=== PATIENT | female | born 1945 | race Caucasian/White ===

== ENCOUNTER → 2025-04-14 | Outpatient (CLI) | payer MEDICARE, OTHER, SELFPAY ==
--- NOTE | 2025-04-14 15:15 | RAD_ITS ---
PROCEDURE: CHEST PA AND LATERAL 04/14/2025 REASON FOR EXAM: COUGH TECHNIQUE: CHEST PA AND LATERAL COMPARISON: none FINDINGS: No focal consolidation. No pleural effusion or pneumothorax. Cardiac silhouette is within normal limits. Calcified aortic arch. No acute fractures. Right neck vesna. RAD/Chest PA and Lateral IMPRESSION: No focal consolidations. Reading Location: [facility]
== END | disposition home or self-care (01) ==
PROVIDERS: PCP Internal Medicine; Referring Provider Otolaryngology; Visit Provider Otolaryngology
DX: R05.9 Cough, unspecified (principal)
CPT/HCPCS: 71046

== ENCOUNTER 2025-04-20 10:20 | Observation (INO) | payer MEDICARE, OTHER, SELFPAY ==
[2025-04-20] VITALS (14 sets, daily range): BP systolic 136–174; BP diastolic 56–71; PULSE 42–56; RESP 10–21; TEMP 36.2–36.5; O2SAT 94–100; BMI 38.2; BMI 39.2
--- NOTE | 2025-04-20 10:50 | RAD_ITS ---
PROCEDURE: CHEST PA AND LATERAL 04/20/2025 REASON FOR EXAM: CHEST PAIN TECHNIQUE: CHEST PA AND LATERAL COMPARISON: April 14, 2025 FINDINGS: Hardware: EKG leads are present. Heart: Normal size. Aortic knob is atherosclerotic. Mediastinum: Normal Lungs: Clear. No pneumothorax or pleural effusion. Bones: Degenerative changes are identified within the thoracic spine. Advanced degenerative change with loose bodies at the proximal left humerus. Surgical clips overlying the thyroid gland. RAD/Chest PA and Lateral IMPRESSION: No acute cardiopulmonary process. Reading Location: [id number]
--- NOTE | 2025-04-20 10:50 | RAD_ITS ---
PROCEDURE: CHEST PA AND LATERAL 04/20/2025 REASON FOR EXAM: CHEST PAIN TECHNIQUE: CHEST PA AND LATERAL COMPARISON: April 14, 2025 FINDINGS: Hardware: EKG leads are present. Heart: Normal size. Aortic knob is atherosclerotic. Mediastinum: Normal Lungs: Clear. No pneumothorax or pleural effusion. Bones: Degenerative changes are identified within the thoracic spine. Advanced degenerative change with loose bodies at the proximal left humerus. Surgical clips overlying the thyroid gland. RAD/Chest PA and Lateral IMPRESSION: No acute cardiopulmonary process. Reading Location: [id number]
[2025-04-20 10:53] LABS: Hematocrit 45.8 % (37-47); Hemoglobin 14.8 g/dL (12.0-15.0); Immature Granulocytes Count 0.030 X10^3/uL (0.0-0.0); Mean Corp Hgb Conc 32.3 g/dL (32-36); Mean Corpuscular Volume 100.2 fL (81-99); Mean Platelet Vol. 10.6 fl (6.2-12.0); NRBC Flagged by Analyzer 0 % (0-5); Platelet Count 198 K/mm3 (150-450); RBC Distribution Width CV 13.2 % (11.6-14.6); RBC Distribution Width SD 48.6 fl (35.1-43.9); Red Blood Count 4.57 M/mm3 (4.2-5.4); White Blood Count 7.7 K/mm3 (4.4-11.0)
[2025-04-20 11:27] LABS: Anion Gap 11 (5-15); BUN 25 mg/dL (4-19); BUN/Creat Ratio 28.7 RATIO (10-20); Calcium,Total 9.5 mg/dL (7.6-11.0); Carbon Dioxide 24.4 mmol/L (21.0-32.0); Chloride 105 mmol/L (98-108); Estimated Creatinine Clearance 61.60 ml/min (50-250); Glucose 89 mg/dL (70-99); Potassium 4.7 mmol/L (3.3-5.1); Troponin T High Sensitivity 12 ng/L (<=14)
--- NOTE | 2025-04-20 12:13 | ED.VIS.CHEST ---
HPI History of Present Illness Chief Complaint: Chest Pain Narrative Narrative: Patient is a 79-year-old female presenting emergency department for chest pain. Patient has a past medical history of hypertension and hyperlipidemia. Patient states that she developed chest pain last night that she was about to go to sleep. She states she took Tums and it went away. She states today while she was at the dentist with her she developed midsternal chest pain that felt like a pressure that radiated across the front of her chest. She states it radiated up into her neck as well. She denies any shortness of breath. Denies any nausea, vomiting, diaphoresis. Denies any abdominal pain, dysuria, hematuria. Denies lower extremity edema. [facility] Medical History Hypercholesteremia Hypertension History of throat cancer Home Medications ?Medication ?Instructions ?Recorded ?Last Taken ?Type paroxetine HCl 40 mg tablet (Paxil) 20 mg PO DAILY 08/13/13 04/19/25 History Lactobacillus acidophilus 500 mmu cells PO DAILY 04/20/25 Unknown History (Acidophilus capsule) aspirin 81 mg capsule 81 mg PO DAILY 04/20/25 04/19/25 History atorvastatin 20 mg tablet 20 mg PO DAILY 04/20/25 04/19/25 History cholecalciferol (vitamin D3) 25 25 mcg PO DAILY 04/20/25 04/19/25 History mcg (1,000 unit) chewable tablet (VitaJoy Daily D) cyanocobalamin (B12)-cobamamide 5,000 robin sublingual DAILY 04/20/25 04/19/25 History 5,000 mcg-100 mcg sublingual supplement lozenge (B12) doxepin 10 mg/mL oral concentrate 5 mg PO DAILY 04/20/25 04/19/25 History levothyroxine 75 mcg tablet 75 mcg PO DAILY 04/20/25 04/20/25 History (Synthroid) lisinopril 5 mg tablet 5 mg PO DAILY 04/20/25 04/19/25 History multivitamin-ferrous 2 tab PO DAILY 04/20/25 Unknown History fumarate-folic acid 18 mg-400 mcg tablet ([employer] Complete Women's) omeprazole 20 mg capsule,delayed 20 mg PO DAILY 04/20/25 04/20/25 History release Allergy/AdvReac Type Severity Reaction Status Date / Time Sulfa (Sulfonamide Allergy Mild Rash Verified 04/20/25 10:21 Antibiotics) Family History Other Heart disease Surgical History History of surgery on wrist Hx of lymph node excision Social History Smoking Status: Former smoker ROS ROS ED ROS Narrative Please see HPI EXAM Physical Exam Narrative Exam Narrative: Vital signs: Reviewed General: Alert and oriented. No acute distress HEENT: Head is normocephalic and atraumatic, sinuses nontender, pupils equal round and reactive. Nares are patent. Oropharynx and throat exams normal. Neck: Supple without lymphadenopathy nontender Cardiovascular: Regular rate and rhythm, no murmurs. No rubs or gallops. Normal S1 and S2 Respiratory: Clear to auscultation bilaterally. No wheezes, rales, rhonchi Abdominal: Soft and tender. Normal bowel sounds. No guarding or rebound. Nonsurgical abdomen Extremities: No tenderness. No bruising. Normal range of motion. Normal sensation. Skin: No rash or redness. Neurological: Cranial nerves II through XII are grossly intact. Normal strength and sensation. Normal cerebellar function The rest of the physical exam is unremarkable Const Vital Signs: 04/20/25 10:21 04/20/25 10:25 04/20/25 11:30 Temperature 97.7 F L Temperature Source Oral Pulse Rate 51 L 49 L Respiratory Rate 12 13 Respiratory Pattern Normal Blood Pressure 174/62 H 161/56 H Blood Pressure Mean 99 86 Pulse Ox 97 99 Oxygen Delivery Method Room Air 04/20/25 11:45 04/20/25 12:00 04/20/25 12:15 Temperature Temperature Source Pulse Rate 46 L 47 L 42 L Respiratory Rate 13 21 H 10 L Respiratory Pattern Blood Pressure 155/71 H 158/67 H 154/61 H Blood Pressure Mean 95 95 89 Pulse Ox 97 99 98 Oxygen Delivery Method 04/20/25 12:30 04/20/25 12:45 04/20/25 13:00 Temperature Temperature Source Pulse Rate 43 L 47 L 42 L Respiratory Rate 11 L 12 10 L Respiratory Pattern Blood Pressure 163/59 H 157/63 H 152/58 H Blood Pressure Mean 89 92 86 Pulse Ox 97 97 100 Oxygen Delivery Method 04/20/25 14:00 04/20/25 15:00 04/20/25 15:04 Temperature 97.7 F L Temperature Source Pulse Rate 47 L 47 L 47 L Respiratory Rate 14 14 Respiratory Pattern Blood Pressure 143/59 H 158/62 H 158/62 H Blood Pressure Mean 87 94 94 Pulse Ox 99 97 97 Oxygen Delivery Method Room Air Room Air Heart Score History: Moderately Suspicious ECG: Normal Age: >/= 65 years Risk Factors: >/= 3 Risk Factors or History of CAD Troponin: </= Normal Limit Score: 5 MDM MDM MDM Narrative Medical decision making narrative: Patient is a 79-year-old female presenting to emergency department for chest pain. Patient was seen and examined. Vitals are stable. Patient resting bed comfortably no acute distress. Differential includes is not limited to ACS, less likely PE with no shortness of breath or hypoxia and no tachycardia, less likely aortic pathology, no ripping or tearing chest pain, pulses equal throughout, no significant HTN on exam. EKG shows sinus bradycardia with PACs. No ST elevation or depression noted. No significant T wave inversions. Chest x-ray, labs including troponin were ordered. Troponin reflex within normal limits. Blood work is largely unremarkable. Chest x-ray shows no acute radiographic abnormality. Patient was reevaluated and is pain-free at this time. Repeat EKG with no significant changes. Patient's heart score is elevated and they recommended admission for further cardiac evaluation, patient agreeable. Patient admitted to hospitalist under Dr. Henriquez for further management. Lab Data Labs: Laboratory Results - last 24 hr 04/20/25 04/20/25 04/20/25 10:25 13:11 15:00 WBC 7.7 RBC 4.57 Hgb 14.8 Hct 45.8 MCV 100.2 H MCH 32.4 H MCHC 32.3 RDW Std Deviation 48.6 H RDW Coeff of Awa 13.2 Plt Count 198 MPV 10.6 Immature Gran % (Auto) 0.400 Neut % (Auto) 59.5 Lymph % (Auto) 27.6 [place] % (Auto) 11.5 H Eos % (Auto) 0.5 Baso % (Auto) 0.5 Absolute Neuts (auto) 4.6 Absolute Lymphs (auto) 2.13 Nucleated RBC % 0 Sodium 141 Potassium 4.7 Chloride 105 Carbon Dioxide 24.4 Anion Gap 11 BUN 25 H Creatinine 0.87 Estim Creat Clear Calc 61.60 Est GFR (MDRD) Non-Af 68 BUN/Creatinine Ratio 28.7 H Glucose 89 Calcium 9.5 Troponin T High Sens 12 Troponin T Hi Sens 2 Hr 11 Troponin T Hi Sens 4Hr 12 Radiography Chest X-Ray - ED: 2 View, Read by ED Physician, No Acute Disease and No Infiltrates Diagnostic Testing: Clinical Impression(s) from Imaging Studies Chest X-Ray 04/20/25 10:50 IMPRESSION: No acute cardiopulmonary process. Reading Location: [id number] Management Discussion w/another healthcare provider: Hospitalist Discharge Plan Disposition Disposition: Acute Care Hospital [facility] Discharge Date/Time: 04/20/25 16:32
--- NOTE | 2025-04-20 12:36 | EKG12_ITS ---
Test Reason : CP Blood Pressure : */* mmHG Vent. Rate : 43 BPM Atrial Rate : 43 BPM P-R Int : 144 ms QRS Dur : 86 ms QT Int : 442 ms P-R-T Axes : 53 13 36 degrees QTcB Int : 373 ms Marked sinus bradycardia Abnormal ECG Confirmed by SONJA YBARRA, ROWAN ([id number]), supervising editor news reel MARYLIN ALY ([id number]) on 04/22/2025 7:35:40 AM Referred By: Confirmed By: ROWAN CASILLAS MD
--- NOTE | 2025-04-20 12:36 | EKG12_ITS ---
Test Reason : CP Blood Pressure : */* mmHG Vent. Rate : 43 BPM Atrial Rate : 43 BPM P-R Int : 144 ms QRS Dur : 86 ms QT Int : 442 ms P-R-T Axes : 53 13 36 degrees QTcB Int : 373 ms Marked sinus bradycardia Abnormal ECG Confirmed by SONJA YBARRA, ROWAN ([id number]), senior editor MARYLIN ALY ([id number]) on 04/22/2025 7:35:40 AM Referred By: Confirmed By: ROWAN CASILLAS MD
[2025-04-20 14:08] LABS: Troponin T High Sens 2 HR 11 ng/L (<=14)
[2025-04-20 15:37] LABS: Troponin T High Sens 4 HR 12 ng/L (<=14)
--- NOTE | 2025-04-20 16:02 | PCM.HP.STD ---
[facility] - General General Date of Service: 04/20/25 Chief Complaint: Chest pain [facility] Narrative REYNA ARCE, is a 79 F who presents with chest pain. Patient had 2 bouts of chest pain. The first was last night when she was sitting in her recliner she had a midsternal chest pain. Took some Tums and symptoms resolved shortly thereafter. And today she was in a waiting room for her 's doctor's appointment where she had chest pain and went across her chest. It lasted until she got to the emergency room. She did not take Tums at that time. By time she arrived to emergency room, her symptoms had resolved. She did not any other associated symptoms such as shortness of breath, diaphoresis, and abdominal pain. She presented to the emergency room and her workup here was unremarkable. Patient did have a stress test performed 2 years ago when she was living in [place] and that was negative. She had seen a tile grinder at that time who told her it was due to stress and anxiety. Patient did have chest pain back in 2012 where she underwent a left heart catheterization [facility] Medical History Hypercholesteremia Hypertension History of throat cancer Home Medications ?Medication ?Instructions ?Recorded ?Last Taken ?Type Bifidobacterium infantis 4 mg 4 mg PO DAILY 08/13/13 Unknown History capsule (Align (B.infantis)) Ranitidine [Zantac] 150 mg PO BID 08/13/13 Unknown History acetaminophen 650 mg 650 mg PO PRN PRN Pain 08/13/13 Unknown History tablet,extended release (Tylenol Arthritis Pain) alprazolam 0.5 mg tablet 0.5 mg PO BID 08/13/13 08/18/13 History aluminum hydrox-magnesium carb 254 355 ml PO 4X/DAY 08/13/13 Unknown History mg-237.5 mg/5 mL oral suspension (Gaviscon Extra Strength) amlodipine 5 mg tablet 5 mg PO DAILY 08/13/13 08/18/13 History calcium 500 mg (as 1 tab PO DAILY@0800 08/13/13 Unknown History carbonate)-vitamin D3 5 mcg (200 unit) tablet (Oyster Shell Calcium-Vitamin D3) lisinopril 40 mg tablet 40 mg PO DAILY 08/13/13 08/18/13 History metoprolol succinate 25 mg 25 mg PO DAILY 08/13/13 08/18/13 History tablet,extended release 24 hr oxybutynin chloride 10 mg 10 mg PO DAILY 08/13/13 Unknown History tablet,extended release 24 hr (Ditropan XL) paroxetine HCl 40 mg tablet (Paxil) 40 mg PO DAILY 08/13/13 08/18/13 History Allergy/AdvReac Type Severity Reaction Status Date / Time Sulfa (Sulfonamide Allergy Mild Rash Verified 04/20/25 10:21 Antibiotics) Family History Other Heart disease Surgical History History of surgery on wrist Hx of lymph node excision Social History Smoking Status: Former smoker ROS ROS Narrative All review of systems were negative except as mentioned above in the history of present illness and the other review of systems. Vital Signs Vital Signs Vital Signs: 04/20/25 10:21 04/20/25 10:25 04/20/25 11:30 Temperature 36.5 C L Temperature Source Oral Pulse Rate 51 L 49 L Respiratory Rate 12 13 Respiratory Pattern Normal Blood Pressure 174/62 H 161/56 H Blood Pressure Mean 99 86 Pulse Ox 97 99 Oxygen Delivery Method Room Air 04/20/25 11:45 04/20/25 12:00 04/20/25 12:15 Temperature Temperature Source Pulse Rate 46 L 47 L 42 L Respiratory Rate 13 21 H 10 L Respiratory Pattern Blood Pressure 155/71 H 158/67 H 154/61 H Blood Pressure Mean 95 95 89 Pulse Ox 97 99 98 Oxygen Delivery Method 04/20/25 12:30 04/20/25 12:45 04/20/25 13:00 Temperature Temperature Source Pulse Rate 43 L 47 L 42 L Respiratory Rate 11 L 12 10 L Respiratory Pattern Blood Pressure 163/59 H 157/63 H 152/58 H Blood Pressure Mean 89 92 86 Pulse Ox 97 97 100 Oxygen Delivery Method 04/20/25 14:00 04/20/25 15:00 04/20/25 15:04 Temperature 36.5 C L Temperature Source Pulse Rate 47 L 47 L 47 L Respiratory Rate 14 14 Respiratory Pattern Blood Pressure 143/59 H 158/62 H 158/62 H Blood Pressure Mean 87 94 94 Pulse Ox 99 97 97 Oxygen Delivery Method Room Air Room Air Weight Weight: 101 kg Body Mass Index (BMI) 38.2 Physical Exam Narrative - Physical Exam General: Alert, Oriented x3, Cooperative HEENT: Atraumatic, PERRLA, EOMI, Normocephalic Oral: Moist Mucosa, No Gingival or Mucosal Lesions/ Ulcerations Neck: Supple, No JVD, Negative Carotid Bruits Lungs: Clear to auscultation, Normal air movement Cardiovascular: Regular rate, Normal S1, Normal S2, No murmurs Abdomen: Bowel Sounds Present, Soft, Non Tender, Non-Distended, No Hepato-splenomegaly Extremities: No clubbing, No cyanosis, No edema, Capillary Refill Less than 3 Seconds Skin: No rashes, No breakdown Musculoskeletal: No Tenderness to Palpation of Joints or Extremities. Reproducible anterior chest wall tenderness. Neurological: Moves all extremities spontaneously. Psych/Mental Status: Normal Affect, Appropriate Results Lab / Micro Data Attestation: I reviewed the patient's lab results. 04/20/25 10:25 04/20/25 10:25 Labs: Laboratory Results - last 24 hr 04/20/25 10:25: WBC 7.7, RBC 4.57, Hgb 14.8, Hct 45.8, MCV 100.2 H, MCH 32.4 H, MCHC 32.3, RDW Std Deviation 48.6 H, RDW Coeff of Awa 13.2, Plt Count 198, MPV 10.6, Immature Gran % (Auto) 0.400, Neut % (Auto) 59.5, Lymph % (Auto) 27.6, [place] % (Auto) 11.5 H, Eos % (Auto) 0.5, Baso % (Auto) 0.5, Absolute Neuts (auto) 4.6, Absolute Lymphs (auto) 2.13, Nucleated RBC % 0, Sodium 141, Potassium 4.7, Chloride 105, Carbon Dioxide 24.4, Anion Gap 11, BUN 25 H, Creatinine 0.87, Estim Creat Clear Calc 61.60, Est GFR (MDRD) Non-Af 68, BUN/Creatinine Ratio 28.7 H, Glucose 89, Calcium 9.5, Troponin T High Sens 12 04/20/25 13:11: Troponin T Hi Sens 2 Hr 11 04/20/25 15:00: Troponin T Hi Sens 4Hr 12 EKG Initial EKG: Attestation: I personally reviewed and interpreted this EKG as follows: Prior EKG tracings: available for review EKG Rhythm Intrepretation: Sinus Bradycardia Imaging Radiology Impression Chest X-Ray 04/20/25 10:50 IMPRESSION: No acute cardiopulmonary process. Reading Location: [facility] Assessment & Plan Assessment/Plan (1) Chest pain: PLAN: Atypical Workup here has been unremarkable with negative troponin series. Patient had moved down to [place] and has recently back to the area. She does have a primary care doctor but does not have an appointment set up at this point in time. Explained to she and her family that I do not feel this is actually cardiac but could be related with GI issues as she does have a history of reflux and explained that this could be esophageal spasm given the intensity of chest pain and a negative cardiac workup. I did tell she and her family that she could do this is outpatient but it may be more difficult as she is not fully established with her primary care doctor yet to have stress test performed as outpatient. After lengthy discussion she agreed brought in to have a stress test. She is requesting a chemical stress test. Will start aspirin. If stress test is negative then we will discharge patient home . PLAN: Plan Hypertension: Continue lisinopril and metoprolol Anxiety: Continue with paroxetine VTE prophylaxis: Low risk given current observation status. CODE STATUS: Addressed with the patient. Patient wishes to be full code. Charges/Coding Visit Charges Inpatient E&M: 02668 Init Hosp L2
--- NOTE | 2025-04-20 16:02 | PCM.HP.STD ---
[facility] - General General Date of Service: 04/20/25 Chief Complaint: Chest pain [facility] Narrative REYNA ARCE, is a 79 F who presents with chest pain. Patient had 2 bouts of chest pain. The first was last night when she was sitting in her recliner she had a midsternal chest pain. Took some Tums and symptoms resolved shortly thereafter. And today she was in a waiting room for her 's doctor's appointment where she had chest pain and went across her chest. It lasted until she got to the emergency room. She did not take Tums at that time. By time she arrived to emergency room, her symptoms had resolved. She did not any other associated symptoms such as shortness of breath, diaphoresis, and abdominal pain. She presented to the emergency room and her workup here was unremarkable. Patient did have a stress test performed 2 years ago when she was living in [place] and that was negative. She had seen a marble installer at that time who told her it was due to stress and anxiety. Patient did have chest pain back in 2012 where she underwent a left heart catheterization [facility] Medical History Hypercholesteremia Hypertension History of throat cancer Home Medications ?Medication ?Instructions ?Recorded ?Last Taken ?Type Bifidobacterium infantis 4 mg 4 mg PO DAILY 08/13/13 Unknown History capsule (Align (B.infantis)) Ranitidine [Zantac] 150 mg PO BID 08/13/13 Unknown History acetaminophen 650 mg 650 mg PO PRN PRN Pain 08/13/13 Unknown History tablet,extended release (Tylenol Arthritis Pain) alprazolam 0.5 mg tablet 0.5 mg PO BID 08/13/13 08/18/13 History aluminum hydrox-magnesium carb 254 355 ml PO 4X/DAY 08/13/13 Unknown History mg-237.5 mg/5 mL oral suspension (Gaviscon Extra Strength) amlodipine 5 mg tablet 5 mg PO DAILY 08/13/13 08/18/13 History calcium 500 mg (as 1 tab PO DAILY@0800 08/13/13 Unknown History carbonate)-vitamin D3 5 mcg (200 unit) tablet (Oyster Shell Calcium-Vitamin D3) lisinopril 40 mg tablet 40 mg PO DAILY 08/13/13 08/18/13 History metoprolol succinate 25 mg 25 mg PO DAILY 08/13/13 08/18/13 History tablet,extended release 24 hr oxybutynin chloride 10 mg 10 mg PO DAILY 08/13/13 Unknown History tablet,extended release 24 hr (Ditropan XL) paroxetine HCl 40 mg tablet (Paxil) 40 mg PO DAILY 08/13/13 08/18/13 History Allergy/AdvReac Type Severity Reaction Status Date / Time Sulfa (Sulfonamide Allergy Mild Rash Verified 04/20/25 10:21 Antibiotics) Family History Other Heart disease Surgical History History of surgery on wrist Hx of lymph node excision Social History Smoking Status: Former smoker ROS ROS Narrative All review of systems were negative except as mentioned above in the history of present illness and the other review of systems. Vital Signs Vital Signs Vital Signs: 04/20/25 10:21 04/20/25 10:25 04/20/25 11:30 Temperature 36.5 C L Temperature Source Oral Pulse Rate 51 L 49 L Respiratory Rate 12 13 Respiratory Pattern Normal Blood Pressure 174/62 H 161/56 H Blood Pressure Mean 99 86 Pulse Ox 97 99 Oxygen Delivery Method Room Air 04/20/25 11:45 04/20/25 12:00 04/20/25 12:15 Temperature Temperature Source Pulse Rate 46 L 47 L 42 L Respiratory Rate 13 21 H 10 L Respiratory Pattern Blood Pressure 155/71 H 158/67 H 154/61 H Blood Pressure Mean 95 95 89 Pulse Ox 97 99 98 Oxygen Delivery Method 04/20/25 12:30 04/20/25 12:45 04/20/25 13:00 Temperature Temperature Source Pulse Rate 43 L 47 L 42 L Respiratory Rate 11 L 12 10 L Respiratory Pattern Blood Pressure 163/59 H 157/63 H 152/58 H Blood Pressure Mean 89 92 86 Pulse Ox 97 97 100 Oxygen Delivery Method 04/20/25 14:00 04/20/25 15:00 04/20/25 15:04 Temperature 36.5 C L Temperature Source Pulse Rate 47 L 47 L 47 L Respiratory Rate 14 14 Respiratory Pattern Blood Pressure 143/59 H 158/62 H 158/62 H Blood Pressure Mean 87 94 94 Pulse Ox 99 97 97 Oxygen Delivery Method Room Air Room Air Weight Weight: 101 kg Body Mass Index (BMI) 38.2 Physical Exam Narrative - Physical Exam General: Alert, Oriented x3, Cooperative HEENT: Atraumatic, PERRLA, EOMI, Normocephalic Oral: Moist Mucosa, No Gingival or Mucosal Lesions/ Ulcerations Neck: Supple, No JVD, Negative Carotid Bruits Lungs: Clear to auscultation, Normal air movement Cardiovascular: Regular rate, Normal S1, Normal S2, No murmurs Abdomen: Bowel Sounds Present, Soft, Non Tender, Non-Distended, No Hepato-splenomegaly Extremities: No clubbing, No cyanosis, No edema, Capillary Refill Less than 3 Seconds Skin: No rashes, No breakdown Musculoskeletal: No Tenderness to Palpation of Joints or Extremities. Reproducible anterior chest wall tenderness. Neurological: Moves all extremities spontaneously. Psych/Mental Status: Normal Affect, Appropriate Results Lab / Micro Data Attestation: I reviewed the patient's lab results. 04/20/25 10:25 04/20/25 10:25 Labs: Laboratory Results - last 24 hr 04/20/25 10:25: WBC 7.7, RBC 4.57, Hgb 14.8, Hct 45.8, MCV 100.2 H, MCH 32.4 H, MCHC 32.3, RDW Std Deviation 48.6 H, RDW Coeff of Awa 13.2, Plt Count 198, MPV 10.6, Immature Gran % (Auto) 0.400, Neut % (Auto) 59.5, Lymph % (Auto) 27.6, [place] % (Auto) 11.5 H, Eos % (Auto) 0.5, Baso % (Auto) 0.5, Absolute Neuts (auto) 4.6, Absolute Lymphs (auto) 2.13, Nucleated RBC % 0, Sodium 141, Potassium 4.7, Chloride 105, Carbon Dioxide 24.4, Anion Gap 11, BUN 25 H, Creatinine 0.87, Estim Creat Clear Calc 61.60, Est GFR (MDRD) Non-Af 68, BUN/Creatinine Ratio 28.7 H, Glucose 89, Calcium 9.5, Troponin T High Sens 12 04/20/25 13:11: Troponin T Hi Sens 2 Hr 11 04/20/25 15:00: Troponin T Hi Sens 4Hr 12 EKG Initial EKG: Attestation: I personally reviewed and interpreted this EKG as follows: Prior EKG tracings: available for review EKG Rhythm Intrepretation: Sinus Bradycardia Imaging Radiology Impression Chest X-Ray 04/20/25 10:50 IMPRESSION: No acute cardiopulmonary process. Reading Location: [facility] Assessment & Plan Assessment/Plan (1) Chest pain: PLAN: Atypical Workup here has been unremarkable with negative troponin series. Patient had moved down to [place] and has recently back to the area. She does have a primary care doctor but does not have an appointment set up at this point in time. Explained to she and her family that I do not feel this is actually cardiac but could be related with GI issues as she does have a history of reflux and explained that this could be esophageal spasm given the intensity of chest pain and a negative cardiac workup. I did tell she and her family that she could do this is outpatient but it may be more difficult as she is not fully established with her primary care doctor yet to have stress test performed as outpatient. After lengthy discussion she agreed brought in to have a stress test. She is requesting a chemical stress test. Will start aspirin. If stress test is negative then we will discharge patient home . PLAN: Plan Hypertension: Continue lisinopril and metoprolol Anxiety: Continue with paroxetine VTE prophylaxis: Low risk given current observation status. CODE STATUS: Addressed with the patient. Patient wishes to be full code. Charges/Coding Visit Charges Inpatient E&M: 40596 Init Hosp L2
--- NOTE | 2025-04-20 16:08 | CASEMGMT ---
Care Management Face to Face with patient for initial transition planning/care coordination assessment in the ED. 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 Patient alert and oriented. Patient willing to participate in assessment and is able to answer all questions appropriately. Patient's and children present at bedside; patient gave permission to speak in front of guests. Care providers, pharmacy, and demographics verified. Admitting Diagnosis: chest pain Other diagnosis history: hypertension, hyperlipidemia, throat cancer. PCP: Crystal Frye Specialists: orthopedic surgeon at [facility], though name is unknown Preferred Pharmacy: [facility] Insurance: Medicare A B (primary). Aetna Supplement (secondary). Prescription Benefit: yes Living Will/HPOA: yes, Gerardo is listed as primary. Gerardo intends to bring documents in during admission. LNOK: , Gerardo. Daughter, Zara. Son, Enio. Living Arrangements: with in a 1 story home with a basement; patient does not need to go to basement. 2 steps if entering from garage, 1 step if entering from front porch. Independent with all ADLs/IADLs. Transportation: patient drives DME: none HHC: none SNF/Rehab: none Community Resources: none Patient goals: Patient wishes to discharge home, denies need for home health care at this time. Patient denies any further needs or concerns at this time. Disposition Plan: admission to acute; RN CM/SW to follow for discharge planning needs that may arise. Raquel Gonzalez, RECEIPT AND REPORT CLERK, POISING INSPECTOR
--- NOTE | 2025-04-20 16:08 | CASEMGMT ---
Care Management Face to Face with patient for initial transition planning/care coordination assessment in the ED. This song writer introduced self and role at [facility]. Patient alert and oriented. Patient willing to participate in assessment and is able to answer all questions appropriately. Patient's and children present at bedside; patient gave permission to speak in front of guests. Care providers, pharmacy, and demographics verified. Admitting Diagnosis: chest pain Other diagnosis history: hypertension, hyperlipidemia, throat cancer. PCP: Crystal Frye Specialists: orthopedic surgeon at [facility], though name is unknown Preferred Pharmacy: [facility] Insurance: Medicare A B (primary). Aetna Supplement (secondary). Prescription Benefit: yes Living Will/HPOA: yes, Gerardo is listed as primary. Gerardo intends to bring documents in during admission. LNOK: , Gerardo. Daughter, Zara. Son, Enio. Living Arrangements: with in a 1 story home with a basement; patient does not need to go to basement. 2 steps if entering from garage, 1 step if entering from front porch. Independent with all ADLs/IADLs. Transportation: patient drives DME: none HHC: none SNF/Rehab: none Community Resources: none Patient goals: Patient wishes to discharge home, denies need for home health care at this time. Patient denies any further needs or concerns at this time. Disposition Plan: admission to acute; RN CM/SW to follow for discharge planning needs that may arise. Raquel Gonzalez, MANAGER HOME HEALTHCARE, TOWER EQUIPMENT INSTALLER
--- NOTE | 2025-04-20 16:45 | EKG12_ITS ---
Test Reason : Blood Pressure : */* mmHG Vent. Rate : 49 BPM Atrial Rate : 49 BPM P-R Int : 140 ms QRS Dur : 84 ms QT Int : 414 ms P-R-T Axes : 48 13 43 degrees QTcB Int : 373 ms Sinus bradycardia with Premature atrial complexes Otherwise normal ECG Confirmed by SONJA YBARRA, ROWAN ([id number]), science editor MARYLIN ALY ([id number]) on 04/22/2025 7:35:49 AM Referred By: Confirmed By: ROWAN CASILLAS MD
--- NOTE | 2025-04-20 16:45 | EKG12_ITS ---
Test Reason : Blood Pressure : */* mmHG Vent. Rate : 49 BPM Atrial Rate : 49 BPM P-R Int : 140 ms QRS Dur : 84 ms QT Int : 414 ms P-R-T Axes : 48 13 43 degrees QTcB Int : 373 ms Sinus bradycardia with Premature atrial complexes Otherwise normal ECG Confirmed by SONJA YBARRA, ROWAN ([id number]), editor map MARYLIN ALY ([id number]) on 04/22/2025 7:35:49 AM Referred By: Confirmed By: ROWAN CASILLAS MD
[2025-04-20] MEDS: 0.9% Saline Lock 10 ML Syringe IV (22:13)
[2025-04-20] MEDS: MELATONIN 10 MG TABLET 5 MG PO (22:13)
--- OUTSIDE RECORDS SUMMARY | 2025-04-20 22:57 | XMS RPT_ITS | CCD ---
Author Organization [facility] Care Team Providers Care Flue Gas Analyst Name Role Phone Unavailable Primary Care Provider UnavailEmma [place] Primary Care Provider Elizabeth Frye MD Primary Care Provider SHAMA CUELLAR Attending Unavailable SELF Referring Unavailable EILZABETH FRYE Primary Care Unavailable SHAMA CUELLAR Referring Unavailable ELIZABETH FRYE Primary Care Unavailable SHAMA CUELLAR Referring Unavailable ELIZABETH FRYE Primary Care Unavailable Yaron Lozoya Attending Unavailable Teagan Moura Primary Care Unavailable Uday Elizabeth Efren Primary Care Unavailable Maikel Carrasco Attending Unavailable Maikel Carrasco Referring Unavailable Dr. Elizabeth Frye MD Primary Care Provider [phone] Dr. Maikel Carrasco MD Attending Provider [phone] Maikel Carrasco MD Referring Provider Dr. Maile Muñoz MD Emergency Provider Unavailab Dr. Erich Ch DO Admit Provider Dr. Erich Henriquez DO Attending Provider Allergies Allergy Classification Reported Allergen(s) Allergy Type Date of Onset Reaction(s) Facility (2 sources) Sulfonamides (Antibiotic); Translations: [SULFA (SULFONAMIDE ANTIBIOTICS)] Drug Allergy 03-27-2025 [facility] (1 source) Sulfonamides (Antibiotic) Allergy to substance 04-20-2025 [facility] Medications Current Medications Medication Drug Class(es) Dates Sig (Normalized) Sig (Original) aspirin 81 mg oral tablet (2 sources) Platelet Aggregation Inhibitor, Nonsteroidal Anti-inflammatory Drug Start: 04-20-2025 take 1 capsule by mouth once daily Aspirin 81 mg capsule Active 81 mg PO DAILY April 20, 2025 12:00am Aspirin 81 mg ta b Take 81 mg by mouth. Active atorvastatin 20 mg oral tablet (2 sources) HMG-CoA Reductase Inhibitor Start: 04-20-2025 take 1 tablet by mouth once daily Atorvastatin 20 mg tablet Active 20 mg PO DAILY April 20, 2025 12:00am Start: 12-29-2024 take 1 tablet by zoarn th once daily atorvastatin (LIPITOR) 20 mg tablet Take 20 mg by mouth once daily. 12/29/2024 Active calcium carbonate 1250 mg / cholecalciferol 200 unt oral tablet (1 source) Vitamin D Start: 08-13-2013 take 1 tablet by mouth once daily Calcium Carbonate-Vitamin D3 (Os-Jack 500mg + D) 1 TABLET tablet Active 1 {tbl} PO DAILY@0800 August 13, 2013 1:00am cetirizine hydrochloride 10 mg oral capsule (1 source) Histamine-1 Receptor Antagonist Cetirizine (ZYRTEC) 10 mg cap Take by mouth. Active cholecalciferol 0.025 mg chewable tablet (1 source) Vitamin D Start: 04-20-2025 Cholecalciferol (Vitamin D3) (Vitajoy Daily D) 25 mcg (1,000 unit) tablet,chewable Active 25 ug PO DAILY April 20, 2025 12:00am cobamamide 0.1 mg / vitamin b12 5 mg sublingual tablet (1 source) Vitamin B12 Start: 04-20-2025 Cyanocobalamin-Cobama mide (B12) 5,000-100 mcg lozenge Active 5000 NMA SL April 20, 2025 12:00am cyanocobalamin/cobam amide (B12 SUBLINGUAL) (1 source) cyanocobalamin/c obama mide (B12 SUBLINGUAL) Dissolve 5,000 mcg under the tongue. Active doxepin hydrochloride 10 mg/ml oral solution (4 sources) Tricyclic Antidepressant Start: 04-20-2025 take 5 mg by mouth once daily Doxepin 10 mg/mL concentrate Active 5 mg PO DAILY April 20, 2025 12:00am Start: 03-27-2025 take 5 mg by mouth e very twenty-four hours as needed doxepin solution 10 mg/mL Take 0.5 mL by mouth at bedtime as needed for sedation. 03/27/2025 Active Start: 12-03-2024 End: 03-27-2025 take 10 mg by mouth once daily at bedtime doxepin solution 10 mg/mL Take 10 mg by mouth daily at bedtime. 12/03/2024 03/27/2025 Discontinued End: 03-27-2025 doxepin mouthwash 10 mg/mL (SINEquan) Use 5 mg as instructed every 24 hours. 03/27/2025 Discontinued fluticasone propionate 0.05 mg/actuat metered dose nasal spray (1 source) Corticosteroid take 2 spray(s) nasal route once daily fluticasone (FLONASE ALLERGY RELIEF) 50 mcg/actuation nasal spray Use 2 sprays in each nostril once daily. Active 12 hr guaiFENesin 600 mg extended release oral tablet (1 source) guaiFENesin (MUC INEX) 600 mg 12 hr tablet Take 600 mg by mouth as needed for cold/allergy symptoms. Active Lactobacillus acidophilus (2 sources) Start: Acidophilus Active April 20, 2025 12:00am Lactobacillus ac idophilus (ACIDOPHILUS PO) Take by mouth. Active levothyroxine sodium 0.075 mg oral tablet (2 sources) l-Thyroxine Start: 04-20-2025 take 1 tablet by mouth once daily Levothyroxine (Levothyroxine 75 Mcg Tablet) 75 mcg tablet Active 75 ug PO DAILY April 20, 2025 12:00am Start: 03-15-2025 take 1 tablet by zoran th once daily before breakfast SYNTHROID 75 mcg tablet Take 75 mcg by mouth daily before breakfast. 03/15/2025 Active lisinopril 5 mg oral tablet (3 sources) Angiotensin Converting Enzyme Inhibitor Start: 04-20-2025 take 1 tablet by mouth once daily Lisinopril 5 mg tablet Active 5 mg PO DAILY April 20, 2025 12:00am Start: 08-13-2013 End: 04-20-2025 take 1 tablet by mouth once daily Lisinopril 40 MG tablet Discontinued 40 mg PO DAILY August 13, 2013 1:00am April 20, 2025 4:13pm take 1 tablet by zoran th once daily lisinopril (ZESTRIL) 5 mg tablet Take 5 mg by mouth once daily. Active Vycegfhhjqvfa-Nqsiilva-Wnupf n (MULTIVITAMIN 50 PLUS) tab (1 source) Multivitamins-Mi nerals-Lutein (MULTIVITAMIN 50 PLUS) tab Take 1 tablet by mouth once daily. Active omeprazole 20 mg delayed rel ease oral capsule (2 sources) Proton Pump Inhibitor St ar t: take 1 capsule by mouth once daily Omeprazole 20 mg capsule,delayed release(DR/EC) Active 20 mg PO DAILY April 20, 2025 12:00am Start: 03-03-2025 take 1 capsule by [facility] once daily omeprazole (PRILOSEC) 20 mg capsule Take 20 mg by mouth once daily. 03/03/2025 Active PARoxetine mesylate 40 mg oral tablet (3 sources) Serotonin Reuptake Inhibitor Start: 08-13-2013 Paroxetine Hcl (Paxi l) 40 MG tablet Active 20 mg PO DAILY August 13, 2013 1:00am take 1 tablet by zoran once daily PARoxetine (PAXIL) 20 mg tablet Take 20 mg by mouth once daily. Active End: 03-27-2025 PARoxetine (PAXIL) 40 mg tab let Take 20 mg by mouth once daily. 03/27/2025 Discontinued (Dosage adjustment) ubidecarenone 100 mg oral ca psule (1 source) coenzyme Q10 (CO Q-10) 100 mg cap capsule Take 100 mg by mouth two times a day. Active Completed/Discontinued Medications Medication Drug Class(es) Dates Sig (Normalized) Sig (Original) 8 hr acetaminophen 650 mg extended release oral tablet (1 source) Start: 08-13-2013 End: 04-20-2025 Acetaminophen (Tylenol Arthritis) 650 MG tablet extended release Discontinued 650 mg PO NEEDED as needed for Pain August 13, 2013 1:00am April 20, 2025 4:12pm ALPRAZolam 0.5 mg oral tablet (1 source) Benzodiazepine Start: 08-13-2013 End: 04-20-2025 take 1 tablet by mouth twice daily Alprazolam 0.5 MG tablet Discontinued 0.5 mg PO TWICE A DAY August 13, 2013 1:00am April 20, 2025 4:12pm aluminum hydroxide 50.8 mg/ml / magnesium carbonate 47.5 mg/ml oral suspension (1 source) Start: 08-13-2013 End: 04-20-2025 take 1 mL by mouth four times daily Aluminum Hydrox-Magnesium Carb (Gaviscon Extra Strength Liq) 355 ML suspension Discontinued 355 mL PO 4 TIMES DAILY August 13, 2013 1:00am April 20, 2025 4:13pm amLODIPine 5 mg oral tablet (1 source) Dihydropyridine Calcium Channel Oscar Start: 08-13-2013 End: 04-20-2025 take 1 tablet by mouth once daily Amlodipine 5 MG tablet Discontinued 5 mg PO DAILY August 13, 2013 1:00am April 20, 2025 4:13pm bifidobacterium infantis 4 mg oral capsule (1 source) Start: 08-13-2013 End: 04-20-2025 take 1 capsule by mouth once daily Bifidobacterium Infantis (Align) 4 MG capsule Discontinued 4 mg PO DAILY August 13, 2013 1:00am April 20, 2025 4:13pm 24 hr metoprolol succinate 25 mg extended release oral tablet (1 source) beta-Adrenergic Oscar Start: 08-13-2013 End: 04-20-2025 take 1 tablet by mouth once daily Metoprolol Succinate 25 MG tablet Discontinued 25 mg PO DAILY August 13, 2013 1:00am April 20, 2025 4:13pm 24 hr oxybutynin chloride 10 mg extended release oral tablet (1 source) Cholinergic Muscarinic Antagonist Start: 08-13-2013 End: 04-20-2025 take 1 tablet by mouth once daily Oxybutynin Chloride (Ditropan Xl) 10 MG tablet extended release 24hr Discontinued 10 mg PO DAILY August 13, 2013 1:00am April 20, 2025 4:13pm raNITIdine 150 mg oral tablet (1 source) Histamine-2 Receptor Antagonist Start: 08-13-2013 End: 04-20-2025 take 1 tablet by mouth twice daily Ranitidine (Zantac) 150 MG tablet Discontinued 150 mg PO TWICE A DAY August 13, 2013 1:00am April 20, 2025 4:14pm Problems Active Problems Problem Classification Problem Date Documented Date Episodic/Chronic Cancer of head and neck (4 sources) History of malignant neoplasm of head and/or neck; Translations: [Personal history of malignant neoplasm of unspecified site of lip, oral cavity, and pharynx] Onset: 03-27-2025 03-27-2025 Episodic Disorders of lipid metabolism (3 sources) Hyperlipidemia; Translations: [Other hyperlipidemia] Onset: 03-27-2025 03-27-2025 Chronic Esophageal disorders (3 sources) Gastroesophageal reflux disease without esophagitis; Translations: [Gastro-esophageal reflux disease without esophagitis] Onset: 03-27-2025 03-27-2025 Chronic Essential hypertension (3 sources) Essential hypertension; Translations: [Essential (primary) hypertension] Onset: 03-27-2025 03-27-2025 Chronic Immunizations and screening for infectious disease (4 sources) Viral screening status; Translations: [Encounter for screening for other viral diseases] Onset: 03-27-2025 03-27-2025 Episodic Nonspecific chest pain (2 sources) Chest pain; Translations: [Chest pain, unspecified] 04-20-2025 Episodic Other connective tissue disease (3 sources) History of total knee arthroplasty; Translations: [Presence of right artificial knee joint] Onset: 09-17-2008 03-27-2025 Chronic Other connective tissue disease (1 source) Presence of right artificial knee joint; Translations: [Total knee replacement status, right] Onset: 03-27-2025 Chronic Other nervous system disorders (3 sources) Other chronic pain; Translations: [Chronic pain of both shoulders] Onset: 03-27-2025 Chronic Other non-traumatic joint disorders (1 source) Bilateral chronic pain of upper limbs; Translations: [Pain in right shoulder] 03-27-2025 Episodic Other non-traumatic joint disorders (2 sources) Pain in left knee; Translations: [Pain in joint, lower leg] Onset: 03-27-2025 03-27-2025 Episodic Other non-traumatic joint disorders (1 source) Pain in right shoulder; Translations: [Chronic pain of both shoulders] Onset: 03-27-2025 Episodic Other non-traumatic joint disorders (1 source) Pain in left shoulder; Translations: [Chronic pain of both shoulders] Onset: 03-27-2025 Episodic Other screening for suspected conditions (not mental disorders or infectious disease) (4 sources) Patient encounter status; Translations: [Encounter for screening mammogram for malignant neoplasm of breast] Onset: 03-27-2025 03-27-2025 Episodic Residual codes; unclassified (2 sources) Menopause present; Translations: [Asymptomatic menopausal state] 03-27-2025 Episodic Residual codes; unclassified (1 source) Asymptomatic menopausal state; Translations: [Asymptomatic menopause] Onset: 03-27-2025 Episodic Screening and history of mental health and substance abuse codes (2 sources) Encounter for screening for depression; Translations: [Encounter for screening examination for other mental health and behavioral disorders] Onset: 03-27-2025 Episodic Spondylosis; intervertebral disc disorders; other back problems (3 sources) Chronic neck pain; Translations: [Cervicalgia] Onset: 03-27-2025 03-27-2025 Episodic Thyroid disorders (3 sources) Acquired hypothyroidism; Translations: [Hypothyroidism, unspecified] Onset: 03-27-2025 03-27-2025 Chronic Unclassified (2 sources) Patient encounter status 03-27-2025 Unclassified (1 source) Bilateral chronic pain of upper limbs 03-27-2025 Unclassified (1 source) Chronic pain of left knee 03-27-2025 Past or Other Problems Problem Classification Problem Date Documented Da te Episodic/Chronic Other gastrointestinal disorders (1 source) Pharyngeal dysphagia; Translations: [Dysphagia, pharyngeal phase] Onset: 03-27-2025 Resolved: 03-27-2025 03-27-2025 Episodic Results Test Name Value Interpretation Reference Range Facility Absolute lymphocyte countOrd ered By: Maile Muñoz on 04-20-2025 Lymphocytes Auto (Unsp spec) [#/Vol] 2.13 10*3/uL 0.83-4.51 [facility] Absolute neutrophil countOrd ered By: Maile Muñoz on 04-20-2025 Neutrophils (Bld) [#/Vol] 4.6 10*3/uL 2.0-7.7 [facility] Anion gap in Serum or Plasma Ordered By: Maile Muñoz on 04-20-2025 Anion gap [Moles/Vol] 11 mmol/L 5-15 [facility] Automated lymphocyte count a s percentage of total leukocytesOrdered By: Maile Muñoz on 04-20-2025 Lymphocytes/100 WBC Auto (Unsp spec) 27.6 % 19-41 [facility] BUN/creatinine ratioOrdered By: Maile Muñoz on 04-20-2025 Urea nitrogen/Creatinine [Mass ratio] 28.7 mg/mg High 10-20 [facility] Basophil percentageOrdered B y: Maile Muñoz on 04-20-2025 Basophils/100 WBC (Bld) 0.5 % 0-1 [facility] Carbon dioxide, total [Moles /volume] in Central venous bloodOrdered By: Maile Muñoz on 04-20-2025 CO2 [Moles/Vol] 24.4 mmol/L 21.0-32.0 [facility] Chloride assayOrdered By: Ramón Muñoz on 04-20-2025 Chloride [Moles/Vol] 105 mmol/L 98-108 [facility] Eosinophil percentageOrdered By: Maile Muñoz on 04-20-2025 Eosinophils/100 WBC (Bld) 0.5 % 0-5 [facility] Erythrocyte distribution wid th ratioOrdered By: Maile Muñoz on 04-20-2025 Erythrocyte distribution width (RBC) [Ratio] 13.2 % 11.6-14.6 [facility] Erythrocyte distribution wid th standard deviationOrdered By: Maile Muñoz on 04-20-2025 Erythrocyte distribution width (RBC) [Ratio] 48.6 fl High 35.1-43.9 [facility] Glomerular filtration rate ( GFR) estimation/1.73 sq m using serum, plasma, or whole bOrdered By: Maile Muñoz on 04-20-2025 GFR/1.73 sq M.predicted among non-blacks MDRD (S/P/Bld) [Vol rate/Area] 68 mL/min/{1.73_m2} >60 [facility] Comment on above: mL/min/1.73m2 CKD-EP I Creatinine Equation (2020) Hematocrit Auto (Bld) [Volum e fraction]Ordered By: Maile Muñoz on 04-20-2025 Hematocrit (Bld) [Volume fraction] 45.8 % 37-47 [facility] Hemoglobin measurementOrdere d By: Maile Muñoz on 04-20-2025 Hemoglobin (Bld) [Mass/Vol] 14.8 g/dL 12.0-15.0 [facility] Immature granulocytes/100 WB C Auto (Bld)Ordered By: Maile Muñoz on 04-20-2025 Immature granulocytes/100 WBC (Bld) 0.400 % 0.0-0.9 [facility] Comment on above: IG% - Immature Granu locytes (promyelocytes, myelocytes and metamyelocytes) > 1% indicates that a LEFT SHIFT is Present. MCV (mean corpuscular volume ) determinationOrdered By: Maile Muñoz on 04-20-2025 MCV (RBC) [Entitic vol] 100.2 fL High 81-99 [facility] Mean corpuscular hemoglobin (MCH) determinationOrdered By: Maile Muñoz on 04-20-2025 MCH (RBC) [Entitic mass] 32.4 pg High 27.0-32.0 [facility] Mean corpuscular hemoglobin concentration (MCHC) determinationOrdered By: Maile Muñoz on 04-20-2025 MCHC (RBC) [Mass/Vol] 32.3 g/dL 32-36 [facility] Mean platelet volume determi nationOrdered By: Maile Muñoz on 04-20-2025 Platelet mean volume (Bld) [Entitic vol] 10.6 fL 6.2-12.0 [facility] Monocyte percentageOrdered B y: Maile Muñoz on 04-20-2025 Monocytes/100 WBC (Bld) 11.5 % High 0-10 [facility] Neutrophil percentageOrdered By: Maile Muñoz on 04-20-2025 Neutrophils/100 WBC (Bld) 59.5 % 47-70 [facility] Nucleated red blood cell per centageOrdered By: Maile Muñoz on 04-20-2025 Nucleated RBC/100 WBC (Bld) [Ratio] 0 % 0-5 [facility] Platelet countOrdered By: Ramón Muñoz on 04-20-2025 Platelets (Bld) [#/Vol] 198 10*3/uL 150-450 [facility] Potassium measurement (mass/ volume)Ordered By: Maile Muñoz on 04-20-2025 Potassium (Unsp spec) [Mass/Vol] 4.7 mmol/L 3.3-5.1 [facility] Comment on above: Hemolysis present, R esults could be affected. RBC Auto (Bld) [#/Vol]Ordere d By: Maile Muñoz on 04-20-2025 RBC (Bld) [#/Vol] 4.57 10*6/uL 4.2-5.4 [facility] Serum creatinine measurement (mass/volume)Ordered By: Maile Muñoz on 04-20-2025 Creatinine [Mass/Vol] 0.87 mg/dL 0.70-1.20 [facility] Serum glucose measurement (m ass/volume)Ordered By: Maile Muñoz on 04-20-2025 Glucose [Mass/Vol] 89 mg/dL 70-99 [facility] Serum or plasma calcium jose urement (mass/volume)Ordered By: Maile Muñoz on 04-20-2025 Calcium [Mass/Vol] 9.5 mg/dL 7.6-11.0 [facility] Serum or plasma urea nitroge n measurement (mass/volume)Ordered By: Maile Muñoz on 04-20-2025 Urea nitrogen [Mass/Vol] 25 mg/dL High 4-19 [facility] Sodium levelOrdered By: Erich Muñoz on 04-20-2025 Sodium [Moles/Vol] 141 mmol/L 133-145 [facility] Troponin T.cardiac [Mass/vol ume] in Serum or Plasma by High sensitivity methodOrdered By: Maile Muñoz on 04-20-2025 Troponin T.cardiac High sensitivity method [Mass/Vol] 11 ng/L <14 [facility] Troponin T.cardiac High sensitivity method [Mass/Vol] 12 ng/L <14 [facility] Comment on above: Hemolysis present, R esults could be affected. White blood cell (WBC) count Ordered By: Maile Muñoz on 04-20-2025 WBC (Bld) [#/Vol] 7.7 10*3/uL 4.4-11.0 [facility] Chest PA and Lateralon 04-14 Chest PA and Lateral [facility] Imaging Services [address] [place] [address] [id number] Chest PA and Lateral MR#: [id number] Acct: [id number] Name: ANNETTA MURDOCK Rep #: [id number] : 1945 F [id number] From: Jean Schwartz PCP: Dr. Elizabeth Frye MD Status: [facility] CLI Study: Chest PA and Lateral Date of Exam: 04/14/25 Exam# [id number] Ordering Dr: Maikel Carrasco MD PROCEDURE: CHEST PA AND LATERAL 04/14/2025 REASON FOR EXAM: COUGH TECHNIQUE: CHEST PA AND LATERAL COMPARISON: none FINDINGS: No focal consolidation. No pleural effusion or pneumothorax. Cardiac silhouette is within normal limits. Calcified aortic arch. No acute fractures. Right neck vesna. RAD/Chest PA and Lateral IMPRESSION: No focal consolidations. Reading Location: [facility] CC: Dr. Maikel Carrasco MD; Dr. Elizabeth Frye MD Patrol Man: Signed Normal [facility] Lipid 1996 panelon 5 Cholesterol [Mass/Vol] 140 mg/dL Normal <200 [facility] Comment on above: Order Comment: Masha king Type: BLOOD SPECIMEN Ordering Facility: [facility] Address: [address] [place] [address] Result Comment: <200 mg/dL, Desirable 200-239 mg/dL, Borderline high >239 mg/dL, High Performed By: #### 2 4331-1 #### [facility] CLIA [id number] [address] [place] [address] STATES OF [facility] CLIA [id number] [address] [place] [address] Cholesterol in HDL [Mass/Vol] 65 mg/dL Normal >39 [facility] Comment on above: Order Comment: Masha king Type: BLOOD SPECIMEN Ordering Facility: [facility] Address: [address] [place] [address] Result Comment: 40-5 9 mg/dL, Acceptable >59 mg/dL, High: Negative risk factor for coronary heart disease <40 mg/dL, Low: Positive risk factor for coronary heart disease Performed By: #### 2 4331-1 #### [facility] CLIA [id number] [address] [place] [address] STATES OF [facility] CLIA [id number] [address] [place] [address] Cholesterol in LDL [Mass/Vol] 59 mg/dL Normal <100 [facility] Comment on above: Order Comment: Masha men Type: BLOOD SPECIMEN Ordering Facility: [facility] Address: [address] [place] [address] Result Comment: <100 mg/dL, Optimal 100-129 mg/dL, Near optimal/above optimal 130-159 mg/dL, Borderline high 160-189 mg/dL, High >189 mg/dL, Very high Secondary prevention optimal LDL Cholesterol levels are recommended to be <70 mg/dL LDL cholesterol is calculated using the Matthews-NIH equation. Performed By: #### 2 4331-1 #### [facility] CLIA [id number] [address] [place] [address] [place] [facility] CLIA [id number] [address] [place] [address] [place] Cholesterol in LDL/Cholesterol in HDL [Mass ratio] 0.91 {ratio} Normal <2.54 [facility] Comment on above: Order Comment: Speci men Type: BLOOD SPECIMEN Ordering Facility: [facility] Address: [address] [place] [address] Result Comment: Keo solis: 1. National Cholesterol Education Program ATP III Guideline At-A-Glance Quick Desk Reference: National Heart, Lung, and Blood [place]. National Institutes of Health. 2001: NIH Publication No. 01-3305. 2. An International Atherosclerosis Society position paper: global recommendations for the management of dyslipidemia: executive summary, Atherosclerosis. 2014: 232(2):410-413. Performed By: #### 2 4331-1 #### [facility] CLIA [id number] [address] [place] [address] [place] [facility] CLIA [id number] [address] [place] [address] [place] Cholesterol in VLDL [Mass/Vol] 12 mg/dL Normal <30 [facility] Comment on above: Order Comment: Speci men Type: BLOOD SPECIMEN Ordering Facility: [facility] Address: [address] [place] [address] Performed By: #### 2 4331-1 #### [facility] CLIA [id number] [address] [place], [place] [id number] [place] [facility] CLIA [id number] [address] [place] [address] [place] Cholesterol non HDL [Mass/Vol] 75 mg/dL Normal <130 [facility] Comment on above: Order Comment: Speci men Type: BLOOD SPECIMEN Ordering Facility: [facility] Address: [address] [place] [address] Result Comment: <130 mg/dL, Optimal 130-159 mg/dL, Near optimal/above optimal 160-189 mg/dL, Borderline high 190-219 mg/dL, High >219 mg/dL, Very high Secondary prevention optimal non HDL Cholesterol levels are recommended to be <100 mg/dL Performed By: #### 2 4331-1 #### [facility] CLIA [id number] [address] [place] [address] [place] [facility] CLIA [id number] [address] [place] [address] [place] Cholesterol.total/Choles terol in HDL [Mass ratio] 2.15 {ratio} Normal <5.10 [facility] Comment on above: Order Comment: Speci men Type: BLOOD SPECIMEN Ordering Facility: [facility] Address: [address] [place] [address] Performed By: #### 2 4331-1 #### [facility] CLIA [id number] [address] [place] [address] [place] [facility] CLIA [id number] [address] [place] [address] [place] FASTING TIME 12 hrs Normal [facility] Comment on above: Order Comment: Speci men Type: BLOOD SPECIMEN Ordering Facility: [facility] Address: [address] [place] [address] Performed By: #### 2 4331-1 #### [facility] CLIA [id number] [address] [place] [address] [place] [facility] CLIA [id number] [address] [place] [address] STATES [facility] Triglyceride [Mass/Vol] 86 mg/dL Normal <150 [facility] Comment on above: Order Comment: Speci men Type: BLOOD SPECIMEN Ordering Facility: [facility] Address: [address] [place] [address] Result Comment: <150 mg/dL, Normal 150-199 mg/dL, Borderline high 200-499 mg/dL, High >499 mg/dL, Very high Performed By: #### 2 4331-1 #### [facility] CLIA [id number] [address] [place] [address] [address] [address] [place] [facility] CLIA [id number] [address] [place] [address] [place] OF [facility] CBC W Auto Differential pane l (Bld)on 03-27-2025 Basophils (Bld) [#/Vol] 0.06 10*3/uL [facility] Basophils/100 WBC (Bld) 0.8 % C [facility] Differential cell count method Nom (Bld) Auto [facility] Eosinophils (Bld) [#/Vol] 0.12 10*3/uL [facility] Eosinophils/100 WBC (Bld) 1.5 % [facility] Erythrocyte distribution width (RBC) [Ratio] 13 % 11.5 - 15.0 % [facility] Hematocrit (Bld) [Volume fraction] 46.6 % High 36.0 - 46.0 % [facility] Hemoglobin (Bld) [Mass/Vol] 15.2 g/dL 11.5 - 15.5 g/dL [facility] Immature granulocytes (Bld) [#/Vol] NINF [facility] Immature granulocytes/100 WBC (Bld) 0.1 % [facility] Interpretation and review of laboratory results Abnormal [facility] Lymphocytes (Bld) [#/Vol] 1.88 10*3/uL [facility] Lymphocytes/100 WBC (Bld) 23.8 % [facility] MCH (RBC) [Entitic mass] 32.7 pg 26. 0 - 34.0 pg [facility] MCHC (RBC) [Mass/Vol] 32.6 g/dL 30.5 - 36.0 g/dL [facility] MCV (RBC) [Entitic vol] 100.2 fL High 80.0 - 100.0 fL [facility] Monocytes (Bld) [#/Vol] 0.81 10*3/uL [facility] Monocytes/100 WBC (Bld) 10.2 % [facility] Neutrophils (Bld) [#/Vol] 5.03 10*3/uL [facility] Neutrophils/100 WBC (Bld) 63.6 % [facility] Nucleated RBC (Bld) [#/Vol] NINF [facility] Nucleated RBC/100 WBC (Bld) [Ratio] 0 % /100 WBC [facility] Platelet mean volume (Bld) [Entitic vol] 11.3 fL 9.0 - 12.7 fL [facility] Platelets (Bld) [#/Vol] 226 10*3/uL [facility] RBC (Bld) [#/Vol] 4.65 10*6/uL 3.90 - 5.2 0 m/uL [facility] WBC (Bld) [#/Vol] 7.91 10*3/uL [facility] Basophils (Bld) [#/Vol] 0.06 10*3/uL Normal <0.11 [facility] Comment on above: Order Comment: Speci men Type: BLOOD SPECIMEN Ordering Facility: [facility] Address: [address] [place] [address] Performed By: #### 5 7021-8 #### [facility] CLIA [id number] [address] [place] [address] [place] Basophils/100 WBC (Bld) 0.8 % Normal [facility] Comment on above: Order Comment: Speci men Type: BLOOD SPECIMEN Ordering Facility: [facility] Address: [address] [place] [address] Performed By: #### 5 7021-8 #### [facility] CLIA [id number] [address] [place] [address] [place] Differential cell count method Nom (Bld) Auto Normal [facility] Comment on above: Order Comment: Speci men Type: BLOOD SPECIMEN Ordering Facility: [facility] Address: [address] [place] [address] Performed By: #### 5 7021-8 #### [facility] CLIA [id number] [address] [place] [address] [place] Eosinophils (Bld) [#/Vol] 0.12 10*3/uL Normal <0.46 [facility] Comment on above: Order Comment: Speci men Type: BLOOD SPECIMEN Ordering Facility: [facility] Address: [address] [place] [address] Performed By: #### 5 7021-8 #### [facility] CLIA [id number] [address] [place] [address] [place] Eosinophils/100 WBC (Bld) 1.5 % Normal [facility] Comment on above: Order Comment: Speci men Type: BLOOD SPECIMEN Ordering Facility: [facility] Address: [address] [place] [address] Performed By: #### 5 7021-8 #### [facility] CLIA [id number] [address] [place] [address] [place] Erythrocyte distribution width (RBC) [Ratio] 13.0 % Normal 11.5-15.0 [facility] Comment on above: Order Comment: Speci men Type: BLOOD SPECIMEN Ordering Facility: [facility] Address: [address] [place] [address] Performed By: #### 5 7021-8 #### [facility] CLIA [id number] [address] [place] [address] [place] Hematocrit (Bld) [Volume fraction] 46.6 % High 36.0-46.0 [facility] Comment on above: Order Comment: Speci men Type: BLOOD SPECIMEN Ordering Facility: [facility] Address: [address] [place] [address] Performed By: #### 5 7021-8 #### [facility] CLIA [id number] [address] [place] [address] [place] Hemoglobin (Bld) [Mass/Vol] 15.2 g/dL Normal 11.5-15.5 [facility] Comment on above: Order Comment: Speci men Type: BLOOD SPECIMEN Ordering Facility: [facility] Address: [address] [place] [address] Performed By: #### 5 7021-8 #### [facility] CLIA [id number] [address] [place] [address] [place] Immature granulocytes (Bld) [#/Vol] 10*3/uL Normal <0.10 [facility] Comment on above: Order Comment: Speci men Type: BLOOD SPECIMEN Ordering Facility: [facility] Address: [address] [place] [address] Performed By: #### 5 7021-8 #### [facility] CLIA [id number] [address] [place] [address] [place] Immature granulocytes/100 WBC (Bld) 0.1 % Normal [facility] Comment on above: Order Comment: Speci men Type: BLOOD SPECIMEN Ordering Facility: [facility] Address: [address] [place] [address] Performed By: #### 5 7021-8 #### [facility] CLIA [id number] [address] [place] [address] [place] Lymphocytes (Bld) [#/Vol] 1.88 10*3/uL Normal 1.00-4.00 [facility] Comment on above: Order Comment: Speci men Type: BLOOD SPECIMEN Ordering Facility: [facility] Address: [address] [place] [address] Performed By: #### 5 7021-8 #### [facility] CLIA [id number] [address] [place] [address] [place] Lymphocytes/100 WBC (Bld) 23.8 % Normal [facility] Comment on above: Order Comment: Speci men Type: BLOOD SPECIMEN Ordering Facility: [facility] Address: [address] [place] [address] Performed By: #### 5 7021-8 #### [facility] CLIA [id number] [address] [place] [address] [place] MCH (RBC) [Entitic mass] 32.7 pg Normal 26.0-34.0 [facility] Comment on above: Order Comment: Speci men Type: BLOOD SPECIMEN Ordering Facility: [facility] Address: [address] [place] [address] Performed By: #### 5 7021-8 #### [facility] CLIA [id number] [address] [place] [address] [place] MCHC (RBC) [Mass/Vol] 32.6 g/dL Normal 30.5-36.0 [facility] Comment on above: Order Comment: Speci men Type: BLOOD SPECIMEN Ordering Facility: [facility] Address: [address] [place] [address] Performed By: #### 5 7021-8 #### [facility] CLIA [id number] [address] [place] [address] [place] MCV (RBC) [Entitic vol] 100.2 fL High 80.0-100.0 [facility] Comment on above: Order Comment: Speci men Type: BLOOD SPECIMEN Ordering Facility: [facility] Address: [address] [place] [address] Performed By: #### 5 7021-8 #### [facility] CLIA [id number] [address] [place] [address] [place] Monocytes (Bld) [#/Vol] 0.81 10*3/uL Normal <0.87 [facility] Comment on above: Order Comment: Speci men Type: BLOOD SPECIMEN Ordering Facility: [facility] Address: [address] [place], [place] [address] Performed By: #### 5 7021-8 #### [facility] CLIA [id number] [address] [place] [address] [place] Monocytes/100 WBC (Bld) 10.2 % Normal [facility] Comment on above: Order Comment: Speci men Type: BLOOD SPECIMEN Ordering Facility: [facility] Address: [address] [place] [address] Performed By: #### 5 7021-8 #### [facility] CLIA [id number] [address] [place] [address] [place] Neutrophils (Bld) [#/Vol] 5.03 10*3/uL Normal 1.45-7.50 [facility] Comment on above: Order Comment: Speci men Type: BLOOD SPECIMEN Ordering Facility: [facility] Address: [address] [place] [address] Performed By: #### 5 7021-8 #### [facility] CLIA [id number] [address] [place] [address] [place] Neutrophils/100 WBC (Bld) 63.6 % Normal [facility] Comment on above: Order Comment: Speci men Type: BLOOD SPECIMEN Ordering Facility: [facility] Address: [address] [place] [address] Performed By: #### 5 7021-8 #### [facility] CLIA [id number] [address] [place] [address] [place] Nucleated RBC (Bld) [#/Vol] 10*3/uL Normal <0.01 [facility] Comment on above: Order Comment: Speci men Type: BLOOD SPECIMEN Ordering Facility: [facility] Address: [address] [place] [address] Performed By: #### 5 7021-8 #### [facility] CLIA [id number] [address] [place] [address] [place] Nucleated RBC/100 WBC (Bld) [Ratio] 0.0 /100 WBC Normal [facility] Comment on above: Order Comment: Speci men Type: BLOOD SPECIMEN Ordering Facility: [facility] Address: [address] [place] [address] Performed By: #### 5 7021-8 #### [facility] CLIA [id number] [address] [place] [address] [place] Platelet mean volume (Bld) [Entitic vol] 11.3 fL Normal 9.0-12.7 [facility] Comment on above: Order Comment: Speci men Type: BLOOD SPECIMEN Ordering Facility: [facility] Address: [address] [place] [address] Performed By: #### 5 7021-8 #### [facility] CLIA [id number] [address] [place] [address] [place] Platelets (Bld) [#/Vol] 226 10*3/uL Normal 150-400 [facility] Comment on above: Order Comment: Speci men Type: BLOOD SPECIMEN Ordering Facility: [facility] Address: [address] [place] [address] Performed By: #### 5 7021-8 #### [facility] CLIA [id number] [address] [place] [address] [place] RBC (Bld) [#/Vol] 4.65 10*6/uL Normal 3.90-5.20 [facility] Comment on above: Order Comment: Speci men Type: BLOOD SPECIMEN Ordering Facility: [facility] Address: [address] [place] [address] Performed By: #### 5 7021-8 #### [facility] CLIA [id number] [address] [place] [address] [place] WBC (Bld) [#/Vol] 7.91 10*3/uL Normal 3.70-11.00 [facility] Comment on above: Order Comment: Speci men Type: BLOOD SPECIMEN Ordering Facility: [facility] Address: [address] [place] [address] Performed By: #### 5 7021-8 #### [facility] CLIA [id number] [address] [place] [address] [place] [address] [place] CNOVon 03-27-2025 CNOV Office Visit (INTMWS) ANNETTA MURDOCK ([id number]) 1945 F Date Time Provider Department 03/27/25 1:00 PM SHAMA CUELLAR INTMWS During your visit today, we recorded the following information about you: Pulse Blood pressure Weight Height 98/minute 112/68 100.2 kg 1.6 m Shama Cuellar, [employer].DIRECTOR OF PRECLINICAL RESEARCH 03/27/2025 1:54 PM Signed Subjective Patient ID: Annetta is a 79 year old female who presents for Establish Care. HPI Annetta Murdock is a 79-year-old female with a history of anxiety, depression, HTN, hyperlipidemia, and throat cancer, presenting for an initial visit and evaluation of left knee pain. Presents today to [facility] care with Elizabeth Frye MD See scanned documents, prior physicians. Left Knee Pain: - Left knee pain, described as locking up after sitting for a while. - Pain alleviated by standing for a few seconds before moving the leg. - Recent steroid injection provided temporary relief. - No issues with the right knee, which had a knee replacement in 2008. Neck and Back Pain: - Recent onset of neck and back pain. - Previously managed shoulder and knee pain with a toy painter in [place]. Throat Cancer: - Diagnosed in 2017; underwent lymph node removal, partial tonsillectomy, 35 radiation treatments, and 2 chemotherapy sessions. - Last ENT visit was a month before moving; throat was checked and appeared normal. - Has been cancer-free since 2021. - Reports recent allergy and sinus-like symptoms. Anxiety: - Managed with paroxetine 20 mg daily. - Describes herself as a worrier. - Also taking doxepin 5 mg at night for sleep. Hypertension: - Managed with medication; last blood work was approximately 3 months ago. HTN: No reported headache, chest pain, palpitations, dyspnea, and peripheral edema. Last 3 Encounter BP Readings: Date: BP: 03/27/2025 112/68 Hyperlipidemia: Ms. Murdock doing well on current therapy. - Managed with medication; last blood work was approximately 3 months ago. Family History: - Mother had diabetes, at 84. - Father had heart disease, at 73. Social History: - Former smoker, quit in 1988 after smoking 1-2 packs per day for approximately 20 years. - Recently moved back to the area to be closer to family. - for 13 years, together for 16 years. - is on Annetta's medical advanced directive Objective BP 112/68 Pulse 98 Ht 160 cm (5' 2.99) Wt 100.2 kg (220 lb 14.4 oz) BMI 39.14 kg/m? Physical Exam Vitals and nursing note reviewed. Constitutional: Appearance: Normal appearance. HENT: Head: Normocephalic and atraumatic. Eyes: Conjunctiva/sclera: Conjunctivae normal. Neck: Thyroid: No thyromegaly. Vascular: No carotid bruit. Comments: well healed surgical site right side of neck Cardiovascular: Rate and Rhythm: Normal rate and regular rhythm. Heart sounds: Normal heart sounds. Pulmonary: Effort: Pulmonary effort is normal. Breath sounds: Normal breath sounds. Abdominal: General: Bowel sounds are normal. Palpations: Abdomen is soft. Skin: General: Skin is warm and dry. Neurological: General: No focal deficit present. Mental Status: She is alert and oriented to person, place, and time. 1. Primary hypertension (I10) - Managed with current medication regimen. - Ordered lab work to monitor blood pressure control. Stable on current management continue unchanged. 2. Acquired hypothyroidism (E03.9) Stable on current management continue unchanged. - Ordered lab work to assess thyroid function. 3. Other hyperlipidemia (E78.49) Stable on current management continue unchanged. - Ordered lipid panel to monitor cholesterol levels. 4. Gastroesophageal reflux disease without esophagitis (K21.9) Stable on current management continue unchanged. - No current issues reported. 5. Screening for depression (Z13.31) 6. Encounter for screening examination for other mental health and behavioral disorders (Z13.39) - is currently taking paroxetine 20 mg daily for anxiety. Stable on current management continue unchanged. 7. Special screening examination for viral disease (Z11.59) - Ordered hepatitis C screening. 8. Encounter for immunization (Z23) - Discussed COVID booster; to check current status. - Plans to receive flu shot in May. 9. Asymptomatic menopause (Z78.0) BMD recommended if not completed in last 2-4 years. - No current issues reported. 10. 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 11. Chronic pain of both shoulders (M25.511) - Discussed potential referral to pain management if needed. 12. Chronic neck pain (M54.2) - Discussed potential referral to pain management if needed. 13. Chronic pain of left knee (M25.562) - Recent steroid injection provided temporary relief. - Referred to orthopedics for furt (more content not included)... Normal [facility] Comprehensive metabolic 2000 panelon 03-27-2025 Albumin [Mass/Vol] 4.2 g/dL Normal 3.9-4.9 [facility] Comment on above: Order Comment: Speci men Type: BLOOD SPECIMEN Ordering Facility: [facility] Address: [address] [place] [address] Performed By: #### 3 016-3, 72693-9, LIPNF #### [facility] CLIA [id number] [address] [place] [address] [place] ALP [Catalytic activity/Vol] 95 U/L Normal 34-123 [facility] Comment on above: Order Comment: Speci men Type: BLOOD SPECIMEN Ordering Facility: [facility] Address: [address] [place] [address] Performed By: #### 3 016-3, 24561-8, LIPNF #### [facility] CLIA [id number] [address] [place], [place] [address] [place] ALT [Catalytic activity/Vol] 18 U/L Normal 7-38 [facility] Comment on above: Order Comment: Speci men Type: BLOOD SPECIMEN Ordering Facility: [facility] Address: [address] [place] [address] Performed By: #### 3 016-3, 90249-8, LIPNF #### [facility] CLIA [id number] [address] [place] [address] [place] Anion gap [Moles/Vol] 13 mmol/L Normal 8-15 [facility] Comment on above: Order Comment: Speci men Type: BLOOD SPECIMEN Ordering Facility: [facility] Address: [address] [place] [address] Performed By: #### 3 016-3, 92704-9, LIPNF #### [facility] CLIA [id number] [address] [place] [address] [place] AST [Catalytic activity/Vol] 30 U/L Normal 13-35 [facility] Comment on above: Order Comment: Speci men Type: BLOOD SPECIMEN Ordering Facility: [facility] Address: [address] [place] [address] Performed By: #### 3 016-3, 43128-6, LIPNF #### [facility] CLIA [id number] [address] [place] [address] [place] Bilirubin [Mass/Vol] 0.4 mg/dL Normal 0.2-1.3 [facility] Comment on above: Order Comment: Speci men Type: BLOOD SPECIMEN Ordering Facility: [facility] Address: [address] [place] [address] Performed By: #### 3 016-3, 29718-1, LIPNF #### [facility] CLIA [id number] [address] [place] [address] [place] Calcium [Mass/Vol] 10.0 mg/dL Normal 8.5-10.2 [facility] Comment on above: Order Comment: Speci men Type: BLOOD SPECIMEN Ordering Facility: [facility] Address: [address] [place] [address] Performed By: #### 3 016-3, 43818-0, LIPNF #### [facility] CLIA [id number] [address] [place] [address] [place] Chloride [Moles/Vol] 104 mmol/L Normal 98-107 [facility] Comment on above: Order Comment: Speci men Type: BLOOD SPECIMEN Ordering Facility: [facility] Address: [address] [place] [address] Performed By: #### 3 016-3, 85541-4, LIPNF #### [facility] CLIA [id number] [address] [place] [address] [place] CO2 [Moles/Vol] 24 mmol/L Normal 22-30 [facility] Comment on above: Order Comment: Speci men Type: BLOOD SPECIMEN Ordering Facility: [facility] Address: [address] [place] [address] Performed By: #### 3 016-3, 71669-3, LIPNF #### [facility] CLIA [id number] [address] [place] [address] [place] Creatinine [Mass/Vol] 0.91 mg/dL Normal 0.58-0.96 [facility] Comment on above: Order Comment: Speci men Type: BLOOD SPECIMEN Ordering Facility: [facility] Address: [address] [place] [address] Performed By: #### 3 016-3, 13741-1, LIPNF #### [facility] CLIA [id number] [address] [place] [address] [place] Creatinine and Glomerular filtration rate.predicted panel (S/P/Bld) 65 mL/min/1.73m??? Normal >=60 [facility] Comment on above: Order Comment: Speci men Type: BLOOD SPECIMEN Ordering Facility: [facility] Address: [address] [place] [address] Result Comment: Emilie mated Glomerular Filtration Rate (eGFR) is calculated using the 2020 CKD-EPI creatinine equation. This equation utilizes serum creatinine, sex, and age as parameters. The creatinine assay has traceable calibration to isotope dilution-mass spectrometry. Refer to KDIGO guidelines for clinical interpretation. In patients with unstable renal function, e.g. those with acute kidney injury, the eGFR may not accurately reflect actual GFR. Performed By: #### 3 016-3, 07124-9, LIPNF #### [facility] CLIA [id number] [address] [place] [address] [place] Glucose [Mass/Vol] 96 mg/dL Normal 74-99 [facility] Comment on above: Order Comment: Specleatha king Type: BLOOD SPECIMEN Ordering Facility: [facility] Address: [address] [place] [address] Result Comment: The [place] [employer] (ADA) provides guidance for cutoff values for fasting glucose and random glucose. The ADA defines fasting as no caloric intake for at least 8 hours. Fasting plasma glucose results between 100 to 125 mg/dL indicate increased risk for diabetes (prediabetes). Fasting plasma glucose results greater than or equal to 126 mg/dL meet the criteria for diagnosis of diabetes. In the absence of unequivocal hyperglycemia, results should be confirmed by repeat testing. In a patient with classic symptoms of hyperglycemia or hyperglycemic crisis, random plasma glucose results greater than or equal to 200 mg/dL meet the criteria for diagnosis of diabetes. Reference: Standards of Medical Care in Diabetes 2016, [place] [employer]. Diabetes Care. 2016.39(Suppl 1). Performed By: #### 3 016-3, 42106-3, LIPNF #### [facility] CLIA [id number] [address] [place] [address] [place] Potassium [Moles/Vol] 4.8 mmol/L Normal 3.7-5.1 [facility] Comment on above: Order Comment: Masha king Type: BLOOD SPECIMEN Ordering Facility: [facility] Address: [address] [place] [address] Performed By: #### 3 016-3, 04062-9, LIPNF #### [facility] CLIA [id number] [address] [place] [address] [place] Protein [Mass/Vol] 6.8 g/dL Normal 6.3-8.0 [facility] Comment on above: Order Comment: Speci men Type: BLOOD SPECIMEN Ordering Facility: [facility] Address: [address] [place] [address] Performed By: #### 3 016-3, 18367-2, LIPNF #### [facility] CLIA [id number] [address] [place] [address] [place] Sodium [Moles/Vol] 141 mmol/L Normal 136-144 [facility] Comment on above: Order Comment: Speci men Type: BLOOD SPECIMEN Ordering Facility: [facility] Address: [address] [place] [address] Performed By: #### 3 016-3, 34362-2, LIPNF #### [facility] CLIA [id number] [address] [place] [address] [place] Urea nitrogen [Mass/Vol] 24 mg/dL High 7-21 [facility] Comment on above: Order Comment: Speci men Type: BLOOD SPECIMEN Ordering Facility: [facility] Address: [address] [place] [address] Performed By: #### 3 016-3, 80297-9, LIPNF #### [facility] CLIA [id number] [address] [place] [address] [place] HCV Ab Ser Qlon 03-27-2025 HCV Ab Ql (S) Negative Normal Negative [facility] Comment on above: Order Comment: Speci men Type: BLOOD SPECIMEN Ordering Facility: [facility] Address: [address] [place] [address] Result Comment: The result suggests no evidence of infection with Hepatitis C virus. Should recent infection be suspected, repeat testing may be considered 4-6 weeks after this draw. Performed By: #### 1 6128-1 #### [facility] CLIA [id number] [address] [place] [address] LIPID PANEL, NONFASTINGon Cholesterol [Mass/Vol] 146 mg/dL Normal <200 [facility] Comment on above: Order Comment: Masha christine Type: BLOOD SPECIMEN Ordering Facility: [facility] Address: [address] [place] [address] Result Comment: <200 mg/dL, Desirable 200-239 mg/dL, Borderline high >239 mg/dL, High Performed By: #### 3 016-3, 29728-1, LIPNF #### [facility] CLIA [id number] [address] [place] [address] STATES [facility] HDL CHOLESTEROL, NF 66 mg/dL Normal >39 [facility] Comment on above: Order Comment: Masha king Type: BLOOD SPECIMEN Ordering Facility: [facility] Address: [address] [place] [address] Result Comment: 40-5 9 mg/dL, Acceptable >59 mg/dL, High: Negative risk factor for coronary heart disease <40 mg/dL, Low: Positive risk factor for coronary heart disease Performed By: #### 3 016-3, 89332-9, LIPNF #### [facility] CLIA [id number] [address] [place] [address] LDL CHOLESTEROL CALCULATED, NF 59 mg/dL Normal <100 [facility] Comment on above: Order Comment: Speci men Type: BLOOD SPECIMEN Ordering Facility: [facility] Address: [address] [place] [address] Result Comment: <100 mg/dL, Optimal 100-129 mg/dL, Near optimal/above optimal 130-159 mg/dL, Borderline high 160-189 mg/dL, High >189 mg/dL, Very high Secondary prevention optimal LDL Cholesterol levels are recommended to be <70 mg/dL LDL cholesterol is calculated using the Matthews-NIH equation. Performed By: #### 3 016-3, 27593-5, LIPNF #### [facility] CLIA [id number] [address] [place] [address] [place] LDL/HDL RATIO, NF 0.89 mg/dL Normal <2.54 [facility] Comment on above: Order Comment: Masha king Type: BLOOD SPECIMEN Ordering Facility: [facility] Address: [address] [place] [address] Result Comment: Keo solis: 1. National Cholesterol Education Program ATP III Guideline At-A-Glance Quick Desk Reference: National Heart, Lung, and Blood Tryon. National Institutes of Health. 2001: NIH Publication No. 01-3305. 2. An International Atherosclerosis Society position paper: global recommendations for the management of dyslipidemia: executive summary, Atherosclerosis. 2014: 232(2):410-413. Performed By: #### 3 016-3, 03577-7, LIPNF #### [facility] CLIA [id number] [address] [place] [address] NON HDL CHOL, NF 80 mg/dL Normal <130 [facility] Comment on above: Order Comment: Masha king Type: BLOOD SPECIMEN Ordering Facility: [facility] Address: [address] [place] [address] Result Comment: <130 mg/dL, Optimal 130-159 mg/dL, Near optimal/above optimal 160-189 mg/dL, Borderline high 190-219 mg/dL, High >219 mg/dL, Very high Secondary prevention optimal non HDL Cholesterol levels are recommended to be <100 mg/dL Performed By: #### 3 016-3, 44513-1, LIPNF #### [facility] CLIA [id number] [address] [place] [address] T CHOL/HDL RATIO NF 2.21 mg/dL Normal <5.10 [facility] Comment on above: Order Comment: Masha king Type: BLOOD SPECIMEN Ordering Facility: [facility] Address: [address] [place] [address] Performed By: #### 3 016-3, 23905-4, LIPNF #### [facility] CLIA [id number] [address] [place] [address] [place] TRIGLYCERIDES, NF 122 mg/dL Normal <150 [facility] Comment on above: Order Comment: Speci men Type: BLOOD SPECIMEN Ordering Facility: [facility] Address: [address] [place] [address] Result Comment: <150 mg/dL, Normal 150-199 mg/dL, Borderline high 200-499 mg/dL, High >499 mg/dL, Very high Performed By: #### 3 016-3, 34001-4, LIPNF #### [facility] CLIA [id number] [address] [place] [address] [place] VLDL CHOLESTEROL, NF 18 mg/dL Normal <30 [facility] Comment on above: Order Comment: Speci men Type: BLOOD SPECIMEN Ordering Facility: [facility] Address: [address] [place] [address] Performed By: #### 3 016-3, 35405-8, LIPNF #### [facility] CLIA [id number] [address] [place] [address] [place] TSH SerPl-aCncon 03-27-2025 TSH Qn 1.450 m[IU]/L Normal 0.270-4.200 [facility] Comment on above: Order Comment: Speci men Type: BLOOD SPECIMEN Ordering Facility: [facility] Address: [address] [place] [address] Performed By: #### 3 016-3, 21775-6, LIPNF #### [facility] CLIA [id number] [address] [place] [address] [place] Otheron 09-25-2020 COVID-19 PCR, NASOPHARYNX Not Detected Not Detected [facility] Hematologyon 09-21-2020 Hematocrit (Bld) [Volume fraction] 43.6 % 33 - 47 % [facility] Hemoglobin (Bld) [Mass/Vol] 14.5 g/dL 11.0 - 16.0 g/dL [facility] MCH (RBC) [Entitic mass] 33.3 pg High 27. 0 - 31.0 pg [facility] MCV (RBC) [Entitic vol] 100.2 fL High 80.0 - 100.0 fL [facility] Platelets (Bld) [#/Vol] 183 10*3/uL 130 - 400 x10-3/uL [facility] RBC (Bld) [#/Vol] 4.35 10*6/uL 3.70 - 5.3 0 x10-6/uL [facility] WBC (Bld) [#/Vol] 4.5 10*3/uL 4.0 - 10.0 x10-3/uL [facility] Metabolic Panelon 09-21-2020 Albumin [Mass/Vol] 3.8 g/dL 3.4 - 5.0 g/dL [facility] ALP [Catalytic activity/Vol] 79 U/L 45 - 117 IU/L [facility] ALT [Catalytic activity/Vol] 22 U/L 12 - 78 IU/L [facility] Anion gap [Moles/Vol] 4 units Low 5 - 15 units [facility] AST [Catalytic activity/Vol] 21 U/L 15 - 37 IU/L [facility] Bilirubin [Mass/Vol] 0.77 mg/dL 0.20 - 1.00 mg/dL [facility] Calcium [Mass/Vol] 9.2 mg/dL 8.5 - 10. 1 mg/dL [facility] Chloride [Moles/Vol] 105 mmol/L 98 - 10 7 mmol/L [facility] CO2 [Moles/Vol] 30 mmol/L 21 - 32 mmol/L [facility] Creatinine [Mass/Vol] 1.0 mg/dL 0.5 - 1.0 mg/dL [facility] Glucose [Mass/Vol] 84 mg/dL 74 - 106 mg/dL [facility] Potassium [Moles/Vol] 4.1 mmol/L 3.5 - 5.1 mmol/L [facility] Protein [Mass/Vol] 6.8 g/dL 6.4 - 8.2 g/dL [facility] Sodium [Moles/Vol] 139 mmol/L 136 - 145 mmol/L [facility] Urea nitrogen [Mass/Vol] 28 mg/dL High 7 - 18 mg/d L [facility] Otheron 09-21-2020 [employer] Marked SINUS BRADYCARDIA BORDERLINE ECG [facility] ABO/Rh Positive [facility] Albumin/Globulin [Mass ratio] 1.2 {ratio} 1.0 - 2.2 [facility] GFR/1.73 sq M.predicted MDRD (S/P/Bld) [Vol rate/Area] 54.49 mL/mn/1.73m2 Abnormal >60.00 mL/mn/1.73m2 [facility] Globulin (S) [Mass/Vol] 3.1 g/dL 2.5 - 4.5 g/dL [facility] Erythrocyte distribution width (RBC) [Ratio] 12.0 % Low 12.8 - 16.4 % [facility] MCHC (RBC) [Mass/Vol] 33.3 g/dL 32.0 - 36.0 g/dL [facility] Platelet mean volume (Bld) [Entitic vol] 10.8 fL High 7.4 - 10.4 fL [facility] Otheron 03-09-2020 [facility] DEPARTMENT OF PATHOLOGY SURGICAL PATHOLOGY REPORT [id number] Submitting Physician: MELISSA GREEN MD Procedure Date: 03/05/2020 Received: 03/08/2020 Reported: 03/09/2020 11:00 SPECIMEN(S) RECEIVED A:Small bowel, biopsy B:Gastric biopsy C:Distal esophagus, biopsy D:Mid esophagus, biopsy FINAL DIAGNOSIS RECEIVED FROM [facility] A. SMALL BOWEL BIOPSY: - FRAGMENTS OF UNREMARKABLE SMALL INTESTINE WITH NO EPITHELIAL LYMPHOCYTOSIS OR VILLOUS ATROPHY NOTED. -SEPARATE FRAGMENTS OF GASTRIC MUCOSA SHOWING CHRONIC INFLAMMATION WITH NO MICROORGANISMS SEEN. B. GASTRIC BIOPSY: - CHRONIC GASTRITIS WITH NO MICROORGANISMS SEEN. C. DISTAL ESOPHAGUS BIOPSY:- SQUAMOUS MUCOSA SHOWING MILD CONGESTION. - NO COLUMNAR MUCOSA OR TISSUE EOSINOPHILIA. D. MID ESOPHAGUS BIOPSY: - SQUAMOUS MUCOSA SHOWING MILD CHRONIC INFLAMMATION. - NO COLUMNAR MUCOSA OR TISSUE EOSINOPHILIA. CONSTANTINE/augustin 03/09/2020 CONSTANTINE/mary 03/09/2020 10:01 Lowell Olivier M.D. (Electronic Signature) MICROSCOPIC DESCRIPTION Performed. CLINICAL HISTORY Epigastric abdominal pain. Dysphagia. GROSS DESCRIPTION A. Received in formalin from [place] labeled with the patient's name, ) and small bowel is a 0.5 cm aggregate of figueroa soft tissue which is entirely submitted in a single cassette. B. Received in formalin from [place] labeled with the patient's name, medical record number and gastric biopsy is a 0.2 cm figueroa soft tissue fragment which is entirely submitted in a single cassette. C. Received in formalin from [place] labeled with the patient's name, medical record number and distal esophagus; rule out EOE are two 0.1 cm figueroa soft tissue fragments which are entirely submitted in a single cassette. D. Received in formalin from [place] labeled with the patient's name, medical record number and mid esophagus; rule out EOE are two 0.1 to 0.2 cm figueroa soft tissue fragments which are entirely submitted in a single cassette. HB/db 03/08/2020 Diagnostic interpretation performed at [facility], [address], [place] [address]. CLIA Number: [id number] [facility] SURGICAL PATHOLOGYon 020 SURGICAL PATHOLOGY [facility] DEPARTMENT OF PATHOLOGY SURGICAL PATHOLOGY REPORT [id number] Submitting Physician: MELISSA GREEN MD Procedure Date: 03/05/2020 Received: 03/08/2020 Reported: 03/09/2020 11:00 SPECIMEN(S) RECEIVED A:Small bowel, biopsy B:Gastric biopsy C:Distal esophagus, biopsy D:Mid esophagus, biopsy FINAL DIAGNOSIS RECEIVED FROM [facility] A. SMALL BOWEL BIOPSY: - FRAGMENTS OF UNREMARKABLE SMALL INTESTINE WITH NO EPITHELIAL LYMPHOCYTOSIS OR VILLOUS ATROPHY NOTED. -SEPARATE FRAGMENTS OF GASTRIC MUCOSA SHOWING CHRONIC INFLAMMATION WITH NO MICROORGANISMS SEEN. B. GASTRIC BIOPSY: - CHRONIC GASTRITIS WITH NO MICROORGANISMS SEEN. C. DISTAL ESOPHAGUS BIOPSY:- SQUAMOUS MUCOSA SHOWING MILD CONGESTION. - NO COLUMNAR MUCOSA OR TISSUE EOSINOPHILIA. D. MID ESOPHAGUS BIOPSY: - SQUAMOUS MUCOSA SHOWING MILD CHRONIC INFLAMMATION. - NO COLUMNAR MUCOSA OR TISSUE EOSINOPHILIA. PAB/augustin 03/09/2020 PAB/pa 03/09/2020 10:01 Lowell Olivier M.D. (Electronic Signature) MICROSCOPIC DESCRIPTION Performed. CLINICAL HISTORY Epigastric abdominal pain. Dysphagia. GROSS DESCRIPTION A. Received in formalin from [place] labeled with the patient's name, ) and small bowel is a 0.5 cm aggregate of figueroa soft tissue which is entirely submitted in a single cassette. B. Received in formalin from [place] labeled with the patient's name, medical record number and gastric biopsy is a 0.2 cm figueroa soft tissue fragment which is entirely submitted in a single cassette. C. Received in formalin from [place] labeled with the patient's name, medical record number and distal esophagus; rule out EOE are two 0.1 cm figueroa soft tissue fragments which are entirely submitted in a single cassette. D. Received in formalin from [place] labeled with the patient's name, medical record number and mid esophagus; rule out EOE are two 0.1 to 0.2 cm figueroa soft tissue fragments which are entirely submitted in a single cassette. HB/db 03/08/2020 Diagnostic interpretation performed at [facility], [address] [facility], [place] [address]. CLIA Number: [id number] Normal [facility] Vital Signs Date Time Vital Sign Value Performing Clinician Faci lity 04-20-2025 16:00-0400 Heart rate 47 /min Dr. Elizabeth Frye MD Work Phone: 6(692)[phone] [place] [address] 04-20-2025 16:00-0400 SaO2% (BldA) [Mass fraction] 97 % Dr. Elizabeth Frye MD Work Phone: 3(458)[phone] [place] [address] 04-20-2025 15:04-0400 Body temperature 97.7 [degF] Dr. Elizabeth Frye MD Work Phone: 9(066)085-169401 [place] [address] 04-20-2025 15:04-0400 Diastolic blood pressure 62 mm[Hg] Dr. Elizabeth Frye MD Work Phone: 2(706)095-139701 [place] [address] 04-20-2025 15:04-0400 Respiratory rate 14 /min Dr. Elizabeth Frye MD Work Phone: 5(667)437-777201 [place] [address] 04-20-2025 15:04-0400 Systolic blood pressure 158 mm[Hg] Dr. Elizabeth Frye MD Work Phone: 4(339)312-149601 [place] [address] 04-20-2025 10:21-0400 Body height 162.[address] Elizabeth Frye MD Work Phone: 5(851)223-275401 [place] [address] 04-20-2025 10:21-0400 Body mass index (BMI) [Ratio] 38.2 kg/m2 Dr. Elizabeth Frye MD Work Phone: 0(200)386-759001 [place] [address] 04-20-2025 10:21-0400 Body weight [address] Elizabeth Frye MD Work Phone: 2(033)111-816501 [place] [address] 03-27-2025 12:55-0400 Body height 160 cm Shama Cuellar WAITER/WAITRESS INFORMAL.DIRECTOR OF PRECLINICAL RESEARCH Work Phone: [facility] 03-27-2025 12:55-0400 Body mass index (BMI) [Ratio] 39.14 kg/m2 Shama Cuellar WAITER/WAITRESS INFORMAL.DIRECTOR OF PRECLINICAL RESEARCH Work Phone: [facility] 03-27-2025 12:55-0400 Body weight 100.2 kg Shama Cuellar WAITER/WAITRESS INFORMAL.DIRECTOR OF PRECLINICAL RESEARCH Work Phone: [facility] 03-27-2025 12:55-0400 Diastolic blood pressure 68 mm[Hg] Shama Cuellar WAITER/WAITRESS INFORMAL.DIRECTOR OF PRECLINICAL RESEARCH Work Phone: [facility] 03-27-2025 12:55-0400 Heart rate 98 /min Shama Cuellar WAITER/WAITRESS INFORMAL.DIRECTOR OF PRECLINICAL RESEARCH Work Phone: [facility] 03-27-2025 12:55-0400 Systolic blood pressure 112 mm[Hg] Shama Cuellar WAITER/WAITRESS INFORMAL.DIRECTOR OF PRECLINICAL RESEARCH Work Phone: [facility] Encounters Encounter Date Encounter Type Care Provider Facility Start: 07-13-2025 ambulatory [facility] Facility: [facility] Start: 04-20-2025 Non-patient / Non-visit Dr. Ramón Henriquez DO -[facility] Work Phone: Start: 04-20-2025 Evaluation and manag ement of inpatient Dr. Erich Henriquez DO -[facility] Work Phone: Start: 04-20-[address] Elizabeth Frye MD Work Phone: -[facility] Start: 04-14-[address] Li Carrasco MD -Radiology [facility] Work Phone: Start: 04-14-2025 ambulatory Elizabeth Frye [facility] y:[facility] Start: 03-30-2025 End: 03-30-2025 ambulatory [facility] Facility:[facility] Start: 03-27-2025 End: 03-27-2025 ambulatory [facility] Facility:[facility] Start: 03-27-2025 End: 03-27-2025 Patient encounter procedure Shama Cuellar APRN.DIRECTOR OF PRECLINICAL RESEARCH Work Phone: [facility] Comment on above: Primary hypertension (Primary Dx); Acquired hypothyroidism; Other hyperlipidemia; Gastroesophageal reflux disease without esophagitis; Screening for depression; Encounter for screening examination for other mental health and behavioral disorders; Special screening examination for viral disease; Encounter for immunization; Asymptomatic menopause; Total knee replacement status, right; Chronic pain of both shoulders; Chronic neck pain; Chronic pain of left knee; Routine eye exam; History of throat cancer; Breast cancer screening by mammogram Start: 03-27-2025 End: 03-27-2025 ambulatory SHAMA CUELLAR Facility:[facility] Start: 03-27-2025 End: 03-27-2025 Ophthalmic examination and evaluation Shama Cuellar APRN.DIRECTOR OF PRECLINICAL RESEARCH Work Phone: [facility] Start: 09-21-2020 End: 09-24-2020 Subsequent hospital visit by physician Ita Smith Work Phone: [facility] Comment on above: SHOULDER ARTHROPLAST Y RIGHT Start: 03-05-2020 End: 03-05-2020 Subsequent hospital visit by physician Melissa Green Work Phone: [facility] Comment on above: R13.14 Start: 03-05-2020 End: 03-05-2020 Subsequent hospital visit by physician Lab Comment on above: Dysphagia, pharyngoe sophageal phase [R13.14] Start: 02-24-2020 End: 02-24-2020 Subsequent hospital visit by physician Melissa Green Work Phone: [facility] Comment on above: r12, r13.14, r11.0, r10.13 Procedures Date Procedure Procedure Detail Performing Clinician Start: 04-20-2025 X-ray of chest, PA a nd lateral views Dr. Elizabeth Frye MD Work Phone: Start: 04-20-[address] Elizabeth Frye MD Work Phone: Start: 04-14-2025 X-ray of chest, PA a nd lateral views Dr. Elizabeth Frye MD Work Phone: Start: 03-27-2025 Adult depression scr eening assessment Shmaa Cuellar [place].DIRECTOR OF PRECLINICAL RESEARCH Work Phone: Start: 09-24-2020 COVID-19 PCR, NASOPH ARYNX (BIO-REF) [facility] [place] Work Phone: Start: 09-21-2020 Antibody screen [facility] Start: 09-21-2020 ABO AND RH ONLY [facility] [place] Work Phone: Start: 09-21-2020 Antibody screen [facility] [place] Work Phone: Start: 09-21-2020 CBC [facility] Work Phone: Start: 09-21-2020 Comprehensive metabo lic 2000 panel [facility] [place] Work Phone: Start: 09-21-2020 MRSA CULTURE SCREEN Dionna n [facility] [place] Work Phone: Start: 09-21-2020 Ecg routine ecg w/le ast 12 lds w/i&r [facility] [place] Work Phone: Start: 03-05-2020 SURGICAL PATHOLOGY Matthew Green Work Phone: Plan of Treatment Date Care Activity Detail Author Start: 12-26-2033 Urine microalbumin profile DTaP,Tdap,Td Vaccine (3 - Td or Tdap) [facility] Start: 03-27-2026 Annual PCP Team Health Management Consultant marianna Disease Visit Annual PCP Team Chronic Disease Visit [facility] Start: 03-27-2026 Anxiety Screening Anxiety Screening [facility] Start: 03-27-2026 Depression Screening Depression Scre ening [facility] Start: 10-12-2025 End: 10-12-2025 Patient encounter procedure 10/12/2025 2:00 PM EST Office Visit [facility] [address] [place] [address] Elizabeth Frye MD [address] [place] [address] 6 month f/u - new to [facility] Comment on above: 6 month f/u - new to [facility] Start: 06-29-2025 End: 06-29-2025 Patient encounter procedure 06/29/2025 11:15 AM EDT Appointment Radiology [address] [place] [id number] Asymptomatic menopause [Z78.0] Radiology Comment on above: Asymptomatic menopau se [Z78.0] Start: 05-18-2025 Covid-19 Vaccine ( season) Covid-19 Vaccine () [facility] Comment on above: Postponed from 05/18 (Declined at this time) Start: 05-18-2025 Influenza vaccination Influenza Vacc ine (#1) [facility] Start: 04-27-2025 End: 04-27-2025 Patient encounter procedure 04/27/2025 11:10 AM EDT Appointment Mammogram [address] [place] [address] Breast cancer screening by mammogram [Z12.31] Mammogram Comment on above: Breast cancer screen ing by mammogram [Z12.31] Start: 04-20-2025 Hospital admission, emergency, from emergency room, medical nature [facility] Start: 04-20-2025 Verification routine [facility] Start: 04-20-2025 Admission procedure [facility] Start: 04-20-2025 [facility] Start: 03-27-2025 End: 06-26-2025 Comprehensive metabolic 2000 panel - Serum or Plasma [facility] Comment on above: Expected: 03/27/2025 , Expires: 06/26/2025 Start: 03-27-2025 End: 06-26-2025 Hepatitis C virus Ab [Presence] in Serum [facility] Work Phone: Comment on above: Expected: 03/27/2025 , Expires: 06/26/2025 Start: 03-27-2025 End: 06-26-2025 Lipid 1996 panel - Serum or Plasma LIPID PANEL, FASTING Lab Routine Acquired hypothyroidism Other hyperlipidemia Primary hypertension Expected: 03/27/2025, Expires: 06/26/2025 [facility] Comment on above: Expected: 03/27/2025 , Expires: 06/26/2025 Start: 03-27-2025 End: 06-26-2025 LIPID PANEL, NONFASTING [facility] Comment on above: Expected: 03/27/2025 , Expires: 06/26/2025 Start: 03-27-2025 End: 06-26-2025 Thyrotropin [Units/volume] in Serum or Plasma [facility] Comment on above: Expected: 03/27/2025 , Expires: 06/26/2025 Start: 09-21-2023 Diabetes Screening Diabetes Screenin g [facility] Start: 2021 RSV Vaccine (1 - 1-d ose 75+ series) RSV Vaccine (1 - 1-dose 75+ series) [facility] Start: 01-20-2013 Shingrix Vaccine (2 of 3) Shingrix Vaccine (2 of 3) [facility] Start: 2011 Screening for osteoporosis Bone Density Screening [facility] Start: 07-18-2011 Medicare Annual Wellness Visit Medicare Annual Wellness Visit [facility] End: 04-26-2026 BD DXA TRABECULAR BONE SCORE (TBS) BD DXA TRABECULAR BONE SCORE (TBS) Radiology Routine Asymptomatic menopause 1 Occurrences starting 03/27/2025 until 04/26/2026 [facility] Comment on above: 1 Occurrences starti ng 03/27/2025 until 04/26/2026 End: 04-26-2026 DBT Breast - bilateral screening NELSON SCREENING W PATSY Radiology Routine Breast cancer screening by mammogram 1 Occurrences starting 03/27/2025 until 04/26/2026 [facility] Comment on above: 1 Occurrences starti ng 03/27/2025 until 04/26/2026 End: 04-26-2026 DXA Skeletal system.axial Views for bone density DXA-AXIAL SKELETON Radiology Routine Asymptomatic menopause 1 Occurrences starting 03/27/2025 until 04/26/2026 [facility] Comment on above: 1 Occurrences starti ng 03/27/2025 until 04/26/2026 Immunizations Immunization Date Immunization Notes Care Provider Obed khoury 06-06-2024 influenza virus vacc ine, unspecified formulation Shama Cuellar APRN.DIRECTOR OF PRECLINICAL RESEARCH Work Phone: [facility] Payers Date Payer Category Payer Self-pay 2023 Private Health Insurance [employer] S UPPLEMENT [id number] 2023 Medicare [id number] 2019 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 [id number] 2019- PPO [id number] 2012 Private Health Insurance [facility] [id number] 2011 Medicare MEDICARE [id number] 2011 Medicare [id number] Unknown [id number] Unknown [id number] Social History Date Type Detail Facility Tobacco smoking stat us NHIS Unknown if ever smoked [facility] Start: 1945 Sex Assigned At Not on file [facility] Start: 03-27-2025 End: 04-20-2025 Tobacco smoking status NHIS Ex-smoker [facility] Start: 09-17-1988 History of tobacco use Current smoke r [facility] Start: 09-17-1988 History of tobacco use Cigarette Smo ker [facility] Start: 03-27-2025 Cigarettes smoked current (pack per day) - Reported 1 [facility] Start: 03-27-2025 Tobacco use and exposure Smokeless tobacco non-user [facility] Start: 03-27-2025 Alcoholic beverage intake Lifetime non-drinker (finding) [facility] Start: 03-27-2025 Tobacco use panel [facility] Adult Depression Screening Assessment 0 [facility] Start: 1945 Sex Assigned At Female [facility] Mental Status Date Assessment Result Facility 04-20-2025 Cognitive function Voice/Name [facility] Work Phone: History and physical note 04-20-2025 Note Date & Type Note Facility 04-20-2025 History and physi jack note [facility] Radiology Diagnostic study note 04-20-2025 Note Date & Type Note Facility 04-20-2025 Radiology Diagnostic study note [facility] Imaging Services [address] [place] [address] Chest PA and Lateral MR#: [id number] Acct: [id number] Name: ANNETTA MURDOCK Rep #: [id number] : 1945 F 79 From: Gentry Pittman MD PCP: Dr. Elizabeth Frye MD Status: RE G ER Study:Chest PA and Lateral Date of Exam: 04/20/25 Exam# [id number] Ordering Dr: Ramón Muñoz MD PROCEDURE: CHEST PA AND LATERAL 04/20/2025 REASON FOR EXAM: CHEST PAIN TECHNIQUE: CHEST PA AND LATERAL COMPARISON: April 14, 2025 FINDINGS: Hardware: EKG leads are present. Heart: Normal size. Aortic knob is atherosclerotic. Mediastinum: Normal Lungs: Clear. No pneumothorax or pleural effusion. Bones: Degenerative changes are identified within the thoracic spine. Advanced degenerative change with loose bodies at the proximal left humerus. Surgical clips overlying the thyroid gland. RAD/Chest PA and Lateral IMPRESSION: No acute cardiopulmonary process. Reading Location: [id number] CC: Dr. Maile Muñoz MD; Dr. Elizabeth Frye MD ~ Patrol Man: Signed [facility] History of Present illness Narrative 03-27-2025 Shama Cuellar APRN.DIRECTOR OF PRECLINICAL RESEARCH - 03/27/2025 1:00 PM EDT Note Date & Type Note Facility 03-27-2025 History of Presen t illness Narrative Subjective Patient ID: Annetta is a 79 year old female who presents for Establish Care. HPI Annetta Murdock is a 79-year-old female with a history of anxiety, depression, HTN, hyperlipidemia, and throat cancer, presenting for an initial visit and evaluation of left knee pain. Presents today to [facility] care with Elizabeth Frye MD See scanned documents, prior physicians. Left Knee Pain: - Left knee pain, described as locking up after sitting for a while. - Pain alleviated by standing for a few seconds before moving the leg. - Recent steroid injection provided temporary relief. - No issues with the right knee, which had a knee replacement in 2008. Neck and Back Pain: - Recent onset of neck and back pain. - Previously managed shoulder and knee pain with a toy painter in [place]. Throat Cancer: - Diagnosed in 2016; underwent lymph node removal, partial tonsillectomy, 35 radiation treatments, and 2 chemotherapy sessions. - Last ENT visit was a month before moving; throat was checked and appeared normal. - Has been cancer-free since 2021. - Reports recent allergy and sinus-like symptoms. Anxiety: - Managed with paroxetine 20 mg daily. - Describes herself as a worrier. - Also taking doxepin 5 mg at night for sleep. Hypertension: - Managed with medication; last blood work was approximately 3 months ago. HTN: No reported headache, chest pain, palpitations, dyspnea, and peripheral edema. Last 3 Encounter BP Readings: Date: BP: 03/27/2025 112/68 Hyperlipidemia: Ms. Murdock doing well on current therapy. - Managed with medication; last blood work was approximately 3 months ago. Family History: - Mother had diabetes, at 84. - Father had heart disease, at 73. Social History: - Former smoker, quit in 1988 after smoking 1-2 packs per day for approximately 20 years. - Recently moved back to the area to be closer to family. - for 13 years, together for 16 years. - is on Annetta's medical advanced directive Objective BP 112/68 Pulse 98 Ht 160 cm (5' 2.99) Wt 100.2 kg (220 lb 14.4 oz) BMI 39.14 kg/m Physical Exam Vitals and nursing note reviewed. Constitutional: Appearance: Normal appearance. HENT: Head: Normocephalic and atraumatic. Eyes: Conjunctiva/sclera: Conjunctivae normal. Neck: Thyroid: No thyromegaly. Vascular: No carotid bruit. Comments: well healed surgical site right side of neck Cardiovascular: Rate and Rhythm: Normal rate and regular rhythm. Heart sounds: Normal heart sounds. Pulmonary: Effort: Pulmonary effort is normal. Breath sounds: Normal breath sounds. Abdominal: General: Bowel sounds are normal. Palpations: Abdomen is soft. Skin: General: Skin is warm and dry. Neurological: General: No focal deficit present. Mental Status: She is alert and oriented to person, place, and time. 1. Primary hypertension (I10) - Managed with current medication regimen. - Ordered lab work to monitor blood pressure control. Stable on current management continue unchanged. 2. Acquired hypothyroidism (E03.9) Stable on current management continue unchanged. - Ordered lab work to assess thyroid function. 3. Other hyperlipidemia (E78.49) Stable on current management continue unchanged. - Ordered lipid panel to monitor cholesterol levels. 4. Gastroesophageal reflux disease without esophagitis (K21.9) Stable on current management continue unchanged. - No current issues reported. 5. Screening for depression (Z13.31) 6. Encounter for screening examination for other mental health and behavioral disorders (Z13.39) - is currently taking paroxetine 20 mg daily for anxiety. Stable on current management continue unchanged. 7. Special screening examination for viral disease (Z11.59) - Ordered hepatitis C screening. 8. Encounter for immunization (Z23) - Discussed COVID booster; to check current status. - Plans to receive flu shot in May. 9. Asymptomatic menopause (Z78.0) BMD recommended if not completed in last 2-4 years. - No current issues reported. 10. 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 11. Chronic pain of both shoulders (M25.511) - Discussed potential referral to pain management if needed. 12. Chronic neck pain (M54.2) - Discussed potential referral to pain management if needed. 13. Chronic pain of left knee (M25.562) - Recent steroid injection provided temporary relief. - Referred to orthopedics for further evaluation and management. 14. Routine eye exam (Z01.00) - Discussed scheduling with local casino dealer. May see Dr. Cavazos. 15. History of throat cancer (Z85.819) - Diagnosed in 2016, currently cancer-free since 2021. - Referred to ENT for follow-up. Would like to see Dr. Carrasco. 16. Breast cancer screening by mammogram (Z12.31) Endorse routine BSE. - No current issues reported. Shama Cuellar APRN.CNS Medical Decision Making: Problems: Moderate: 2+ stable chronic illnesses Data: Unique test(s) ordered: 3+ Risk: Moderate: Drug management Medical Decision Making Level: 4 - Moderate documented in this encounter [facility] Progress note 03-27-2025 Note Date & Type Note Facility 03-27-2025 Note HNO ID: [id number] Author: SHAMA CUELLAR APRN.DIRECTOR OF PRECLINICAL RESEARCH Service: ? Author Type: Nurse Specialist Type: Progress Notes Filed: 03/27/2025 13:54 Note Text: Subjective Patient ID: Annetta is a 79 year old female who presents for Establish Care. HPI Annetta Murdock is a 79-year-old female with a history of anxiety, depression, HTN, hyperlipidemia, and throat cancer, presenting for an initial visit and evaluation of left knee pain. Presents today to establish care with Elizabeth Frye MD See scanned documents, prior physicians. Left Knee Pain: - Left knee pain, described as locking up after sitting for a while. - Pain alleviated by standing for a few seconds before moving the leg. - Recent steroid injection provided temporary relief. - No issues with the right knee, which had a knee replacement in 2008. Neck and Back Pain: - Recent onset of neck and back pain. - Previously managed shoulder and knee pain with a toy painter in [place]. Throat Cancer: - Diagnosed in 2016; underwent lymph node removal, partial tonsillectomy, 35 radiation treatments, and 2 chemotherapy sessions. - Last ENT visit was a month before moving; throat was checked and appeared normal. - Has been cancer-free since 2021. - Reports recent allergy and sinus-like symptoms. Anxiety: - Managed with paroxetine 20 mg daily. - Describes herself as a worrier. - Also taking doxepin 5 mg at night for sleep. Hypertension: - Managed with medication; last blood work was approximately 3 months ago. HTN: No reported headache, chest pain, palpitations, dyspnea, and peripheral edema. Last 3 Encounter BP Readings: Date: BP: 03/27/2025 112/68 Hyperlipidemia: Ms. Murdock doing well on current therapy. - Managed with medication; last blood work was approximately 3 months ago. Family History: - Mother had diabetes, at 84. - Father had heart disease, at 73. Social History: - Former smoker, quit in 1988 after smoking 1-2 packs per day for approximately 20 years. - Recently moved back to the area to be closer to family. - for 13 years, together for 16 years. - is on Annetta's medical advanced directive Objective BP 112/68 Pulse 98 Ht 160 cm (5' 2.99) Wt 100.2 kg (220 lb 14.4 oz) BMI 39.14 kg/m? Physical Exam Vitals and nursing note reviewed. Constitutional: Appearance: Normal appearance. HENT: Head: Normocephalic and atraumatic. Eyes: Conjunctiva/sclera: Conjunctivae normal. Neck: Thyroid: No thyromegaly. Vascular: No carotid bruit. Comments: well healed surgical site right side of neck Cardiovascular: Rate and Rhythm: Normal rate and regular rhythm. Heart sounds: Normal heart sounds. Pulmonary: Effort: Pulmonary effort is normal. Breath sounds: Normal breath sounds. Abdominal: General: Bowel sounds are normal. Palpations: Abdomen is soft. Skin: General: Skin is warm and dry. Neurological: General: No focal deficit present. Mental Status: She is alert and oriented to person, place, and time. 1. Primary hypertension (I10) - Managed with current medication regimen. - Ordered lab work to monitor blood pressure control. Stable on current management continue unchanged. 2. Acquired hypothyroidism (E03.9) Stable on current management continue unchanged. - Ordered lab work to assess thyroid function. 3. Other hyperlipidemia (E78.49) Stable on current management continue unchanged. - Ordered lipid panel to monitor cholesterol levels. 4. Gastroesophageal reflux disease without esophagitis (K21.9) Stable on current management continue unchanged. - No current issues reported. 5. Screening for depression (Z13.31) 6. Encounter for screening examination for other mental health and behavioral disorders (Z13.39) - is currently taking paroxetine 20 mg daily for anxiety. Stable on current management continue unchanged. 7. Special screening examination for viral disease (Z11.59) - Ordered hepatitis C screening. 8. Encounter for immunization (Z23) - Discussed COVID booster; to check current status. - Plans to receive flu shot in May. 9. Asymptomatic menopause (Z78.0) BMD recommended if not completed in last 2-4 years. - No current issues reported. 10. 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 11. Chronic pain of both shoulders (M25.511) - Discussed potential referral to pain management if needed. 12. Chronic neck pain (M54.2) - Discussed potential referral to pain management if needed. 13. Chronic pain of left knee (M25.562) - Recent steroid injection provided temporary relief. - Referred to orthopedics for further evaluation and management. 14. Routine eye exam (Z01.00) - Discussed scheduling with local casino dealer. May see Dr. Cavazos. 15. History of throat cancer (Z85.819) - Diagnosed in 2016, currently cancer-free since 2021. - Referred to ENT f (more content not included)... [facility] Evaluation note Note Date & Type Note Facility Evaluation note Diagnosis Primary hypertension- Primary Unspecified essential hypertension Acquired hypothyroidism Unspecified hypothyroidism Other hyperlipidemia Gastroesophageal reflux disease without esophagitis Esophageal reflux Screening for depression Encounter for screening examination for other mental health and behavioral disorders Special screening examination for viral disease Special screening examination for unspecified viral disease Encounter for immunization Need for other specified prophylactic vaccination against single bacterial disease Asymptomatic menopause Total knee replacement status, right Chronic pain of both shoulders Pain in joint, shoulder region Chronic neck pain Cervicalgia Chronic pain of left knee Pain in joint, lower leg Routine eye exam History of throat cancer 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 Breast cancer screening by mammogram documented in this encounter [facility] Evaluation note Note Date & Type Note Facility Evaluation note Diagnosis Onset Date Resolution Chest pain acute April 20 3:59pm [facility] Work Phone: History and physical note Note Date & Type Note Facility History and physical note Note Date/Time April 20, 2025 4:06pm [facility] Medical Records Department [address] [place] [address] H&P Exam - Hospitalist 04/20/25 1602 MR#: [id number] Acct: [id number] Name: ANNETTA MURDOCK Rep #:[id number] : 1945 79 From: Erich Henriquez DO PCP: Dr. Elizabeth Frye MD Status:RE G ER Location: ED HPI - General General Date of Service: 04/20/25 Chief Complaint: Chest pain HPI Narrative ANNETTA MURDOCK, is a 79 F who presents with chest pain. Patient had 2 bouts of chest pain. The first was last night when she was sitting in her recliner she had a midsternal chest pain. Took some Tums and symptoms resolved shortly thereafter. And today she was in a waiting room for her 's doctor's appointment where she had chest pain and went across her chest. It lasted untilshe got to the emergency room. She did not take Tums at that time. By time shearrived to emergency room, her symptoms had resolved. She did not any other associated symptoms such as shortness of breath, diaphoresis, and abdominal pain. She presented to the emergency room and her workup here was unremarkable. Patient did have a stress test performed 2 years ago when she was living in [place] and that was negative. She had seen a malt house operator at that time whotold her it was due to stress and anxiety. Patient did have chest pain back in 2012 where she underwent a left heart catheterization [facility] Medical History Hypercholesteremia Hypertension History of throat cancer Home Medications ?Medication ?Instructions ?Recorded ?Last Taken ?Type Bifidobacterium infantis 4 mg 4 mg PO DAILY 08/13/13 U nknown History capsule (Align (B.infantis)) Ranitidine [Zantac] 150 mg PO BID 08/13/13 Unkno wn History acetaminophen 650 mg 650 mg PO PRN PRN Pain 08/13 Unknown History tablet,extended release (Tylenol Arthritis Pain) alprazolam 0.5 mg tablet 0.5 mg PO BID 08/13/1308/18 History aluminum hydrox-magnesium carb 254 355 ml PO 4X/DAY Unknown History mg-237.5 mg/5 mL oral suspension (Gaviscon Extra Strength) amlodipine 5 mg tablet 5 mg PO DAILY 08/13/1308/18 History calcium 500 mg (as 1 tab PO DAILY@0800 08/13/13 Unknown History carbonate)-vitamin D3 5 mcg (200 unit) tablet (Oyster Shell Calcium-Vitamin D3) lisinopril 40 mg tablet 40 mg PO DAILY 08/13/1310/30 History metoprolol succinate 25 mg 25 mg PO DAILY 08/13/1310/30 History tablet,extended release 24 hr oxybutynin chloride 10 mg 10 mg PO DAILY 08/13/13 Unkn own History tablet,extended release 24 hr (Ditropan XL) paroxetine HCl 40 mg tablet (Paxil) 40 mg PO DAILY 08/18/13 History Allergy/AdvReac Type Severity Reaction Status Date / Time Sulfa (Sulfonamide Allergy Mild Rash Verified 04/20/25 10:21 Antibiotics) Family History Other Heart disease Surgical History History of surgery on wrist Hx of lymph node excision Social History Smoking Status: Former smoker ROS ROS Narrative All review of systems were negative except as mentioned above in the history of present illness and the other review of systems. Vital Signs Vital Signs Vital Signs: 04/20/25 10:21 04/20/25 10:25 04/20/25 11:30 Temperature 36.5 C L Temperature Source Oral Pulse Rate 51 L 49 L Respiratory Rate 12 13 Respiratory Pattern Normal Blood Pressure 174/62 H 161/56 H Blood Pressure Mean 99 86 Pulse Ox 97 99 Oxygen Delivery Method Room Air 04/20/25 11:45 04/20/25 12:00 04/20/25 12:15 Temperature Temperature Source Pulse Rate 46 L 47 L 42 L Respiratory Rate 13 21 H 10 L Respiratory Pattern Blood Pressure 155/71 H 158/67 H 154/61 H Blood Pressure Mean 95 95 89 Pulse Ox 97 99 98 Oxygen Delivery Method 04/20/25 12:30 04/20/25 12:45 04/20/25 13:00 Temperature Temperature Source Pulse Rate 43 L 47 L 42 L Respiratory Rate 11 L 12 10 L Respiratory Pattern Blood Pressure 163/59 H 157/63 H 152/58 H Blood Pressure Mean 89 92 86 Pulse Ox 97 97 100 Oxygen Delivery Method 04/20/25 14:00 04/20/25 15:00 04/20/25 15:04 Temperature 36.5 C L Temperature Source Pulse Rate 47 L 47 L 47 L Respiratory Rate 14 14 Respiratory Pattern Blood Pressure 143/59 H 158/62 H 158/62 H Blood Pressure Mean 87 94 94 Pulse Ox 99 97 97 Oxygen Delivery Method Room Air Room Air Weight Weight: 101 kg Body Mass Index (BMI) 38.2 Physical Exam Narrative - Physical Exam General: Alert, Oriented x3, Cooperative HEENT: Atraumatic, PERRLA, EOMI, Normocephalic Oral: Moist Mucosa, No Gingival or Mucosal Lesions/ Ulcerations Neck: Supple, No JVD, Negative Carotid Bruits Lungs: Clear to auscultation, Normal air movement Cardiovascular: Regular rate, Normal S1, Normal S2, No murmurs Abdomen: Bowel Sounds Present, Soft, Non Tender, Non-Distended, No Hepato-splenomegaly Extremities: No clubbing, No cyanosis, No edema, Capillary Refill Less than 3 Seconds Skin: No rashes, No breakdown Musculoskeletal: No Tenderness to Palpation of Joints or Extremities. Reproducible anterior chest wall tenderness. Neurological: Moves all extremities spontaneously. Psych/Mental Status: Normal Affect, Appropriate Results Lab / Micro Data Attestation: I reviewed the patient's lab results. 04/20/25 10:25 04/20/25 10:25 Labs: Laboratory Results - last 24 hr 04/20/25 10:25: WBC 7.7, RBC 4.57, Hgb 14.8, Hct 45.8, MCV 100.2 H, MCH 32.4 H, MCHC 32.3, RDW Std Deviation 48.6 H, RDW Coeff of Awa 13.2, Plt Count 198, MPV 10.6, Immature Gran % (Auto) 0.400, Neut % (Auto) 59.5, Lymph % (Auto) 27.6, [place] % (Auto) 11.5 H, Eos % (Auto) 0.5, Baso % (Auto) 0.5, Absolute Neuts (auto) 4.6, Absolute Lymphs (auto) 2.13, Nucleated RBC % 0, Sodium 141, Potassium 4.7, Chloride 105, Carbon Dioxide 24.4, Anion Gap 11, BUN 25 H, Creatinine 0.87, Estim Creat Clear Calc 61.60, Est GFR (MDRD) Non-Af 68, BUN/Creatinine Ratio 28.7 H, Glucose 89, Calcium 9.5, Troponin T High Sens 12 04/20/25 13:11: Troponin T Hi Sens 2 Hr 11 04/20/25 15:00: Troponin T Hi Sens 4Hr 12 EKG Initial EKG: Attestation: I personally reviewed and interpreted this EKG as follows: Prior EKG tracings: available for review EKG Rhythm Intrepretation: Sinus Bradycardia Imaging Radiology Impression Chest X-Ray 04/20/25 10:50 IMPRESSION: No acute cardiopulmonary process. Reading Location: [facility] Assessment & Plan Assessment/Plan (1) Chest pain: PLAN: Atypical Workup here has been unremarkable with negative troponin series. Patient had moved down to [place] and has recently back to the area. She does have a primary care doctor but does not have an appointment set up at this point in time. Explained to she and her family that I do not feel this is actually cardiac but could be related with GI issues as she does have a history of reflux and explained that this could be esophageal spasm given the intensity of chest pain and a negative cardiac workup. I did tell she and her family that she could do this is outpatient but it may be more difficult as she is not fully established with her primary care doctor yet to have stress test performed as outpatient. After lengthy discussion she agreed brought in to have a stress test. She is requesting a chemical stress test. Will start aspirin. If stress test is negative then we will discharge patient home . PLAN: Plan Hypertension: Continue lisinopril and metoprolol Anxiety: Continue with paroxetine VTE prophylaxis: Low risk given current observation status. CODE STATUS: Addressed with the patient. Patient wishes to be full code. Charges/Coding Visit Charges Inpatient E&M: 42788 Init Hosp L2 04/20/25 1606 <Electronically signed by Erich Henriquez DO> Cosigner Signature (if applicable): CC: Dr. Erich Henriquez DO; Dr. Elizabeth Frye MD~ Signed [facility] Work Phone: Reason for referral (narrative) Note Date & Type Note Facility Reason for referral (narrative) No reason for referral information available [facility] Work Phone: Summary Purpose Family History Relationship Condition Age at Onset Recorded Date/T micheline Not Specified Cardiac disease Unknown Advance Directives Advance Directive Response Recorded Date/ Time Do you have a Healthcare Power of Plate Take Out Worker? Yes April 20, 2025 10:24am Chief Complaint and Reason for Visit Chief Complaint Admit Date Cough April 14, 2025 3:01 pm CHEST PAIN April 20, 2025 3:5 9pm CHEST PAIN April 20, 2025 4:0 2pm Reason for Visit Admit Date Chest pain April 20, 2025 3:5 9pm Additional Source Comments Source Comments (unrecognize d section and content) In the event this informatio n is protected by the Federal Confidentiality of Alcohol and Drug Abuse Patient Records regulations: The Federal rules restrict any use of the information to criminally investigate or prosecute any alcohol or drug abuse patient.[facility] event this information is protected by the Federal Confidentiality of Alcohol and Drug Abuse Patient Records regulations: The Federal rules restrict any use of the information to criminally investigate or prosecute any alcohol or drug abuse patient.[facility] the event this information is protected by the Federal Confidentiality of Alcohol and Drug Abuse Patient Records regulations: The Federal rules restrict any use of the information to criminally investigate or prosecute any alcohol or drug abuse patient.[facility] the event this information is protected by the Federal Confidentiality of Alcohol and Drug Abuse Patient Records regulations: The Federal rules restrict any use of the information to criminally investigate or prosecute any alcohol or drug abuse patient.[facility] the event this information is protected by the Federal Confidentiality of Alcohol and Drug Abuse Patient Records regulations: The Federal rules restrict any use of the information to criminally investigate or prosecute any alcohol or drug abuse patient.[facility] INFORMATION SOURCE (unrecogn ized section and content) DATE CREATED AUTHOR 04/04/2020 [facility] DATE CREATED AUTHOR AUTHOR'S ORGANIZ ATION 04/01/2025 [facility] DATE CREATED AUTHOR AUTHOR'S ORGANIZ ATION 04/16/2025 [facility] Reason for Visit (unrecogniz ed section and content) Reason Comments Establish Care Care Teams (unrecognized sec tion and content) Flue Gas Analyst Relationship Specialty Start Date End Date Elizabeth Frye MD [address] [facility] [place] [address] PCP - General Internal Medicine 03/27/25 Team Status: Active Member Role/Relationship Status Dates Dr. Elizabeth Frye MD Primary Care Provider Active Team Status: Active Member Role/Relationship Status Dates Dr. Elizabeth Frye MD Primary Care Provider Active Start: April 14, 2025 Dr. Maikel Carrasco MD Attending Provider Active Start: April 14, 2025 Dr. Maikel Carrasco MD Referring Provider Active Start: April 14, 2025 Team Status: Active Member Role/Relationship Status Dates Dr. Elizabeth Frye MD Primary Care Provider Active Start: April 20, 2025 Dr. Maile Muñoz MD Emergency Provider Active S tart: April 20, 2025 Dr. Erich Henriquez DO Admit Provider Active Star t: April 20, 2025 Dr. Erich Henriquez DO Attending Provider Active Start: April 20, 2025 Team Status: Active Member Role/Relationship Status Dates Dr. Elizabeth Frye MD Primary Care Provider Active Start: April 20, 2025 Dr. Maile Muñoz MD Emergency Provider Active S tart: April 20, 2025 Dr. Erich Henriquez DO Attending Provider Active Start: April 20, 2025 Goals (unrecognized section and content) Goals may be documented in a n alternate section FOR RECORDS PERTAINING TO PATIENTS WHO ARE OR HAVE BEEN ENROLLED IN A CHEMICAL DEPENDENCY/SUBSTANCEABUSE PROGRAM, SOME INFORMATION MAY BE OMITTED. This clinical summary was aggregated from multiple sources. Caution should be exercised in using it in the provision of clinical care. This summary normalizes information from multiple sources, and as a consequence, information in this document may materially change the coding, format and clinical context of patient data. In addition, data may be omitted in some cases. CLINICAL DECISIONS SHOULD BE BASED ON THE PRIMARY CLINICAL RECORDS. [email or web address] [facility]. provides no warranty or guarantee of the accuracy or completeness of information in this document.
--- OUTSIDE RECORDS SUMMARY | 2025-04-20 22:57 | XMS RPT_ITS | CCD ---
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 Elizabeth Frye MD Primary Care Provider Dr. Maikel Carrasco MD Attending Provider [phone] Maikel Carrasco MD Referring Provider Dr. Maile Muñoz MD Emergency Provider Unavailab Dr. Erich Ch DO Admit Provider Dr. Erich Henriquez DO Attending Provider Allergies Allergy Classification Reported Allergen(s) Allergy Type Date of Onset Reaction(s) Facility (2 sources) Sulfonamides (Antibiotic); Translations: [SULFA (SULFONAMIDE ANTIBIOTICS)] Drug Allergy 03-27-2025 [facility] (1 source) Sulfonamides (Antibiotic) Allergy to substance 04-20-2025 [facility] Medications Current Medications Medication Drug Class(es) Dates [...] 12:00am Start: 12-29-2024 take 1 tablet by zoran th once daily atorvastatin (LIPITOR) 20 mg [...] 5 mg by mouth once daily. Active Szlaoymczkkcl-Lxjotjre-Kdpnh n (MULTIVITAMIN 50 PLUS) tab (1 source) [...] Start: 03-03-2025 take 1 capsule by mo [facility] once daily omeprazole (PRILOSEC) 20 mg capsule [...] Auto (Unsp spec) [#/Vol] 2.13 10*3/uL 0.83-4.51 [facility] Absolute neutrophil countOrd ered By: Maile Muñoz on 04-20-2025 Neutrophils (Bld) [#/Vol] 4.6 10*3/uL 2.0-7.7 [facility] Anion gap in Serum or Plasma Ordered By: Maile Muñoz on 04-20-2025 Anion gap [Moles/Vol] 11 mmol/L 5-15 [facility] Automated lymphocyte count a s percentage of total leukocytesOrdered By: Maile Muñoz on 04-20-2025 Lymphocytes/100 WBC Auto (Unsp spec) 27.6 % 19-41 [facility] BUN/creatinine ratioOrdered By: Maile Muñoz on 04-20-2025 Urea nitrogen/Creatinine [Mass ratio] 28.7 mg/mg High 10-20 [facility] Basophil percentageOrdered B y: Maile Muñoz on 04-20-2025 Basophils/100 WBC (Bld) 0.5 % 0-1 [facility] Carbon dioxide, total [Moles /volume] in Central venous bloodOrdered By: Maile Muñoz on 04-20-2025 CO2 [Moles/Vol] 24.4 mmol/L 21.0-32.0 [facility] Chloride assayOrdered By: Ramón Muñoz on 04-20-2025 Chloride [Moles/Vol] 105 mmol/L 98-108 [facility] Eosinophil percentageOrdered By: Maile Muñoz on 04-20-2025 Eosinophils/100 WBC (Bld) 0.5 % 0-5 [facility] Erythrocyte distribution wid th ratioOrdered By: Maile Muñoz on 04-20-2025 Erythrocyte distribution width (RBC) [Ratio] 13.2 % 11.6-14.6 [facility] Erythrocyte distribution wid th standard deviationOrdered By: Maile Muñoz on 04-20-2025 Erythrocyte distribution width (RBC) [Ratio] 48.6 fl High 35.1-43.9 [facility] Glomerular filtration rate ( GFR) estimation/1.73 sq m using serum, plasma, or whole bOrdered By: Maile Muñoz on 04-20-2025 GFR/1.73 sq M.predicted among non-blacks MDRD (S/P/Bld) [Vol rate/Area] 68 mL/min/{1.73_m2} >60 [facility] Comment on above: mL/min/1.73m2 CKD-EP I Creatinine Equation (2020) Hematocrit Auto (Bld) [Volum e fraction]Ordered By: Maile Muñoz on 04-20-2025 Hematocrit (Bld) [Volume fraction] 45.8 % 37-47 [facility] Hemoglobin measurementOrdere d By: Maile Muñoz on 04-20-2025 Hemoglobin (Bld) [Mass/Vol] 14.8 g/dL 12.0-15.0 [facility] Immature granulocytes/100 WB C Auto (Bld)Ordered By: Maile Muñoz on 04-20-2025 Immature granulocytes/100 WBC (Bld) 0.400 % 0.0-0.9 [facility] Comment on above: IG% - Immature Granu locytes (promyelocytes, myelocytes and metamyelocytes) > 1% indicates that a LEFT SHIFT is Present. MCV (mean corpuscular volume ) determinationOrdered By: Maile Muñoz on 04-20-2025 MCV (RBC) [Entitic vol] 100.2 fL High 81-99 [facility] Mean corpuscular hemoglobin (MCH) determinationOrdered By: Maile Muñoz on 04-20-2025 MCH (RBC) [Entitic mass] 32.4 pg High 27.0-32.0 [facility] Mean corpuscular hemoglobin concentration (MCHC) determinationOrdered By: Maile Muñoz on 04-20-2025 MCHC (RBC) [Mass/Vol] 32.3 g/dL 32-36 [facility] Mean platelet volume determi nationOrdered By: Maile Muñoz on 04-20-2025 Platelet mean volume (Bld) [Entitic vol] 10.6 fL 6.2-12.0 [facility] Monocyte percentageOrdered B y: Maile Muñoz on 04-20-2025 Monocytes/100 WBC (Bld) 11.5 % High 0-10 [facility] Neutrophil percentageOrdered By: Maile Muñoz on 04-20-2025 Neutrophils/100 WBC (Bld) 59.5 % 47-70 [facility] Nucleated red blood cell per centageOrdered By: Maile Muñoz on 04-20-2025 Nucleated RBC/100 WBC (Bld) [Ratio] 0 % 0-5 [facility] Platelet countOrdered By: Ramón Muñoz on 04-20-2025 Platelets (Bld) [#/Vol] 198 10*3/uL 150-450 [facility] Potassium measurement (mass/ volume)Ordered By: Maile Muñoz on 04-20-2025 Potassium (Unsp spec) [Mass/Vol] 4.7 mmol/L 3.3-5.1 [facility] Comment on above: Hemolysis present, R esults could be affected. RBC Auto (Bld) [#/Vol]Ordere d By: Maile Muñoz on 04-20-2025 RBC (Bld) [#/Vol] 4.57 10*6/uL 4.2-5.4 [facility] Serum creatinine measurement (mass/volume)Ordered By: Maile Muñoz on 04-20-2025 Creatinine [Mass/Vol] 0.87 mg/dL 0.70-1.20 [facility] Serum glucose measurement (m ass/volume)Ordered By: Maile Muñzo on 04-20-2025 Glucose [Mass/Vol] 89 mg/dL 70-99 [facility] Serum or plasma calcium jose urement (mass/volume)Ordered By: Maile Muñoz on 04-20-2025 Calcium [Mass/Vol] 9.5 mg/dL 7.6-11.0 [facility] Serum or plasma urea nitroge n measurement (mass/volume)Ordered By: Maile Muñoz on 04-20-2025 Urea nitrogen [Mass/Vol] 25 mg/dL High 4-19 [facility] Sodium levelOrdered By: Erich Muñoz on 04-20-2025 Sodium [Moles/Vol] 141 mmol/L 133-145 [facility] Troponin T.cardiac [Mass/vol ume] in Serum or Plasma by High sensitivity methodOrdered By: Maile Muñoz on 04-20-2025 Troponin T.cardiac High sensitivity method [Mass/Vol] 11 ng/L <14 [facility] Troponin T.cardiac High sensitivity method [Mass/Vol] 12 ng/L <14 [facility] Comment on above: Hemolysis present, R esults could be affected. White blood cell (WBC) count Ordered By: Maile Muñoz on 04-20-2025 WBC (Bld) [#/Vol] 7.7 10*3/uL 4.4-11.0 [facility] Chest PA and Lateralon 04-14 Chest PA and Lateral [facility] Imaging Services [address] [place] [address] [id number] Chest PA and Lateral MR#: [id number] Acct: [id number] Name: ANNETTA MURDOCK Rep #: [id number] : 1945 F [id number] From: Jean Schwartz PCP: Dr. Elizabeth Frye MD Status: [facility] CLI Study: Chest PA and Lateral Date of Exam: 04/14/25 Exam# [id number] Ordering Dr: Maikel Carrasco MD PROCEDURE: CHEST PA AND LATERAL 04/14/2025 REASON FOR EXAM: COUGH TECHNIQUE: CHEST PA AND LATERAL COMPARISON: none FINDINGS: No focal consolidation. No pleural effusion or pneumothorax. Cardiac silhouette is within normal limits. Calcified aortic arch. No acute fractures. Right neck vesna. RAD/Chest PA and Lateral IMPRESSION: No focal consolidations. Reading Location: [facility] CC: Dr. Maikel Carrasco MD; Dr. 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 Normal [facility] Lipid 1996 panelon 5 Cholesterol [Mass/Vol] 140 mg/dL Normal <200 [facility] Comment on above: Order Comment: Masha king Type: BLOOD SPECIMEN Ordering Facility: [facility] Address: [address] [place] [address] Result Comment: <200 mg/dL, Desirable 200-239 mg/dL, Borderline high >239 mg/dL, High Performed By: #### 2 4331-1 #### [facility] CLIA [id number] [address] [place] [address] STATES [place] [facility] CLIA [id number] [address] [place] [address] Cholesterol in HDL [Mass/Vol] 65 mg/dL Normal >39 [facility] Comment on above: Order Comment: Masha king Type: BLOOD SPECIMEN Ordering Facility: [facility] Address: [address] [place] [address] Result Comment: 40-5 9 mg/dL, Acceptable >59 mg/dL, High: Negative risk factor for coronary heart disease <40 mg/dL, Low: Positive risk factor for coronary heart disease Performed By: #### 2 4331-1 #### [facility] CLIA [id number] [address] [place] [address] [place] [facility] CLIA [id number] [address] [place] [address] Cholesterol in LDL [Mass/Vol] 59 mg/dL Normal <100 [facility] Comment on above: Order Comment: Masha men Type: BLOOD SPECIMEN Ordering Facility: [facility] Address: [address] [place] [address] Result Comment: <100 mg/dL, Optimal 100-129 mg/dL, Near optimal/above optimal 130-159 mg/dL, Borderline high 160-189 mg/dL, High >189 mg/dL, Very high Secondary prevention optimal LDL Cholesterol levels are recommended to be <70 mg/dL LDL cholesterol is calculated using the Matthews-NIH equation. Performed By: #### 2 4331-1 #### [facility] CLIA [id number] [address] [place] [address] [place] [facility] CLIA [id number] [address] [place] [address] [place] Cholesterol in LDL/Cholesterol in HDL [Mass ratio] 0.91 {ratio} Normal <2.54 [facility] Comment on above: Order Comment: Speci men Type: BLOOD SPECIMEN Ordering Facility: [facility] Address: [address] [place] [address] Result Comment: Keo solis: 1. National Cholesterol Education Program ATP III Guideline At-A-Glance Quick Desk Reference: National Heart, Lung, and Blood [place]. National Institutes of Health. 2001: NIH Publication No. 01-3305. 2. An International Atherosclerosis Society position paper: global recommendations for the management of dyslipidemia: executive summary, Atherosclerosis. 2014: 232(2):410-413. Performed By: #### 2 4331-1 #### [facility] CLIA [id number] [address] [place] [address] [place] [facility] CLIA [id number] [address] [place] [address] [place] Cholesterol in VLDL [Mass/Vol] 12 mg/dL Normal <30 [facility] Comment on above: Order Comment: Speci men Type: BLOOD SPECIMEN Ordering Facility: [facility] Address: [address] [place] [address] Performed By: #### 2 4331-1 #### [facility] CLIA [id number] [address] [place], [place] [address] [place] [facility] CLIA [id number] [address] [place] [address] [place] Cholesterol non HDL [Mass/Vol] 75 mg/dL Normal <130 [facility] Comment on above: Order Comment: Speci men Type: BLOOD SPECIMEN Ordering Facility: [facility] Address: [address] [place] [address] Result Comment: <130 mg/dL, Optimal 130-159 mg/dL, Near optimal/above optimal 160-189 mg/dL, Borderline high 190-219 mg/dL, High >219 mg/dL, Very high Secondary prevention optimal non HDL Cholesterol levels are recommended to be <100 mg/dL Performed By: #### 2 4331-1 #### [facility] CLIA [id number] [address] [place] [address] [place] [facility] CLIA [id number] [address] [place] [address] [place] Cholesterol.total/Choles terol in HDL [Mass ratio] 2.15 {ratio} Normal <5.10 [facility] Comment on above: Order Comment: Speci men Type: BLOOD SPECIMEN Ordering Facility: [facility] Address: [address] [place] [address] Performed By: #### 2 4331-1 #### [facility] CLIA [id number] [address] [place] [address] [place] [facility] CLIA [id number] [address] [place] [address] [place] FASTING TIME 12 hrs Normal [facility] Comment on above: Order Comment: Speci men Type: BLOOD SPECIMEN Ordering Facility: [facility] Address: [address] [place] [address] Performed By: #### 2 4331-1 #### [facility] CLIA [id number] [address] [place] [address] [place] [facility] CLIA [id number] [address] [place] [address] [facility] Triglyceride [Mass/Vol] 86 mg/dL Normal <150 C [facility] Comment on above: Order Comment: Speci men Type: BLOOD SPECIMEN Ordering Facility: [facility] Address: [address] [place] [address] Result Comment: <150 mg/dL, Normal 150-199 mg/dL, Borderline high 200-499 mg/dL, High >499 mg/dL, Very high Performed By: #### 2 4331-1 #### [facility] CLIA [id number] [address] [place] [address] [place] [facility] CLIA [id number] [address] [place] [address] STATES [place] [facility] CBC W Auto Differential pane l (Bld)on 03-27-2025 Basophils (Bld) [#/Vol] 0.06 10*3/uL [facility] Basophils/100 WBC (Bld) 0.8 % C [facility] Differential cell count method Nom (Bld) Auto [facility] Eosinophils (Bld) [#/Vol] 0.12 10*3/uL [facility] Eosinophils/100 WBC (Bld) 1.5 % [facility] Erythrocyte distribution width (RBC) [Ratio] 13 % 11.5 - 15.0 % [facility] Hematocrit (Bld) [Volume fraction] 46.6 % High 36.0 - 46.0 % [facility] Hemoglobin (Bld) [Mass/Vol] 15.2 g/dL 11.5 - 15.5 g/dL [facility] Immature granulocytes (Bld) [#/Vol] NINF [facility] Immature granulocytes/100 WBC (Bld) 0.1 % [facility] Interpretation and review of laboratory results Abnormal [facility] Lymphocytes (Bld) [#/Vol] 1.88 10*3/uL [facility] Lymphocytes/100 WBC (Bld) 23.8 % [facility] MCH (RBC) [Entitic mass] 32.7 pg 26. 0 - 34.0 pg [facility] MCHC (RBC) [Mass/Vol] 32.6 g/dL 30.5 - 36.0 g/dL [facility] MCV (RBC) [Entitic vol] 100.2 fL High 80.0 - 100.0 fL [facility] Monocytes (Bld) [#/Vol] 0.81 10*3/uL [facility] Monocytes/100 WBC (Bld) 10.2 % C [facility] Neutrophils (Bld) [#/Vol] 5.03 10*3/uL [facility] Neutrophils/100 WBC (Bld) 63.6 % [facility] Nucleated RBC (Bld) [#/Vol] NINF [facility] Nucleated RBC/100 WBC (Bld) [Ratio] 0 % /100 WBC [facility] Platelet mean volume (Bld) [Entitic vol] 11.3 fL 9.0 - 12.7 fL [facility] Platelets (Bld) [#/Vol] 226 10*3/uL [facility] RBC (Bld) [#/Vol] 4.65 10*6/uL 3.90 - 5.2 0 m/uL [facility] WBC (Bld) [#/Vol] 7.91 10*3/uL [facility] Basophils (Bld) [#/Vol] 0.06 10*3/uL Normal <0.11 [facility] Comment on above: Order Comment: Speci men Type: BLOOD SPECIMEN Ordering Facility: [facility] Address: [address] [place] [address] Performed By: #### 5 7021-8 #### [facility] CLIA [id number] [address] [place] [address] [place] Basophils/100 WBC (Bld) 0.8 % Normal [facility] Comment on above: Order Comment: Speci men Type: BLOOD SPECIMEN Ordering Facility: [facility] Address: [address] [place] [address] Performed By: #### 5 7021-8 #### [facility] CLIA [id number] [address] [place] [address] [place] Differential cell count method Nom (Bld) Auto Normal [facility] Comment on above: Order Comment: Speci men Type: BLOOD SPECIMEN Ordering Facility: [facility] Address: [address] [place] [address] Performed By: #### 5 7021-8 #### [facility] CLIA [id number] [address] [place] [address] [place] Eosinophils (Bld) [#/Vol] 0.12 10*3/uL Normal <0.46 [facility] Comment on above: Order Comment: Speci men Type: BLOOD SPECIMEN Ordering Facility: [facility] Address: [address] [place] [address] Performed By: #### 5 7021-8 #### [facility] CLIA [id number] [address] [place] [address] [place] Eosinophils/100 WBC (Bld) 1.5 % Normal [facility] Comment on above: Order Comment: Speci men Type: BLOOD SPECIMEN Ordering Facility: [facility] Address: [address] [place] [address] Performed By: #### 5 7021-8 #### [facility] CLIA [id number] [address] [place] [address] [place] Erythrocyte distribution width (RBC) [Ratio] 13.0 % Normal 11.5-15.0 [facility] Comment on above: Order Comment: Speci men Type: BLOOD SPECIMEN Ordering Facility: [facility] Address: [address] [place] [address] Performed By: #### 5 7021-8 #### [facility] CLIA [id number] [address] [place] [address] [place] Hematocrit (Bld) [Volume fraction] 46.6 % High 36.0-46.0 [facility] Comment on above: Order Comment: Speci men Type: BLOOD SPECIMEN Ordering Facility: [facility] Address: [address] [place] [address] Performed By: #### 5 7021-8 #### [facility] CLIA [id number] [address] [place] [address] [place] Hemoglobin (Bld) [Mass/Vol] 15.2 g/dL Normal 11.5-15.5 [facility] Comment on above: Order Comment: Speci men Type: BLOOD SPECIMEN Ordering Facility: [facility] Address: [address] [place] [address] Performed By: #### 5 7021-8 #### [facility] CLIA [id number] [address] [place] [address] [place] Immature granulocytes (Bld) [#/Vol] 10*3/uL Normal <0.10 [facility] Comment on above: Order Comment: Speci men Type: BLOOD SPECIMEN Ordering Facility: [facility] Address: [address] [place] [address] Performed By: #### 5 7021-8 #### [facility] CLIA [id number] [address] [place] [address] [place] Immature granulocytes/100 WBC (Bld) 0.1 % Normal [facility] Comment on above: Order Comment: Speci men Type: BLOOD SPECIMEN Ordering Facility: [facility] Address: [address] [place] [address] Performed By: #### 5 7021-8 #### [facility] CLIA [id number] [address] [place] [address] [place] Lymphocytes (Bld) [#/Vol] 1.88 10*3/uL Normal 1.00-4.00 [facility] Comment on above: Order Comment: Speci men Type: BLOOD SPECIMEN Ordering Facility: [facility] Address: [address] [place] [address] Performed By: #### 5 7021-8 #### [facility] CLIA [id number] [address] [place] [address] [place] Lymphocytes/100 WBC (Bld) 23.8 % Normal [facility] Comment on above: Order Comment: Speci men Type: BLOOD SPECIMEN Ordering Facility: [facility] Address: [address] [place] [address] Performed By: #### 5 7021-8 #### [facility] CLIA [id number] [address] [place] [address] [place] MCH (RBC) [Entitic mass] 32.7 pg Normal 26.0-34.0 [facility] Comment on above: Order Comment: Speci men Type: BLOOD SPECIMEN Ordering Facility: [facility] Address: [address] [place] [address] Performed By: #### 5 7021-8 #### [facility] CLIA [id number] [address] [place] [address] [place] MCHC (RBC) [Mass/Vol] 32.6 g/dL Normal 30.5-36.0 [facility] Comment on above: Order Comment: Speci men Type: BLOOD SPECIMEN Ordering Facility: [facility] Address: [address] [place] [address] Performed By: #### 5 7021-8 #### [facility] CLIA [id number] [address] [place] [address] [place] MCV (RBC) [Entitic vol] 100.2 fL High 80.0-100.0 C [facility] Comment on above: Order Comment: Speci men Type: BLOOD SPECIMEN Ordering Facility: [facility] Address: [address] [place] [address] Performed By: #### 5 7021-8 #### [facility] CLIA [id number] [address] [place] [address] [place] Monocytes (Bld) [#/Vol] 0.81 10*3/uL Normal <0.87 [facility] Comment on above: Order Comment: Speci men Type: BLOOD SPECIMEN Ordering Facility: [facility] Address: [address] [place], [place] [address] Performed By: #### 5 7021-8 #### [facility] CLIA [id number] [address] [place] [address] [place] Monocytes/100 WBC (Bld) 10.2 % Normal [facility] Comment on above: Order Comment: Speci men Type: BLOOD SPECIMEN Ordering Facility: [facility] Address: [address] [place] [address] Performed By: #### 5 7021-8 #### [facility] CLIA [id number] [address] [place] [address] [place] Neutrophils (Bld) [#/Vol] 5.03 10*3/uL Normal 1.45-7.50 [facility] Comment on above: Order Comment: Speci men Type: BLOOD SPECIMEN Ordering Facility: [facility] Address: [address] [place] [address] Performed By: #### 5 7021-8 #### [facility] CLIA [id number] [address] [place] [address] [place] Neutrophils/100 WBC (Bld) 63.6 % Normal [facility] Comment on above: Order Comment: Speci men Type: BLOOD SPECIMEN Ordering Facility: [facility] Address: [address] [place] [address] Performed By: #### 5 7021-8 #### [facility] CLIA [id number] [address] [place] [address] [place] Nucleated RBC (Bld) [#/Vol] 10*3/uL Normal <0.01 [facility] Comment on above: Order Comment: Speci men Type: BLOOD SPECIMEN Ordering Facility: [facility] Address: [address] [place] [address] Performed By: #### 5 7021-8 #### [facility] CLIA [id number] [address] [place] [address] [place] Nucleated RBC/100 WBC (Bld) [Ratio] 0.0 /100 WBC Normal [facility] Comment on above: Order Comment: Speci men Type: BLOOD SPECIMEN Ordering Facility: [facility] Address: [address] [place] [address] Performed By: #### 5 7021-8 #### [facility] CLIA [id number] [address] [place] [address] [place] Platelet mean volume (Bld) [Entitic vol] 11.3 fL Normal 9.0-12.7 [facility] Comment on above: Order Comment: Speci men Type: BLOOD SPECIMEN Ordering Facility: [facility] Address: [address] [place] [address] Performed By: #### 5 7021-8 #### [facility] CLIA [id number] [address] [place] [address] [place] Platelets (Bld) [#/Vol] 226 10*3/uL Normal 150-400 [facility] Comment on above: Order Comment: Speci men Type: BLOOD SPECIMEN Ordering Facility: [facility] Address: [address] [place] [address] Performed By: #### 5 7021-8 #### [facility] CLIA [id number] [address] [place] [address] [place] RBC (Bld) [#/Vol] 4.65 10*6/uL Normal 3.90-5.20 [facility] Comment on above: Order Comment: Speci men Type: BLOOD SPECIMEN Ordering Facility: [facility] Address: [address] [place] [address] Performed By: #### 5 7021-8 #### [facility] CLIA [id number] [address] [place] [address] [place] WBC (Bld) [#/Vol] 7.91 10*3/uL Normal 3.70-11.00 [facility] Comment on above: Order Comment: Speci men Type: BLOOD SPECIMEN Ordering Facility: [facility] Address: [address] [place] [address] Performed By: #### 5 7021-8 #### [facility] CLIA [id number] [address] [place] [address] [place] [address] [place] CNOVon 03-27-2025 CNOV Office Visit (INTMWS) ANNETTA MURDOCK ([id number]) 1945 F Date Time Provider Department 03/27/25 1:00 PM SHAMA CUELLAR INTMWS During your visit today, we recorded the following information about you: Pulse Blood pressure Weight Height 98/minute 112/68 100.2 kg 1.6 m Shama Cuellar, [employer].RESEARCH NUTRITIONIST 03/27/2025 1:54 PM Signed Subjective Patient ID: Annetta is a 79 year old female who presents for Establish Care. HPI Annetta Murdock is a 79-year-old female with a history of anxiety, depression, HTN, hyperlipidemia, and throat cancer, presenting for an initial visit and evaluation of left knee pain. Presents today to [facility] care with Elizabeth Frye MD [...] managed shoulder and knee pain with a pain medicine physician in [place]. Throat Cancer: - Diagnosed in 2017; underwent [...] together for 16 years. - is on Annteta's medical advanced directive Objective BP 112/68 Pulse [...] for furt (more content not included)... Normal [facility] Comprehensive metabolic 2000 panelon 03-27-2025 Albumin [Mass/Vol] 4.2 g/dL Normal 3.9-4.9 [facility] Comment on above: Order Comment: Speci men Type: BLOOD SPECIMEN Ordering Facility: [facility] Address: [address] [place] [address] Performed By: #### 3 016-3, 26492-8, LIPNF #### [facility] CLIA [id number] [address] [place] [address] [place] ALP [Catalytic activity/Vol] 95 U/L Normal 34-123 [facility] Comment on above: Order Comment: Speci men Type: BLOOD SPECIMEN Ordering Facility: [facility] Address: [address] [place] [address] Performed By: #### 3 016-3, 53301-4, LIPNF #### [facility] CLIA [id number] [address] [place], [place] [id number] [place] ALT [Catalytic activity/Vol] 18 U/L Normal 7-38 [facility] Comment on above: Order Comment: Speci men Type: BLOOD SPECIMEN Ordering Facility: [facility] Address: [address] [place] [address] Performed By: #### 3 016-3, 18720-8, LIPNF #### [facility] CLIA [id number] [address] [place] [address] [place] Anion gap [Moles/Vol] 13 mmol/L Normal 8-15 [facility] Comment on above: Order Comment: Speci men Type: BLOOD SPECIMEN Ordering Facility: [facility] Address: [address] [place] [address] Performed By: #### 3 016-3, 00288-0, LIPNF #### [facility] CLIA [id number] [address] [place] [address] [place] AST [Catalytic activity/Vol] 30 U/L Normal 13-35 [facility] Comment on above: Order Comment: Speci men Type: BLOOD SPECIMEN Ordering Facility: [facility] Address: [address] [place] [address] Performed By: #### 3 016-3, 61592-2, LIPNF #### [facility] CLIA [id number] [address] [place] [address] [place] Bilirubin [Mass/Vol] 0.4 mg/dL Normal 0.2-1.3 [facility] Comment on above: Order Comment: Speci men Type: BLOOD SPECIMEN Ordering Facility: [facility] Address: [address] [place] [address] Performed By: #### 3 016-3, 86504-2, LIPNF #### [facility] CLIA [id number] [address] [place] [address] [place] Calcium [Mass/Vol] 10.0 mg/dL Normal 8.5-10.2 [facility] Comment on above: Order Comment: Speci men Type: BLOOD SPECIMEN Ordering Facility: [facility] Address: [address] [place] [address] Performed By: #### 3 016-3, 34143-8, LIPNF #### [facility] CLIA [id number] [address] [place] [address] [place] Chloride [Moles/Vol] 104 mmol/L Normal 98-107 [facility] Comment on above: Order Comment: Speci men Type: BLOOD SPECIMEN Ordering Facility: [facility] Address: [address] [place] [address] Performed By: #### 3 016-3, 71204-4, LIPNF #### [facility] CLIA [id number] [address] [place] [address] [place] CO2 [Moles/Vol] 24 mmol/L Normal 22-30 [facility] Comment on above: Order Comment: Speci men Type: BLOOD SPECIMEN Ordering Facility: [facility] Address: [address] [place] [address] Performed By: #### 3 016-3, 64108-5, LIPNF #### [facility] CLIA [id number] [address] [place] [address] [place] Creatinine [Mass/Vol] 0.91 mg/dL Normal 0.58-0.96 [facility] Comment on above: Order Comment: Speci men Type: BLOOD SPECIMEN Ordering Facility: [facility] Address: [address] [place] [address] Performed By: #### 3 016-3, 91878-1, LIPNF #### [facility] CLIA [id number] [address] [place] [address] [place] Creatinine and Glomerular filtration rate.predicted panel (S/P/Bld) 65 mL/min/1.73m??? Normal >=60 [facility] Comment on above: Order Comment: Speci men Type: BLOOD SPECIMEN Ordering Facility: [facility] Address: [address] [place] [address] Result Comment: Emilie mated Glomerular Filtration Rate [...] actual GFR. Performed By: #### 3 016-3, 29674-9, LIPNF #### [facility] CLIA [id number] [address] [place] [address] [place] Glucose [Mass/Vol] 96 mg/dL Normal 74-99 [facility] Comment on above: Order Comment: Specleatha king Type: BLOOD SPECIMEN Ordering Facility: [facility] Address: [address] [place] [address] Result Comment: The [place] Diabetes Association (ADA) provides guidance for cutoff [...] Standards of Medical Care in Diabetes 2016, [place] [employer] Association. Diabetes Care. 2016.39(Suppl 1). Performed By: #### 3 016-3, 09786-8, LIPNF #### [facility] CLIA [id number] [address] [place] [address] [place] Potassium [Moles/Vol] 4.8 mmol/L Normal 3.7-5.1 [facility] Comment on above: Order Comment: Masha king Type: BLOOD SPECIMEN Ordering Facility: [facility] Address: [address] [place] [address] Performed By: #### 3 016-3, 77931-6, LIPNF #### [facility] CLIA [id number] [address] [place] [address] [place] Protein [Mass/Vol] 6.8 g/dL Normal 6.3-8.0 [facility] Comment on above: Order Comment: Speci men Type: BLOOD SPECIMEN Ordering Facility: [facility] Address: [address] [place] [address] Performed By: #### 3 016-3, 46793-9, LIPNF #### [facility] CLIA [id number] [address] [place] [address] [place] Sodium [Moles/Vol] 141 mmol/L Normal 136-144 [facility] Comment on above: Order Comment: Speci men Type: BLOOD SPECIMEN Ordering Facility: [facility] Address: [address] [place] [address] Performed By: #### 3 016-3, 98993-0, LIPNF #### [facility] CLIA [id number] [address] [place] [address] [place] Urea nitrogen [Mass/Vol] 24 mg/dL High 7-21 [facility] Comment on above: Order Comment: Speci men Type: BLOOD SPECIMEN Ordering Facility: [facility] Address: [address] [place] [address] Performed By: #### 3 016-3, 05530-5, LIPNF #### [facility] CLIA [id number] [address] [place] [address] [place] HCV Ab Ser Qlon 03-27-2025 HCV Ab Ql (S) Negative Normal Negative [facility] Comment on above: Order Comment: Speci men Type: BLOOD SPECIMEN Ordering Facility: [facility] Address: [address] [place] [address] Result Comment: The result suggests no evidence of infection with Hepatitis C virus. Should recent infection be suspected, repeat testing may be considered 4-6 weeks after this draw. Performed By: #### 1 6128-1 #### [facility] CLIA [id number] [address] [place] [address] LIPID PANEL, NONFASTINGon Cholesterol [Mass/Vol] 146 mg/dL Normal <200 [facility] Comment on above: Order Comment: Masha christine Type: BLOOD SPECIMEN Ordering Facility: [facility] Address: [address] [place] [address] Result Comment: <200 mg/dL, Desirable 200-239 mg/dL, Borderline high >239 mg/dL, High Performed By: #### 3 016-3, 60382-2, LIPNF #### [facility] CLIA [id number] [address] [place] [address] [facility] HDL CHOLESTEROL, NF 66 mg/dL Normal >39 [facility] Comment on above: Order Comment: Masha king Type: BLOOD SPECIMEN Ordering Facility: [facility] Address: [address] [place] [address] Result Comment: 40-5 9 mg/dL, Acceptable >59 mg/dL, High: Negative risk factor for coronary heart disease <40 mg/dL, Low: Positive risk factor for coronary heart disease Performed By: #### 3 016-3, 60279-2, LIPNF #### [facility] CLIA [id number] [address] [place] [address] LDL CHOLESTEROL CALCULATED, NF 59 mg/dL Normal <100 [facility] Comment on above: Order Comment: Speci men Type: BLOOD SPECIMEN Ordering Facility: [facility] Address: [address] [place] [address] Result Comment: <100 mg/dL, Optimal 100-129 mg/dL, Near optimal/above optimal 130-159 mg/dL, Borderline high 160-189 mg/dL, High >189 mg/dL, Very high Secondary prevention optimal LDL Cholesterol levels are recommended to be <70 mg/dL LDL cholesterol is calculated using the Matthews-NIH equation. Performed By: #### 3 016-3, 15263-4, LIPNF #### [facility] CLIA [id number] [address] [place] [address] [place] LDL/HDL RATIO, NF 0.89 mg/dL Normal <2.54 [facility] Comment on above: Order Comment: Masha king Type: BLOOD SPECIMEN Ordering Facility: [facility] Address: [address] [place] [address] Result Comment: Keo solis: 1. National Cholesterol Education Program ATP III Guideline At-A-Glance Quick Desk Reference: National Heart, Lung, and Blood [place]. National Institutes of Health. 2001: NIH Publication No. 01-3305. 2. An International Atherosclerosis Society position paper: global recommendations for the management of dyslipidemia: executive summary, Atherosclerosis. 2014: 232(2):410-413. Performed By: #### 3 016-3, 81697-3, LIPNF #### [facility] CLIA [id number] [address] [place] [address] NON HDL CHOL, NF 80 mg/dL Normal <130 [facility] Comment on above: Order Comment: Masha king Type: BLOOD SPECIMEN Ordering Facility: [facility] Address: [address] [place] [address] Result Comment: <130 mg/dL, Optimal 130-159 mg/dL, Near optimal/above optimal 160-189 mg/dL, Borderline high 190-219 mg/dL, High >219 mg/dL, Very high Secondary prevention optimal non HDL Cholesterol levels are recommended to be <100 mg/dL Performed By: #### 3 016-3, 97069-8, LIPNF #### [facility] CLIA [id number] [address] [place] [address] T CHOL/HDL RATIO NF 2.21 mg/dL Normal <5.10 [facility] Comment on above: Order Comment: Masha king Type: BLOOD SPECIMEN Ordering Facility: [facility] Address: [address] [place] [address] Performed By: #### 3 016-3, 09910-7, LIPNF #### [facility] CLIA [id number] [address] [place] [address] [place] TRIGLYCERIDES, NF 122 mg/dL Normal <150 [facility] Comment on above: Order Comment: Speci men Type: BLOOD SPECIMEN Ordering Facility: [facility] Address: [address] [place] [address] Result Comment: <150 mg/dL, Normal 150-199 mg/dL, Borderline high 200-499 mg/dL, High >499 mg/dL, Very high Performed By: #### 3 016-3, 15239-6, LIPNF #### [facility] CLIA [id number] [address] [place] [address] [place] VLDL CHOLESTEROL, NF 18 mg/dL Normal <30 [facility] Comment on above: Order Comment: Speci men Type: BLOOD SPECIMEN Ordering Facility: [facility] Address: [address] [place] [address] Performed By: #### 3 016-3, 02611-4, LIPNF #### [facility] CLIA [id number] [address] [place] [address] [place] TSH SerPl-aCncon 03-27-2025 TSH Qn 1.450 m[IU]/L Normal 0.270-4.200 [facility] Comment on above: Order Comment: Speci men Type: BLOOD SPECIMEN Ordering Facility: [facility] Address: [address] [place] [address] Performed By: #### 3 016-3, 55542-8, LIPNF #### [facility] CLIA [id number] [address] [place] [address] [place] Otheron 09-25-2020 COVID-19 PCR, NASOPHARYNX Not Detected Not Detected [facility] Hematologyon 09-21-2020 Hematocrit (Bld) [Volume fraction] 43.6 % 33 - 47 % [facility] Hemoglobin (Bld) [Mass/Vol] 14.5 g/dL 11.0 - 16.0 g/dL [facility] MCH (RBC) [Entitic mass] 33.3 pg High 27. 0 - 31.0 pg [facility] MCV (RBC) [Entitic vol] 100.2 fL High 80.0 - 100.0 fL [facility] Platelets (Bld) [#/Vol] 183 10*3/uL 130 - 400 x10-3/uL [facility] RBC (Bld) [#/Vol] 4.35 10*6/uL 3.70 - 5.3 0 x10-6/uL [facility] WBC (Bld) [#/Vol] 4.5 10*3/uL 4.0 - 10.0 x10-3/uL [facility] Metabolic Panelon 09-21-2020 Albumin [Mass/Vol] 3.8 g/dL 3.4 - 5.0 g/dL [facility] ALP [Catalytic activity/Vol] 79 U/L 45 - 117 IU/L [facility] ALT [Catalytic activity/Vol] 22 U/L 12 - 78 IU/L [facility] Anion gap [Moles/Vol] 4 units Low 5 - 15 units [facility] AST [Catalytic activity/Vol] 21 U/L 15 - 37 IU/L [facility] Bilirubin [Mass/Vol] 0.77 mg/dL 0.20 - 1.00 mg/dL [facility] Calcium [Mass/Vol] 9.2 mg/dL 8.5 - 10. 1 mg/dL [facility] Chloride [Moles/Vol] 105 mmol/L 98 - 10 7 mmol/L [facility] CO2 [Moles/Vol] 30 mmol/L 21 - 32 mmol/L [facility] Creatinine [Mass/Vol] 1.0 mg/dL 0.5 - 1.0 mg/dL [facility] Glucose [Mass/Vol] 84 mg/dL 74 - 106 mg/dL [facility] Potassium [Moles/Vol] 4.1 mmol/L 3.5 - 5.1 mmol/L [facility] Protein [Mass/Vol] 6.8 g/dL 6.4 - 8.2 g/dL [facility] Sodium [Moles/Vol] 139 mmol/L 136 - 145 mmol/L [facility] Urea nitrogen [Mass/Vol] 28 mg/dL High 7 - 18 mg/d L [facility] Otheron 09-21-2020 Psychologist Developmental Marked SINUS BRADYCARDIA BORDERLINE ECG [facility] ABO/Rh Positive [facility] Albumin/Globulin [Mass ratio] 1.2 {ratio} 1.0 - 2.2 [facility] GFR/1.73 sq M.predicted MDRD (S/P/Bld) [Vol rate/Area] 54.49 mL/mn/1.73m2 Abnormal >60.00 mL/mn/1.73m2 [facility] Globulin (S) [Mass/Vol] 3.1 g/dL 2.5 - 4.5 g/dL [facility] Erythrocyte distribution width (RBC) [Ratio] 12.0 % Low 12.8 - 16.4 % [facility] MCHC (RBC) [Mass/Vol] 33.3 g/dL 32.0 - 36.0 g/dL [facility] Platelet mean volume (Bld) [Entitic vol] 10.8 fL High 7.4 - 10.4 fL [facility] Otheron 03-09-2020 [facility] DEPARTMENT OF PATHOLOGY SURGICAL PATHOLOGY REPORT [id number] Submitting Physician: MELISSA GREEN MD Procedure Date: 03/05/2020 Received: 03/08/2020 Reported: 03/09/2020 11:00 SPECIMEN(S) RECEIVED A:Small bowel, biopsy B:Gastric biopsy C:Distal esophagus, biopsy D:Mid esophagus, biopsy FINAL DIAGNOSIS RECEIVED FROM [facility] A. SMALL BOWEL BIOPSY: - FRAGMENTS OF [...] GROSS DESCRIPTION A. Received in formalin from [place] labeled with the patient's name, ) and small bowel is a 0.5 cm aggregate of figueroa soft tissue which is entirely submitted in a single cassette. B. Received in formalin from [place] labeled with the patient's name, medical record number and gastric biopsy is a 0.2 cm figueroa soft tissue fragment which is entirely submitted in a single cassette. C. Received in formalin from [place] labeled with the patient's name, medical record number and distal esophagus; rule out EOE are two 0.1 cm figueroa soft tissue fragments which are entirely submitted in a single cassette. D. Received in formalin from [place] labeled with the patient's name, medical record number and mid esophagus; rule out EOE are two 0.1 to 0.2 cm figueroa soft tissue fragments which are entirely submitted in a single cassette. HB/db 03/08/2020 Diagnostic interpretation performed at [facility], [address], [place] [address]. CLIA Number: [id number] [facility] SURGICAL PATHOLOGYon 020 SURGICAL PATHOLOGY [facility] DEPARTMENT OF PATHOLOGY SURGICAL PATHOLOGY REPORT [id number] Submitting Physician: MELISSA GREEN MD Procedure Date: 03/05/2020 Received: 03/08/2020 Reported: 03/09/2020 11:00 SPECIMEN(S) RECEIVED A:Small bowel, biopsy B:Gastric biopsy C:Distal esophagus, biopsy D:Mid esophagus, biopsy FINAL DIAGNOSIS RECEIVED FROM [facility] A. SMALL BOWEL BIOPSY: - FRAGMENTS OF [...] GROSS DESCRIPTION A. Received in formalin from [place] labeled with the patient's name, ) and small bowel is a 0.5 cm aggregate of figueroa soft tissue which is entirely submitted in a single cassette. B. Received in formalin from [place] labeled with the patient's name, medical record number and gastric biopsy is a 0.2 cm figueroa soft tissue fragment which is entirely submitted in a single cassette. C. Received in formalin from [place] labeled with the patient's name, medical record number and distal esophagus; rule out EOE are two 0.1 cm figueroa soft tissue fragments which are entirely submitted in a single cassette. D. Received in formalin from [place] labeled with the patient's name, medical record number and mid esophagus; rule out EOE are two 0.1 to 0.2 cm figueroa soft tissue fragments which are entirely submitted in a single cassette. HB/db 03/08/2020 Diagnostic interpretation performed at [facility], [address] [facility], [place] [address]. CLIA Number: [id number] Normal [facility] Vital Signs Date Time Vital Sign Value Performing Clinician Faci lity 04-20-2025 16:00-0400 Heart rate 47 /min Dr. Elizabeth Frye MD Work Phone: [phone] [place] [address] 04-20-2025 16:00-0400 SaO2% (BldA) [Mass fraction] 97 % Dr. Elizabeth Frye MD Work Phone: 7([phone] [place] [address] 04-20-2025 15:04-0400 Body temperature 97.7 [degF] Dr. Elizabeth Frye MD Work Phone: [phone])[phone] [place] [address] 04-20-2025 15:04-0400 Diastolic blood pressure 62 mm[Hg] Dr. Elizabeth Frye MD Work Phone: 8(375)[phone] [place] [address] 04-20-2025 15:04-0400 Respiratory rate 14 /min Dr. Elizabeth Frye MD Work Phone: 4([phone])[phone] [place] [address] 04-20-2025 15:04-0400 Systolic blood pressure 158 mm[Hg] Dr. Elizabeth Frye MD Work Phone: 2([phone])[phone] [place] [address] 04-20-2025 10:21-0400 Body height 162.[address] Elizabeth Frye MD Work Phone: 7(087)[phone] [place] [address] 04-20-2025 10:21-0400 Body mass index (BMI) [Ratio] 38.2 kg/m2 Dr. Elizabeth Frye MD Work Phone: [phone] [place] [address] 04-20-2025 10:21-0400 Body weight [address] Elizabeth Frye MD Work Phone: 1([phone] [place] [address] 03-27-2025 12:55-0400 Body height 160 cm Shama Cuellar VICE PRESIDENT PHARMACY.RESEARCH NUTRITIONIST Work Phone: [facility] 03-27-2025 12:55-0400 Body mass index (BMI) [Ratio] 39.14 kg/m2 Shama Cuellar VICE PRESIDENT PHARMACY.RESEARCH NUTRITIONIST Work Phone: [facility] 03-27-2025 12:55-0400 Body weight 100.2 kg Shama Cuellar VICE PRESIDENT PHARMACY.RESEARCH NUTRITIONIST Work Phone: [facility] 03-27-2025 12:55-0400 Diastolic blood pressure 68 mm[Hg] Shama Cuellar VICE PRESIDENT PHARMACY.RESEARCH NUTRITIONIST Work Phone: [facility] 03-27-2025 12:55-0400 Heart rate 98 /min Shama Cuellar VICE PRESIDENT PHARMACY.RESEARCH NUTRITIONIST Work Phone: [facility] 03-27-2025 12:55-0400 Systolic blood pressure 112 mm[Hg] Shama Cuellar VICE PRESIDENT PHARMACY.RESEARCH NUTRITIONIST Work Phone: [facility] Encounters Encounter Date Encounter Type Care Provider Facility Start: 07-13-2025 ambulatory [facility] Facility: [facility] Start: 04-20-2025 Non-patient / Non-visit Dr. Ramón Henriquez DO -[facility] Work Phone: Start: 04-20-2025 Evaluation and manag ement of inpatient Dr. Erich Henriquez DO -[facility] Work Phone: Start: 04-20-[address] Elizabeth Frye MD Work Phone: -[facility] Start: 04-14-[address] Li Carrasco MD -Radiology [facility] Work Phone: Start: 04-14-2025 ambulatory Elizabeth Frye [facility] y:[facility] Start: 03-30-2025 End: 03-30-2025 ambulatory [facility] Facility:[facility] Start: 03-27-2025 End: 03-27-2025 ambulatory [facility] Facility:[facility] Start: 03-27-2025 End: 03-27-2025 Patient encounter procedure Shama Cuellar APRN.RESEARCH NUTRITIONIST Work Phone: Internal Medicine Paul Comment on [...] Start: 03-27-2025 End: 03-27-2025 ambulatory SHAMA CUELLAR Facility:[facility] Start: 03-27-2025 End: 03-27-2025 Ophthalmic examination and evaluation Shama Cuellar APRN.RESEARCH NUTRITIONIST Work Phone: [facility] Start: 09-21-2020 End: 09-24-2020 Subsequent hospital visit by physician Ita Smith Work Phone: [facility] Comment on above: SHOULDER ARTHROPLAST Y RIGHT Start: 03-05-2020 End: 03-05-2020 Subsequent hospital visit by physician Melissa Green Work Phone: [facility] Comment on above: R13.14 Start: 03-05-2020 End: 03-05-2020 Subsequent hospital visit by physician Lab Comment on above: Dysphagia, pharyngoe sophageal phase [R13.14] Start: 02-24-2020 End: 02-24-2020 Subsequent hospital visit by physician Melissa Green Work Phone: [facility] Comment on above: r12, r13.14, r11.0, r10.13 [...] Start: 03-27-2025 Adult depression scr eening assessment Shama Cuellar AURORA.RESEARCH NUTRITIONIST Work Phone: Start: 09-24-2020 COVID-19 PCR, NASOPH ARYNX (BIO-REF) [facility] [facility] Work Phone: Start: 09-21-2020 Antibody screen [facility] Start: 09-21-2020 ABO AND RH ONLY [facility] [facility] Work Phone: Start: 09-21-2020 Antibody screen [facility] Work Phone: Start: 09-21-2020 CBC [facility] Work Phone: Start: 09-21-2020 Comprehensive metabo lic 2000 panel [facility] Work Phone: Start: 09-21-2020 MRSA CULTURE SCREEN [facility] Work Phone: Start: 09-21-2020 Ecg routine ecg w/le ast 12 lds w/i&r [facility] [facility] Work Phone: Start: 03-05-2020 SURGICAL PATHOLOGY Matthew Green Work Phone: Plan of Treatment Date Care Activity Detail Author Start: 12-26-2033 Urine microalbumin profile DTaP,Tdap,Td Vaccine (3 - Td or Tdap) [facility] Start: 03-27-2026 Annual PCP Team Broadband Installer marianna Disease Visit Annual PCP Team Chronic Disease Visit [facility] Start: 03-27-2026 Anxiety Screening Anxiety Screening [facility] Start: 03-27-2026 Depression Screening Depression Scre ening [facility] Start: 10-12-2025 End: 10-12-2025 Patient encounter procedure 10/12/2025 2:00 PM EST Office Visit Internal Medicine [place] [address] [place] [address] Elizabeth Frye MD [address] [place] [address] 6 month f/u - new to [facility] Comment on above: 6 month f/u - new to [facility] Start: 06-29-2025 End: 06-29-2025 Patient encounter procedure 06/29/2025 11:15 AM EDT Appointment Radiology [address] [place] [id number] Asymptomatic menopause [Z78.0] Radiology Comment on above: Asymptomatic menopau se [Z78.0] Start: 05-18-2025 Covid-19 Vaccine ( season) Covid-19 Vaccine () [facility] Comment on above: Postponed from 05/18 (Declined at this time) Start: 05-18-2025 Influenza vaccination Influenza Vacc ine (#1) [facility] Start: 04-27-2025 End: 04-27-2025 Patient encounter procedure 04/27/2025 11:10 AM EDT Appointment Mammogram [address] [place] [address] Breast cancer screening by mammogram [Z12.31] Mammogram Comment on above: Breast cancer screen ing by mammogram [Z12.31] Start: 04-20-2025 Hospital admission, emergency, from emergency room, medical nature [facility] Start: 04-20-2025 Verification routine [facility] Start: 04-20-2025 Admission procedure [facility] Start: 04-20-2025 [facility] Start: 03-27-2025 End: 06-26-2025 Comprehensive metabolic 2000 panel - Serum or Plasma [facility] Comment on above: Expected: 03/27/2025 , Expires: 06/26/2025 Start: 03-27-2025 End: 06-26-2025 Hepatitis C virus Ab [Presence] in Serum [facility] Work Phone: Comment on above: Expected: 03/27/2025 , Expires: 06/26/2025 Start: 03-27-2025 End: 06-26-2025 Lipid 1996 panel - Serum or Plasma LIPID PANEL, FASTING Lab Routine Acquired hypothyroidism Other hyperlipidemia Primary hypertension Expected: 03/27/2025, Expires: 06/26/2025 [facility] Comment on above: Expected: 03/27/2025 , Expires: 06/26/2025 Start: 03-27-2025 End: 06-26-2025 LIPID PANEL, NONFASTING [facility] Comment on above: Expected: 03/27/2025 , Expires: 06/26/2025 Start: 03-27-2025 End: 06-26-2025 Thyrotropin [Units/volume] in Serum or Plasma [facility] Comment on above: Expected: 03/27/2025 , Expires: 06/26/2025 Start: 09-21-2023 Diabetes Screening Diabetes Screenin g [facility] Start: 2021 RSV Vaccine (1 - 1-d ose 75+ series) RSV Vaccine (1 - 1-dose 75+ series) [facility] Start: 01-20-2013 Shingrix Vaccine (2 of 3) Shingrix Vaccine (2 of 3) [facility] Start: 2011 Screening for osteoporosis Bone Density Screening [facility] Start: 07-18-2011 Medicare Annual Wellness Visit Medicare Annual Wellness Visit [facility] End: 04-26-2026 BD DXA TRABECULAR BONE SCORE (TBS) BD DXA TRABECULAR BONE SCORE (TBS) Radiology Routine Asymptomatic menopause 1 Occurrences starting 03/27/2025 until 04/26/2026 [facility] Comment on above: 1 Occurrences starti ng 03/27/2025 until 04/26/2026 End: 04-26-2026 DBT Breast - bilateral screening NELSON SCREENING W PATSY Radiology Routine Breast cancer screening by mammogram 1 Occurrences starting 03/27/2025 until 04/26/2026 [facility] Comment on above: 1 Occurrences starti ng 03/27/2025 until 04/26/2026 End: 04-26-2026 DXA Skeletal system.axial Views for bone density DXA-AXIAL SKELETON Radiology Routine Asymptomatic menopause 1 Occurrences starting 03/27/2025 until 04/26/2026 [facility] Comment on above: 1 Occurrences starti ng 03/27/2025 until 04/26/2026 Immunizations Immunization Date Immunization Notes Care Provider Obed khoury 06-06-2024 influenza virus vacc ine, unspecified formulation Shama Cuellar APRN.RESEARCH NUTRITIONIST Work Phone: [facility] Payers Date Payer Category Payer Self-pay 2023 Private Health Insurance [employer] S UPPLEMENT [id number] 2023 Medicare [id number] 2019 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[employer] PLUS [id number] 2019- PPO [id number] 2012 Private Health Insurance [facility] [id number] 2011 Medicare MEDICARE [id number] 2011 Medicare [id number] Unknown [id number] Unknown [id number] Social History Date Type Detail Facility Tobacco smoking stat us NHIS Unknown if ever smoked [facility] Start: 1945 Sex Assigned At Not on file [facility] Start: 03-27-2025 End: 04-20-2025 Tobacco smoking status NHIS Ex-smoker [facility] Start: 09-17-1988 History of tobacco use Current smoke r [facility] Start: 09-17-1988 History of tobacco use Cigarette Smo ker [facility] Start: 03-27-2025 Cigarettes smoked current (pack per day) - Reported 1 [facility] Start: 03-27-2025 Tobacco use and exposure Smokeless tobacco non-user [facility] Start: 03-27-2025 Alcoholic beverage intake Lifetime non-drinker (finding) [facility] Start: 03-27-2025 Tobacco use panel [facility] Adult Depression Screening Assessment 0 [facility] Start: 1945 Sex Assigned At Female W [facility] Mental Status Date Assessment Result Facility 04-20-2025 Cognitive function Voice/Name [facility] Work Phone: History and physical note 04-20-2025 Note Date & Type Note Facility 04-20-2025 History and physi jack note [facility] Radiology Diagnostic study note 04-20-2025 Note Date & Type Note Facility 04-20-2025 Radiology Diagnostic study note [facility] Imaging Services [address] [place] [address] Chest PA and Lateral MR#: [id number] Acct: [id number] Name: ANNETTA MURDOCK Rep #: [id number] : 1945 F 79 From: Gentry Pittman MD PCP: Dr. Elizabeth Frye MD Status: RE G ER Study:Chest PA and Lateral Date of Exam: 04/20/25 Exam# [id number] Ordering Dr: Ramón Muñoz MD PROCEDURE: CHEST [...] IMPRESSION: No acute cardiopulmonary process. Reading Location: [id number] CC: Dr. Maile Muñoz MD; Dr. 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 Presents today to [facility] care with Elizabeth Frye MD [...] managed shoulder and knee pain with a pain medicine physician in [place]. Throat Cancer: - Diagnosed in 2016; underwent [...] exam (Z01.00) - Discussed scheduling with local recreational resort manager. May see Dr. Cavazos. 15. History of [...] 4 - Moderate documented in this encounter [facility] Progress note 03-27-2025 Note Date & Type Note Facility 03-27-2025 Note HNO ID: [id number] Author: SHAMA CUELLAR APRN.RESEARCH NUTRITIONIST Service: ? Author Type: Nurse Specialist Type: [...] managed shoulder and knee pain with a pain medicine physician in [place]. Throat Cancer: - Diagnosed in 2016; underwent [...] exam (Z01.00) - Discussed scheduling with local recreational resort manager. May see Dr. Cavazos. 15. History of throat cancer (Z85.819) - Diagnosed in 2016, currently cancer-free since 2021. - Referred to ENT f (more content not included)... [facility] Evaluation note Note Date & Type [...] screening by mammogram documented in this encounter [facility] Evaluation note Note Date & Type Note Facility Evaluation note Diagnosis Onset Date Resolution Chest pain acute April 20 3:59pm [facility] Work Phone: History and physical note Note Date & Type Note Facility History and physical note Note Date/Time April 20, 2025 4:06pm [facility] Medical Records Department [address] [place] [address] H&P Exam - Hospitalist 04/20/25 1602 MR#: [id number] Acct: [id number] Name: ANNETTA MURDOCK Rep #:[id number] : 1945 79 From: Erich Henriquez [...] years ago when she was living in [place] and that was negative. She had seen a featherer at that time whotold her it was due to stress and anxiety. Patient did have chest pain back in 2012 where she underwent a left heart catheterization [facility] Medical History Hypercholesteremia Hypertension History of throat [...] % (Auto) 59.5, Lymph % (Auto) 27.6, Irion % (Auto) 11.5 H, Eos % (Auto) [...] IMPRESSION: No acute cardiopulmonary process. Reading Location: [facility] Assessment & Plan Assessment/Plan (1) Chest pain: PLAN: Atypical Workup here has been unremarkable with negative troponin series. Patient had moved down to [place] and has recently back to the area. [...] full code. Charges/Coding Visit Charges Inpatient E&M: 58718 Init Hosp L2 04/20/25 1606 <Electronically signed by Erich Henriquez DO> Cosigner Signature (if applicable): CC: Dr. Erich Henriquez DO; Dr. Elizabeth Frye MD~ Signed [facility] Work Phone: Reason for referral (narrative) Note Date & Type Note Facility Reason for referral (narrative) No reason for referral information available [facility] Work Phone: Summary Purpose Family History Relationship Condition Age at Onset Recorded Date/T micheline Not Specified Cardiac disease Unknown Advance Directives Advance Directive Response Recorded Date/ Time Do you have a Healthcare Power of Rope Tier? Yes April 20, 2025 10:24am Chief Complaint [...] or prosecute any alcohol or drug abuse patient.[facility] the event this information is protected by the Federal Confidentiality of Alcohol and Drug Abuse Patient Records regulations: The Federal rules restrict any use of the information to criminally investigate or prosecute any alcohol or drug abuse patient.[facility] the event this information is protected by the Federal Confidentiality of Alcohol and Drug Abuse Patient Records regulations: The Federal rules restrict any use of the information to criminally investigate or prosecute any alcohol or drug abuse patient.[facility] the event this information is protected by the Federal Confidentiality of Alcohol and Drug Abuse Patient Records regulations: The Federal rules restrict any use of the information to criminally investigate or prosecute any alcohol or drug abuse patient.[facility] the event this information is protected by the Federal Confidentiality of Alcohol and Drug Abuse Patient Records regulations: The Federal rules restrict any use of the information to criminally investigate or prosecute any alcohol or drug abuse patient.[facility] INFORMATION SOURCE (unrecogn ized section and content) DATE CREATED AUTHOR 04/04/2020 [facility] DATE CREATED AUTHOR AUTHOR'S ORGANIZ ATION 04/01/2025 [facility] DATE CREATED AUTHOR AUTHOR'S ORGANIZ ATION 04/16/2025 [facility] Reason for Visit (unrecogniz ed section and content) Reason Comments Establish Care Care Teams (unrecognized sec tion and content) Surface Supply Breathing Apparatus Relationship Specialty Start Date End Date Elizabeth Frye MD [address] [place] [address] PCP - General Internal Medicine 03/27/25 Team [...] BE BASED ON THE PRIMARY CLINICAL RECORDS. [facility]. provides no warranty or guarantee of the accuracy or completeness of information in this document.
[2025-04-21 03:24] VITALS: BP 131/58; PULSE 57; RESP 17; TEMP 36.4; O2SAT 97
[2025-04-21 05:51] LABS: Cholesterol 130 mg/dL (<=200); Low Density Lipoprotein Calc. 53 mg/dL; Triglycerides 60 mg/dL; Very Low Density Lipoprotein 12 mg/dL (5-40); cholesterol:hdl ratio screen 2.01
--- NOTE | 2025-04-21 05:55 | EKG12_ITS ---
Test Reason : PRE CI Blood Pressure : */* mmHG Vent. Rate : 51 BPM Atrial Rate : 51 BPM P-R Int : 154 ms QRS Dur : 76 ms QT Int : 426 ms P-R-T Axes : 50 28 52 degrees QTcB Int : 392 ms Sinus bradycardia Otherwise normal ECG When compared with ECG of 20-Apr-2025 17:02, MANUAL COMPARISON REQUIRED DATA IS UNCONFIRMED Confirmed by SONJA YBARRA, ROWAN ([id number]), editorial manager MARYLIN ALY ([id number]) on 04/22/2025 7:31:13 AM Referred By: Confirmed By: ROWAN CASILLAS MD
--- NOTE | 2025-04-21 05:55 | EKG12_ITS ---
Test Reason : PRE CI Blood Pressure : */* mmHG Vent. Rate : 51 BPM Atrial Rate : 51 BPM P-R Int : 154 ms QRS Dur : 76 ms QT Int : 426 ms P-R-T Axes : 50 28 52 degrees QTcB Int : 392 ms Sinus bradycardia Otherwise normal ECG When compared with ECG of 20-Apr-2025 17:02, MANUAL COMPARISON REQUIRED DATA IS UNCONFIRMED Confirmed by SONJA YBARRA, ROAWN ([id number]), editorial clerk MARYLIN ALY ([id number]) on 04/22/2025 7:31:13 AM Referred By: Confirmed By: ROWAN CASILLAS MD
[2025-04-21 06:18] VITALS: BP 160/71; PULSE 55; RESP 16; TEMP 36.2; O2SAT 97
--- NOTE | 2025-04-21 09:00 | PCM.DC.SUM ---
Providers Date of Admission: 04/20/25 Date of Discharge: 04/21/25 Primary Care Physician: Dr. Crystal Frye MD Reason For Visit: CHEST PAIN Diagnosis Discharge Diagnosis (1) Chest pain: Status: Acute Code(s): R07.9 - Chest pain, unspecified Plan Patient is a 79-year-old ladyWho presented with midsternal chest pain 1. Chest pain ? Patient was placed on a monitored bed, FL was ruled out with serial cardiac enzymes. Patient underwent subsequent evaluation with a nuclear stress test which came back negative. 2. Hypertension ? Blood pressure controlled, home medications continued with dose adjustment as needed 3. Dyslipidemia ?Patient is on statin therapy, continued at home dose 4. History of throat CA with intermittent dysphagia ? Patient is followed by ENT and recently had a laryngoscopy. Patient instructed to follow-up with his primary ENT for subsequent care Medications at Discharge Home Medications paroxetine HCl 40 mg tablet (Paxil) 20 mg PO DAILY 08/13/13 Lactobacillus acidophilus (Acidophilus capsule) 175 mg PO DAILY 04/20/25 aspirin 81 mg capsule 81 mg PO DAILY 04/20/25 atorvastatin 20 mg tablet 20 mg PO DAILY 04/20/25 cholecalciferol (vitamin D3) 25 mcg (1,000 unit) chewable tablet (VitaJoy Daily D) 25 mcg PO DAILY 04/20/25 cyanocobalamin (B12)-cobamamide 5,000 mcg-100 mcg sublingual lozenge (B12) 5,000 robin sublingual DAILY supplement 04/20/25 doxepin 10 mg/mL oral concentrate 5 mg PO DAILY 04/20/25 levothyroxine 75 mcg tablet (Synthroid) 75 mcg PO DAILY 04/20/25 lisinopril 5 mg tablet 5 mg PO DAILY 04/20/25 multivitamin-ferrous fumarate-folic acid 18 mg-400 mcg tablet (ABC Complete Women's) 2 tab PO DAILY 04/20/25 omeprazole 20 mg capsule,delayed release 20 mg PO DAILY 04/20/25 Hospital Course Summary of Care Provided Minutes Spent on Discharge: 32 Physical Exam Narrative GENERAL: cooperative HEENT: Atraumatic; normocephalic EYES; Anicteric, Normal Conjunctiva NECK; supple, normal thyroid, RESPIRATORY: Diminished to auscultation CARDIOVASCULAR: Regular S1 S2, GI: soft, normoactive bowel sounds, : No Renal angle tenderness; EXTREMITIES: No edema, no clubbing, MUSCULOSKELETAL: no muscle wasting NEURO: Awake; no lateralizing signs. SKIN: No Rash PSYCH; Flat affect Weight / BMI Weight Weight: 100.4 kg Body Mass Index (BMI) 39.2 ABG / Lab / Microbiology Data 04/20/25 10:25 04/20/25 10:25 Laboratory: Laboratory Results - last 24 hr 04/20/25 13:11: Troponin T Hi Sens 2 Hr 11 04/20/25 15:00: Troponin T Hi Sens 4Hr 12 04/21/25 04:23: Triglycerides 60, Cholesterol 130, LDL Cholesterol, Calc 53, VLDL Cholesterol 12, HDL Cholesterol 65, Cholesterol/HDL Ratio 2.01 Radiography Diagnostic Testing: Radiology Impression Chest X-Ray 04/20/25 10:50 IMPRESSION: No acute cardiopulmonary process. Reading Location: [id number] D/C Instructions DC O2, CPAP, BIPAP Needs Home O2 Discharge instructions: No Meaningful Use Info Meaningful Use Meaningful Use Diagnoses (Choose all that apply): None applicable Discharge Plan Admission Admit Date/Time: 04/20/25 15:59 Attending Provider: Amilcar Lee Primary Care Provider: Crystal Frye Consulting Providers: Erich Henriquez Discharge Orders/Prescriptions Prescriptions: Continued paroxetine HCl [Paxil] 40 MG tablet 20 mg PO DAILY atorvastatin 20 mg tablet 20 mg PO DAILY levothyroxine [Synthroid] 75 mcg tablet 75 mcg PO DAILY omeprazole 20 mg capsule,delayed release(DR/EC) 20 mg PO DAILY lisinopril 5 mg tablet 5 mg PO DAILY aspirin 81 mg capsule 81 mg PO DAILY doxepin 10 mg/mL concentrate 5 mg PO DAILY Patient Comments: [NO ORIGINAL SIG] B12 5,000-100 mcg lozenge 5,000 robin sublingual DAILY cholecalciferol (vitamin D3) [VitaJoy Daily D] 25 mcg (1,000 unit) tablet,chewable 25 mcg PO DAILY Acidophilus Capsule 175 mg PO DAILY ABC Complete Women's 18-400 mg-mcg tablet 2 tab PO DAILY Referrals / Follow Up: Crystal Frye MD [Primary Care Provider] - Within 1 Week Disposition Disposition (needs filled in before D/C Order can be placed): Home, Self Care Charges/Coding Visit Charges Inpatient E&M: 49649 Disch Hosp >30min
[2025-04-21 10:06] VITALS: BP 125/57; PULSE 61; RESP 16; TEMP 36.5; O2SAT 96
--- NOTE | 2025-04-21 11:34 | CHAPLAIN ---
Type of Pastoral Visit _x__ Initial Visit ___ Follow-up Visit ___ On-call Visit ___ General Patient Visit ___ Spiritual Assessment ___ Family Conference ___ Bereavement ___ Rapid Response ___ Code Blue ___ Other (describe below) Pastoral Care Referral From _x__ Patient ___ Family ___ Nurse ___ Physician ___ Religious Activities Director ___ Feed Adviser ___ Other (describe below) Sacrament/Intervention _x__ Active listening ___ Anointing ___ Methodist ___ Bereavement ___ Communion ___ Tessie exploration ___ _x__ Life review _x__ Prayer ___ Reconciliation ___ Sacrament of Sick ___ Supportive presence ___ Wedding ___ Other (describe below) Pastoral Comments patient and spouse are in the room; pt has recently moved back to the area to be close to family; pt is waiting test results and is feeling good about her situation and hopeful about going home; pt gives some life review since halfway living; pt has a jehovah's witness connection and welcomes prayer and presence for support today
--- NOTE | 2025-04-21 11:34 | CHAPLAIN ---
Type of Pastoral Visit _x__ Initial Visit ___ Follow-up Visit ___ On-call Visit ___ General Patient Visit ___ Spiritual Assessment ___ Family Conference ___ Bereavement ___ Rapid Response ___ Code Blue ___ Other (describe below) Pastoral Care Referral From _x__ Patient ___ Family ___ Nurse ___ Physician ___ Slot Shift Manager ___ Hospital Laboratory Technician ___ Other (describe below) Sacrament/Intervention _x__ Active listening ___ Anointing ___ Orthodox ___ Bereavement ___ Communion ___ Tessie exploration ___ _x__ Life review _x__ Prayer ___ Reconciliation ___ Sacrament of Sick ___ Supportive presence ___ Wedding ___ Other (describe below) Pastoral Comments patient and spouse are in the room; pt has recently moved back to the area to be close to family; pt is waiting test results and is feeling good about her situation and hopeful about going home; pt gives some life review since [facility]; pt has a jainism connection and welcomes prayer and presence for support today
--- NOTE | 2025-04-21 13:17 | STRESSREP ---
Stress Test Report Pharmacologic myocardial perfusion stress test. 79-year-old lady with a history of chest pain Resting EKG demonstrates sinus bradycardia with a rate of 51 bpm. Resting blood pressure is 158/78 mmHg. 0.4 mg of regadenoson was infused per usual protocol followed by rapid intravenous saline flush injection. Continuous EKG monitoring was performed. The maximum heart rate was 78 bpm which was 54% of max impacted heart rate the maximum workload was 1 metabolic equivalent. At rest there were no ST or T wave changes noted to suggest ischemia and at peak infusion nonspecific ST changes were noted which did not meet the criteria for ischemia. No clinical angina is noted. The final blood pressure was 140/64 mmHg. Myocardial perfusion protocol. 15 mCi of technetium 99m sestamibi was injected at rest. 0.4 mg of regadenoson was infused per usual protocol. At peak infusion 32 mCi of technetium 99m sestamibi was injected stress images were obtained stress and rest images were reconstructed and compared in the short axis vertical long and horizontal long axis. Gated images were also obtained. Perfusion SPECT analysis: Review of the stress images demonstrate normal uptake of tracer noted in all areas of the myocardium. The resting images similar demonstrated normal uptake of tracer noted in all areas of the myocardium. No areas of reversibility are noted to suggest ischemia and no previous infarct is noted. Gated SPECT analysis: The gated ejection fraction is over 60%. Conclusion: Normal pharmacologic myocardial perfusion stress test. Preserved ejection fraction.
--- NOTE | 2025-04-21 14:16 | CASEMGMT ---
Patient has order for discharge. RN CM in to discuss needs at discharge with patient. Patient denies needs or help at discharge. Patient had no further questions or concerns.
--- NOTE | 2025-04-21 14:36 | PHA.DC.MR.R ---
Pharmacy [place] Med Reconciliation Pharmacy Service has performed discharge medication reconciliation for this patient. The patient's discharge medication list was reviewed for discrepancies and discrepancies were resolved. Medications at Discharge Home Medications paroxetine HCl 40 mg tablet (Paxil) 20 mg PO DAILY 08/13/13 Lactobacillus acidophilus (Acidophilus capsule) 175 mg PO DAILY 04/20/25 aspirin 81 mg capsule 81 mg PO DAILY 04/20/25 atorvastatin 20 mg tablet 20 mg PO DAILY 04/20/25 cholecalciferol (vitamin D3) 25 mcg (1,000 unit) chewable tablet (VitaJoy Daily D) 25 mcg PO DAILY 04/20/25 cyanocobalamin (B12)-cobamamide 5,000 mcg-100 mcg sublingual lozenge (B12) 5,000 robin sublingual DAILY supplement 04/20/25 doxepin 10 mg/mL oral concentrate 5 mg PO DAILY 04/20/25 levothyroxine 75 mcg tablet (Synthroid) 75 mcg PO DAILY 04/20/25 lisinopril 5 mg tablet 5 mg PO DAILY 04/20/25 multivitamin-ferrous fumarate-folic acid 18 mg-400 mcg tablet (ABC Complete Women's) 2 tab PO DAILY 04/20/25 omeprazole 20 mg capsule,delayed release 20 mg PO DAILY 04/20/25
[2025-04-21 15:02] VITALS: BP 127/74; PULSE 69; RESP 16; TEMP 36.4; O2SAT 99
== END 2025-04-21 15:17 | disposition home or self-care (01) ==
LOC: ED 16:07 → PCU 16:24
PROVIDERS: Emergency Provider Student in an Organized Health Care Education/Training Program; PCP Internal Medicine; Visit Provider Internal Medicine
DX: R07.89 Other chest pain (principal); I10 Essential (primary) hypertension; E78.00 Pure hypercholesterolemia, unspecified; F41.9 Anxiety disorder, unspecified; Z87.891 Personal history of nicotine dependence; Z79.899 Other long term (current) drug therapy; R00.1 Bradycardia, unspecified; Z79.82 Long term (current) use of aspirin; Z85.89 Personal history of malignant neoplasm of other organs and systems; R13.10 Dysphagia, unspecified
CPT/HCPCS: 36415; 71046; 78452; 80048; 80061; 84484; 85025; 93005; 93017; 99221; 99285; A9500; A4216; G0378; J2785